=== PATIENT | female | born 1965 | race Caucasian/White ===

== ENCOUNTER 2017-07-12 18:32 | Emergency (ER) | payer BC, SELFPAY ==
[2017-07-12 18:33] VITALS: BP 134/100; PULSE 110; RESP 16; TEMP 36.8; O2SAT 98; BMI 25.4
--- NOTE | 2017-07-12 19:02 | CT_ITS ---
CT abdomen pelvis w con CLINICAL INDICATION: Left lower quadrant pain ITS.REASON: LLQ ABD PAIN ORDERING PHYSICIAN: Luis Schmidt MD PATIENT AGE: 52 years COMPARISON: 01/10/2017 TECHNIQUE: Axial images obtained with sagittal and coronal reformats. PROCEDURE: Oral Contrast: None IV Contrast: 75 mL's of [id number]. FINDINGS: No change lower lobe calcified and noncalcified nodules. Prior cholecystectomy with mild biliary prominence which may be related to the previous cholecystectomy. There are small calcific densities adjacent to the common bile duct unchanged likely due to calcified nodes. The spleen, adrenal glands, and pancreas are unremarkable. There is mild submucosal enhancement of the gastric antrum and followers. No obstructing renal or ureteral calculi. There is a 9 mm stone in the mid aspect of the right kidney within a calyx. There are bilateral renal cysts measuring up to 2.4 cm and the left kidney not significant change dating back to 01/08/2016. Nonobstructing uptake calculus lower pole left kidney at 2 mm. Unremarkable appendix. There is diverticulosis of the descending and sigmoid colon with no evidence of diverticulitis. No intestinal obstruction or free air. Prior hysterectomy. No pelvic mass or abnormal fluid collection. No acute bony anomalies. IMPRESSION: 1. Submucosal enhancement and thickening of the gastric antrum and pylorus which may represent gastritis. 2. Bilateral nephrolithiasis, bilateral renal cysts 3. Colonic diverticulosis
[2017-07-12 19:08] LABS: Microscopic, Urine URINE MICROSCOPIC (MICROSCOPIC)
[2017-07-12 19:09] LABS: Basophils % 0.3 % (0.1-2.0); Eosinophils # 0.1 K/mm3 (0.0-0.4); Hematocrit 51.3 % (37.0-47.0); Hemoglobin 16.4 g/dL (12.2-16.2); Lymphocytes # 1.1 K/mm3 (0.7-4.5); Lymphocytes % 16.1 K/mm3 (10-50); Mean Corpuscular HGB Conc 31.9 g/dL (31.8-35.4); Mean Corpuscular Hemoglobin 29.2 pg (27.0-31.2); Mean Corpuscular Volume 91.5 fl (81-99); Mean Platelet Volume 7.6 fl (7.4-10.4); Monocytes # 0.4 K/mm3 (0.1-1.0); Monocytes % 6.3 % (1.7-9.3); Neutrophils # 5.1 K/mm3 (1.8-7.8); Neutrophils % 76.3 % (37.0-80.0); Platelet Count 233 K/mm3 (142-424); Red Blood Count 5.61 M/mm3 (4.20-5.40); Red Cell Distribution Width 12.6 % (11.5-17.5); White Blood Count 6.6 K/mm3 (4.8-10.8)
--- NOTE | 2017-07-12 19:09 | HMH.EDABDPAI ---
ED Disposition Clinical Impression: Gastritis Qualifiers: Gastritis type: other gastritis Chronicity: acute Gastritis bleeding: without bleeding Qualified Code(s): K29.00 - Acute gastritis without bleeding Disposition: Home, Self-Care Condition on Discharge: Good Instructions: [place] Diet, DI for Gastritis Additional Instructions: This is a bland diet, avoid alcohol, NSAIDs, coffee, etc. Take the Protonix daily, as discussed. Follow-up with Dr. Kincaid (GI specialist) if not better. Prescriptions: Pantoprazole Sodium [Protonix 40mg tablet] 40 mg PO DAILY 30 Days #30 tab Referrals: Whit Gee MD [Primary Care Provider] - Dwain Kincaid MD [Staff Physician] - Time of Disposition: 22:08 - Critical Care Critical Care Time: No Attestation: On , the high probability of a clinically significant, sudden or life threatening deterioration of the following system(s) required my full and direct attention, intervention and personal management. The time I documented below is in addition to time spent performing reported procedures but includes the following listed in this critical care notation. Medical Decision Making - Medical Records Medical records reviewed: Yes: I reviewed the patient's medical records. Vital Signs: 07/12/17 18:33 Temperature 98.3 F Temperature Source Oral Pulse Rate [Right Brachial] 110 H Respiratory Rate 16 Blood Pressure [Right Arm] 134/100 Blood Pressure Mean [Right Arm] 111 Blood Pressure Source [Right Arm] Automatic Cuff Blood Pressure Position [Right Arm] Sitting 02 Sat by Pulse Oximetry 98 Oxygen Delivery Method Room Air - Lab Data Lab results reviewed: Yes: I reviewed the patient's lab results. Lab Results 07/12/17 19:00: Urine Color Yellow, Urine Appearance Clear, Urine pH 6.0, Ur Specific [place] 1.025, Urine Protein Negative, Urine Glucose (UA) Negative, Urine Ketones 15, Urine Blood Trace-i, Urine Nitrate Negative, Urine Bilirubin Negative, Urine Urobilinogen 0.2, Ur Leukocyte Esterase Negative, Urine RBC 3-5, Urine WBC 3-5, Ur Squamous Epith Cells 5-10, Urine Bacteria 2+, Urine Mucus 3+ 07/12/17 19:00: WBC 6.6, RBC 5.61 H, Hgb 16.4 H, Hct 51.3 H, MCV 91.5, MCH 29.2, MCHC 31.9, RDW 12.6, Plt Count 233, MPV 7.6, Neut % (Auto) 76.3, Lymph % (Auto) 16.1, [place] % (Auto) 6.3, Eos % (Auto) 1.0, Baso % (Auto) 0.3, Neut # (Auto) 5.1, Lymph # (Auto) 1.1, [place] # (Auto) 0.4, Eos # (Auto) 0.1, Baso # (Auto) 0.0 07/12/17 19:00: Sodium 139, Potassium 3.5, Chloride 102, Carbon Dioxide 32, Anion Gap 8.5, BUN 10, Creatinine 0.73, Estimated Creat Clear 91, Estimated GFR 84, Est GFR ( Amer) 102, Glucose 101, Calcium 8.7, Total Bilirubin 0.5, AST 22, ALT 26, Alkaline Phosphatase 66, Total Protein 7.5, Albumin 3.9, Globulin 3.6 H, Albumin/Globulin Ratio 1.1, Amylase 37, Lipase 136 Result diagrams: 07/12/17 19:00 07/12/17 19:00 Orders (Tests/Meds): ED MEDICATIONS Discontinued Medications Generic Name Dose Route Start Last Admin Trade Name Freq PRN Reason Stop Dose Admin Hydromorphone HCl 0.5 mg 07/12/17 18:56 07/12/17 19:07 Dilaudid 2mg/Ml Syringe IV 07/12/17 18:57 0.5 mg ONCE ONE Administration Iopamidol 75 ml 07/13/17 02:29 07/12/17 20:25 [id number]; 75ml Vial IV 07/13/17 02:30 75 ml ONCE ONE Administration Ondansetron HCl 4 mg 07/12/17 18:59 07/12/17 19:07 Zofran 4mg/2ml Vial IV 07/12/17 19:00 4 mg ONCE ONE Administration Ondansetron HCl 4 mg 07/12/17 22:06 07/12/17 22:19 Zofran 4mg/2ml Vial IV 07/12/17 22:07 4 mg ONCE ONE Administration Pantoprazole Sodium 40 mg 07/12/17 21:45 07/12/17 22:19 Protonix 40mg Vial IV 07/12/17 21:46 40 mg ONCE ONE Administration Pantoprazole Sodium 40 mg 07/12/17 22:06 07/12/17 22:19 Protonix 40mg Tablet PO 07/12/17 22:07 40 mg ONCE ONE Administration Promethazine HCl 1 ricci 07/12/17 22:07 07/12/17 22:19 Phenergan 25mg Tablet Take Home Pack (10) PO 07/26
[2017-07-12 19:23] LABS: Alanine Aminotransferase 26 U/L (12-78); Albumin Level 3.9 gm/dL (3.4-5.0); Albumin/Globulin Ratio 1.1 (1.1-1.8); Alkaline Phosphatase 66 U/L (46-116); Amylase 37 U/L (25-125); Anion Gap 8.5 mEq/L (5-15); Aspartate Amino Transferase 22 U/L (15-37); Bilirubin,Total 0.5 mg/dL (0.2-1.0); Blood Urea Nitrogen 10 mg/dL (7-18); Calcium 8.7 mg/dL (8.5-10.1); Carbon Dioxide 32 mmol/L (21.0-32.0); Chloride 102 mmol/L (98-107); Creatinine Clearance Estimated 91 mL/min (0-300); Creatinine,Serum 0.73 mg/dL (0.55-1.02); Estimated Glomerular Filt Rate 84 ml/min (>60); GFR (African American) 102 ML/MIN (>60); Globulin 3.6 gm/dl (1.3-3.2); Glucose 101 mg/dL (74-106); Lipase 136 u/L (73-393); Potassium 3.5 mmoL/L (3.5-5.1); Sodium 139 mmol/L (136-145); Total Protein,Serum 7.5 gm/dL (6.4-8.2)
[2017-07-12 19:24] LABS: Appearance,Urine CLEAR (Clear); Bilirubin,Urine Negative (Negative); Blood, Urine TRACE-I (Negative); Color,Urine YELLOW (Yellow); Glucose,Urine (UA) Negative (Negative); Ketones,Urine 15 (Negative); Leukocyte Esterase,Urine Negative (Negative); Nitrate,Urine Negative (Negative); Protein,Urine Negative (Negative); Specific Gravity, Urine 1.025 (1.005-1.030); Urobilinogen,Urine 0.2 EU/dl (0.2)
[2017-07-12 20:18] LABS: Bacteria,Urine 2+ /lpf; Mucus,Urine 3+ /lpf
== END 2017-07-12 22:24 | disposition home or self-care (01) ==
LOC: ER 19:12
PROVIDERS: Emergency Provider Emergency Medicine; Family Provider Family Medicine; PCP Family Medicine
DX: K29.00 Acute gastritis without bleeding (principal); Z88.8 Allergy status to other drugs, medicaments and biological substances
CPT/HCPCS: 74177; 80053; 81001; 82150; 83690; 85025; 87086; 96360; 96365; 96366; 96375; 96376; 99282; J2405; Q9967

== ENCOUNTER → 2017-07-18 13:25 | Outpatient (CLI) | payer BC, SELFPAY ==
[2017-07-18 16:41] LABS: Free T4 (Free Thyroxine) 1.42 ng/dl (0.76-1.46); Thyroid Stimulating Hormone 0.82 uIU/ml (0.358-3.740)
[2017-07-20 18:23] LABS: Triiodothyronine (T3) Free 2.7 pg/mL (2.0-4.4)
== END ==
PROVIDERS: PCP Family Medicine; Visit Provider Internal Medicine Endocrinology, Diabetes & Metabolism
DX: E03.8 Other specified hypothyroidism (principal); E06.3 Autoimmune thyroiditis
CPT/HCPCS: 36415; 84439; 84443; 84481

== ENCOUNTER → 2017-09-25 17:15 | Outpatient (CLI) | payer BC, SELFPAY ==
[2017-09-25 19:59] LABS: Free T4 (Free Thyroxine) 1.26 ng/dl (0.76-1.46); Thyroid Stimulating Hormone 0.33 uIU/ml (0.358-3.740)
[2017-09-27 09:11] LABS: Triiodothyronine (T3) Free 3.2 pg/mL (2.0-4.4)
== END ==
PROVIDERS: PCP Family Medicine; Visit Provider Internal Medicine Endocrinology, Diabetes & Metabolism
DX: E03.8 Other specified hypothyroidism (principal); E06.3 Autoimmune thyroiditis
CPT/HCPCS: 36415; 84439; 84443; 84481

== ENCOUNTER → 2017-11-01 17:48 | Outpatient (CLI) | payer BC, SELFPAY ==
[2017-11-01 19:23] LABS: Free T4 (Free Thyroxine) 1.21 ng/dl (0.76-1.46); Thyroid Stimulating Hormone 0.76 uIU/ml (0.358-3.740)
[2017-11-04 06:27] LABS: Triiodothyronine (T3) Free 2.6 pg/mL (2.0-4.4)
== END ==
PROVIDERS: Visit Provider Internal Medicine Endocrinology, Diabetes & Metabolism
DX: E03.8 Other specified hypothyroidism (principal); E06.3 Autoimmune thyroiditis
CPT/HCPCS: 36415; 84439; 84443; 84481

== ENCOUNTER → 2018-02-15 10:22 | Outpatient (CLI) | payer BC, SELFPAY ==
[2018-02-15 11:49] LABS: Basophils % 0.5 % (0.1-2.0); Eosinophils # 0.1 K/mm3 (0.0-0.4); Eosinophils % 1.5 % (0.1-12.0); Hematocrit 46.6 % (37.0-47.0); Hemoglobin 14.7 g/dL (12.2-16.2); Lymphocytes # 2.1 K/mm3 (0.7-4.5); Lymphocytes % 34.6 K/mm3 (10-50); Mean Corpuscular HGB Conc 31.6 g/dL (31.8-35.4); Mean Corpuscular Hemoglobin 28.6 pg (27.0-31.2); Mean Corpuscular Volume 90.6 fl (81-99); Mean Platelet Volume 7.9 fl (7.4-10.4); Monocytes # 0.3 K/mm3 (0.1-1.0); Monocytes % 4.6 % (1.7-9.3); Neutrophils # 3.5 K/mm3 (1.8-7.8); Neutrophils % 58.7 % (37.0-80.0); Platelet Count 248 K/mm3 (142-424); Red Blood Count 5.14 M/mm3 (4.20-5.40); Red Cell Distribution Width 12.5 % (11.5-17.5); White Blood Count 5.9 K/mm3 (4.8-10.8)
[2018-02-15 12:38] LABS: Cholesterol 208 mg/dL (140-200); Potassium 4.4 mmoL/L (3.5-5.1); Sodium 141 mmol/L (136-145)
[2018-02-15 13:01] LABS: Anion Gap 15.4 mEq/L (5-15); Blood Urea Nitrogen 14 mg/dL (7-18); Calcium 8.9 mg/dL (8.5-10.1); Carbon Dioxide 28 mmol/L (21.0-32.0); Chloride 102 mmol/L (98-107); Chol/HDL Ratio 2.2 (1-3.5); Creatinine,Serum 0.72 mg/dL (0.55-1.02); Estimated Glomerular Filt Rate 85 ml/min (>60); GFR (African American) 103 ML/MIN (>60); Glucose 102 mg/dL (74-106); HDL Cholesterol 94 mg/dL (29-89); LDL Cholesterol 105 mg/dL (0-130); Thyroid Stimulating Hormone 0.47 uIU/ml (0.358-3.740); Triglycerides 46 mg/dL (30-200); VLDL Cholesterol 9 mg/dL (0-40)
== END ==
PROVIDERS: PCP Internal Medicine Adolescent Medicine; Visit Provider Internal Medicine Adolescent Medicine
DX: E03.9 Hypothyroidism, unspecified (principal); E03.8 Other specified hypothyroidism; E06.3 Autoimmune thyroiditis
CPT/HCPCS: 36415; 80048; 80061; 84443; 85025

== ENCOUNTER → 2018-03-29 15:32 | Outpatient (CLI) | payer BC, SELFPAY ==
[2018-03-29 17:38] LABS: Free T4 (Free Thyroxine) 0.98 ng/dl (0.76-1.46); Thyroid Stimulating Hormone 1.03 uIU/ml (0.358-3.740)
[2018-04-01 04:07] LABS: Triiodothyronine (T3) Free 2.3 pg/mL (2.0-4.4)
== END ==
PROVIDERS: PCP Internal Medicine Adolescent Medicine; Visit Provider Internal Medicine Endocrinology, Diabetes & Metabolism
DX: E03.8 Other specified hypothyroidism (principal); E06.3 Autoimmune thyroiditis
CPT/HCPCS: 36415; 84439; 84443; 84481

== ENCOUNTER 2018-07-05 13:00 | Outpatient (RCR) | payer BC, SELFPAY | END 2018-07-05 13:05 | disposition home or self-care (01) | LOC: PT 13:00 | PROVIDERS: Visit Provider Podiatrist | DX: M54.5 Low back pain (principal); M54.16 Radiculopathy, lumbar region | CPT/HCPCS: 97010; 97012; 97014; 97110; 97140; 97163; G0283 ==

== ENCOUNTER → 2018-09-11 09:32 | Outpatient (CLI) | payer BC, SELFPAY ==
[2018-09-11 11:05] LABS: Free T4 (Free Thyroxine) 1.29 ng/dl (0.76-1.46); Thyroid Stimulating Hormone 0.57 uIU/ml (0.358-3.740)
[2018-09-12 08:18] LABS: Triiodothyronine (T3) Free 2.9 pg/mL (2.0-4.4)
== END ==
PROVIDERS: Visit Provider Internal Medicine Endocrinology, Diabetes & Metabolism
DX: E03.8 Other specified hypothyroidism (principal); E06.3 Autoimmune thyroiditis
CPT/HCPCS: 36415; 84439; 84443; 84481

== ENCOUNTER → 2018-12-10 08:08 | Outpatient (CLI) | payer BC, SELFPAY ==
--- NOTE | 2018-12-10 08:10 | MR_ITS ---
MR lumbar spine wo/w con, MR 3-d myelogram/MRCP HISTORY: Low back pain, bilateral leg pain, numbness and tingling. Left leg worse. Bilateral feet tenderness. Prior Discectomy in . .REASON: PARESTHESIA OF LOWER EXTREMITY, HX OF LUMBAR DISCECTOMY ORDERING PHYSICIAN: Carly Diamond APRN PATIENT AGE: 53 years Comparison: None TECHNIQUE: Standard multiplanar multiecho sequences are performed without and with gadolinium enhancement contrast. 3-D MIP and myelographic images are also rendered and reviewed FINDINGS: There is normal alignment. Spinal cord ends at the T12-L1 level. L1-L2 and L2-L3 have an unremarkable appearance. L3-L4: Mild concentric bulging disc with a small broad-based central disc protrusion slightly eccentric toward the left abutting the anteromedial aspect of the left L4 nerve root without displacement. Mild facet and ligamentum flavum hypertrophy. L4-L5: Degenerative disc disease with bulging disc with facet and ligamentum hypertrophy. Minimal foraminal disc protrusion on the left. The bulging disc does abut the major aspect of both L5 nerve roots. Bilateral lateral recess narrowing present. There is mild right-sided foraminal narrowing. L5-S1: Degenerative disc disease. Prior laminectomy on the left. There is defect within the disc posteriorly on the left this level which may be due to the prior surgery. There is some mild enhancement of the perineural soft tissues medial to the left S1 nerve root consistent with some mild epidural fibrosis. No extruded herniated disc is evident. IMPRESSION: 1. L3-L4: Mild concentric bulging disc with a small broad-based central disc protrusion slightly eccentric toward the left abutting the anteromedial aspect of the left L4 nerve root without displacement. Mild facet and ligamentum flavum hypertrophy. 2. L4-L5: Degenerative disc disease with bulging disc with facet and ligamentum hypertrophy. Minimal foraminal disc protrusion on the left. The bulging disc does abut the anterior aspect of both L5 nerve roots. Bilateral lateral recess narrowing present. There is mild right-sided foraminal narrowing. 3. L5-S1: Degenerative disc disease. Prior laminectomy on the left. There is defect within the disc posteriorly on the left this level which may be due to the prior surgery. There is some mild enhancement of the perineural of the left S1 nerve root consistent with some mild epidural fibrosis. 4. No extruded herniated disc or canal stenosis
== END ==
PROVIDERS: PCP Nurse Practitioner Family; Visit Provider Nurse Practitioner Family
DX: R20.2 Paresthesia of skin (principal); Z98.890 Other specified postprocedural states
CPT/HCPCS: 72158; 76376; A9576

== ENCOUNTER → 2018-12-12 17:34 | Outpatient (CLI) | payer BC, SELFPAY ==
[2018-12-12 18:16] LABS: Basophils % 0.4 % (0.1-2.0); Eosinophils # 0.1 K/mm3 (0.0-0.4); Eosinophils % 1.2 % (0.1-12.0); Hematocrit 43.2 % (37.0-47.0); Hemoglobin 13.3 g/dL (12.2-16.2); Lymphocytes # 2.3 K/mm3 (0.7-4.5); Lymphocytes % 27.4 % (10-50); Mean Corpuscular HGB Conc 30.7 g/dL (31.8-35.4); Mean Corpuscular Hemoglobin 27.2 pg (27.0-31.2); Mean Corpuscular Volume 88.7 fl (81-99); Mean Platelet Volume 7.6 fl (7.4-10.4); Monocytes # 0.5 K/mm3 (0.1-1.0); Monocytes % 5.5 % (1.7-9.3); Neutrophils # 5.4 K/mm3 (1.8-7.8); Neutrophils % 65.5 % (37.0-80.0); Platelet Count 284 K/mm3 (142-424); Red Blood Count 4.87 M/mm3 (4.20-5.40); Red Cell Distribution Width 12.3 % (11.5-17.5); White Blood Count 8.2 K/mm3 (4.8-10.8)
[2018-12-12 19:02] LABS: Free Thyroxine Index 3.6 ug/dL (5.93-13.13); T4 (Thyroxine) 11.4 ug/dl (4.7-13.3); Triiodothryronine (T3) Uptake 32 % (31-39)
[2018-12-15 21:38] LABS: Vitamin B12 927 pg/mL (232-1245); Vitamin D 25 Hydroxy 38.1 ng/mL (30.0-100.0)
== END ==
PROVIDERS: Visit Provider Nurse Practitioner Family
DX: R20.2 Paresthesia of skin (principal)
CPT/HCPCS: 36415; 82607; 82652; 84436; 84443; 84479; 85025

== ENCOUNTER 2018-12-27 23:12 | Observation (INO) ==
[2018-12-27 23:38] LABS: Microscopic, Urine URINE MICROSCOPIC (MICROSCOPIC)
[2018-12-27 23:40] LABS: Appearance,Urine CLEAR (Clear); Bilirubin,Urine Negative (Negative); Blood, Urine Negative (Negative); Color,Urine YELLOW (Yellow); Glucose,Urine (UA) Negative (Negative); Ketones,Urine 1+ (Negative); Leukocyte Esterase,Urine Negative (Negative); Protein,Urine Negative (Negative); Urobilinogen,Urine 0.2 EU/dl (0.2)
[2018-12-27 23:41] LABS: WBC,Urine Occasional #/hpf (0-3)
[2018-12-27 23:52] LABS: Basophils % 0.3 % (0.1-2.0); Eosinophils # 0.1 K/mm3 (0.0-0.4); Eosinophils % 0.8 % (0.1-12.0); Hematocrit 45.5 % (37.0-47.0); Hemoglobin 13.9 g/dL (12.2-16.2); Lymphocytes # 2.4 K/mm3 (0.7-4.5); Lymphocytes % 19.6 % (10-50); Mean Corpuscular HGB Conc 30.7 g/dL (31.8-35.4); Mean Corpuscular Volume 92.8 fl (81-99); Mean Platelet Volume 7.9 fl (7.4-10.4); Monocytes # 0.5 K/mm3 (0.1-1.0); Monocytes % 4.2 % (1.7-9.3); Neutrophils # 9.2 K/mm3 (1.8-7.8); Platelet Count 314 K/mm3 (142-424); Red Cell Distribution Width 12.9 % (11.5-17.5); White Blood Count 12.3 K/mm3 (4.8-10.8)
[2018-12-28 00:05] LABS: Albumin/Globulin Ratio 1.1 (1.1-1.8); Bilirubin,Total 0.4 mg/dL (0.2-1.0); C-Reactive Protein 11.2 mg/L (0.0-0.9); Calcium 8.6 mg/dL (8.5-10.1); Globulin 3.5 gm/dl (1.3-3.2); Total Protein,Serum 7.5 gm/dL (6.4-8.2)
--- NOTE | 2018-12-28 00:52 | Emergency Department Note ---
ED Disposition Clinical Impression: Diverticulitis Sepsis Qualifiers: Sepsis type: sepsis due to unspecified organism Qualified Code(s): A41.9 - Sepsis, unspecified organism Disposition: Admitted As Inpatient Condition on Discharge: Good Instructions: DI for Acute Abdomen Referrals: Ilya Mejía MD [Primary Care Provider] - - Critical Care Critical Care Time: No Attestation: On 12/27/18, the high probability of a clinically significant, sudden or life threatening deterioration of the following system(s) required my full and direct attention, intervention and personal management. The time I documented below is in addition to time spent performing reported procedures but includes the following listed in this critical care notation. Medical Decision Making - Medical Records Medical records reviewed: Yes: I reviewed the patient's medical records. - Lan Inquiry Pt receiving controlled substance: No Vital Signs: 12/27/18 23:14 12/27/18 23:23 Temperature 98.2 F 98.2 F Temperature Source Oral Oral Pulse Rate [Right] 102 H 102 H Respiratory Rate 20 20 Blood Pressure [Right Arm] 132/52 L 132/52 L Blood Pressure Mean [Right Arm] 78 78 02 Sat by Pulse Oximetry 100 100 - Lab Data Lab results reviewed: Yes: I reviewed the patient's lab results. Lab Results 12/27/18 23:31: Urine Color Yellow, Urine Appearance Clear, Urine pH 7.0, Ur Specific [place] 1.020, Urine Protein Negative, Urine Glucose (UA) Negative, Urine Ketones 1+, Urine Blood Negative, Urine Nitrate Negative, Urine Bilirubin Negative, Urine Urobilinogen 0.2, Ur Leukocyte Esterase Negative, Urine WBC Occasional, Ur Squamous Epith Cells 10-20 12/27/18 23:40: WBC 12.3 H, RBC 4.90, Hgb 13.9, Hct 45.5, MCV 92.8, MCH 28.5, MCHC 30.7 L, RDW 12.9, Plt Count 314, MPV 7.9, Neut % (Auto) 75.0, Lymph % (Auto) 19.6, [place] % (Auto) 4.2, Eos % (Auto) 0.8, Baso % (Auto) 0.3, Neut # (Auto) 9.2 H, Lymph # (Auto) 2.4, [place] # (Auto) 0.5, Eos # (Auto) 0.1, Baso # (Auto) 0.0 12/27/18 23:40: Sodium 139, Potassium 4.0, Chloride 101, Carbon Dioxide 28, Anion Gap 14.0, BUN 13, Creatinine 0.69, Estimated Creat Clear 99, Estimated GFR 89, Est GFR ( Amer) 108, Glucose 89, Calcium 8.6, Total Bilirubin 0.4, AST 24, ALT 34, Alkaline Phosphatase 87, C-Reactive Protein 11.2 H, Total Prote in 7.5, Albumin 4.0, Globulin 3.5 H, Albumin/Globulin Ratio 1.1, Amylase 44, Lipase 361 12/27/18 23:40: Lactate 0.6 12/27/18 23:40: ESR 19 Result diagrams: 12/27/18 23:40 12/27/18 23:40 Orders (Tests/Meds): ED MEDICATIONS Generic Name Dose Route Start Last Admin Trade Name Freq PRN Reason Stop Dose Admin Sodium Chloride 1,000 mls @ 999 mls/hr 12/27/18 23:30 12/27/18 23:41 Sod Chlor 0.9% 1000ml Bag IV 12/28/18 00:30 999 mls/hr .Q1H1M JEFF Administration Clindamycin Phosphate 900 mg/ 106 mls @ 100 mls/hr 12/28/18 01:45 Sodium Chloride IV 01/11/19 01:44 Q8H JEFF Protocol Levofloxacin/Dextrose 750 mg in 150 mls @ 100 mls/hr 12/28/18 01:45 Levofloxacin 750mg/150ml Premix IV 01/11/19 01:44 Q24H JEFF Protocol Discontinued Medications Generic Name Dose Route Start Last Admin Trade Name Freq PRN Reason Stop Dose Admin Ioversol 75 ml 12/28/18 00:37 12/28/18 00:38 Rad-Optiray 350 100ml Vial IV 12/28/18 00:38 75 ml ONCE ONE Administration Protocol Ketorolac Tromethamine 30 mg 12/27/18 23:27 12/27/18 23:41 Toradol 30mg/Ml Vial IV 12/27/18 23:28 30 mg ONCE ONE Administration Ondansetron HCl 4 mg 12/27/18 23:27 12/27/18 23:41 Zofran 4mg/2ml Vial IV 12/27/18 23:28 4 mg ONCE ONE Administration Sodium Chloride 10 ml 12/28/18 00:37 12/28/18 00:38 Rad-Saline Flush 10ml Syringe IV 12/28/18 00:38 10 ml ONCE ONE Administration ORDERS Category Date Time Status CT abdomen pelvis w con Stat Cat Scan 12/27/18 23:26 Taken Blood Culture Stat Micro 12/27/18 23:28 Received - CT Data CT Scan: Abdomen, Pelvis Time Received: 01:[address] Reviewed: Yes: I have viewed the radiologist's interpretation Preliminary Findings: Abnormal (diverticulitis) Nausea/Vomiting/Diarrhea HPI - General Chief complaint: Abdominal Pain Stated complaint: abd pain left side Time Seen by Provider: 12/27/18 23:20 Mode of Arrival: Ambulatory Source of Information: Patient, Medical Record Limitations: No Limitations Description of Symptoms (Recalled from ER Triage Doc. by RN): Pt states since last night she has had lower left sided abd pain with nausea, denies diarrhea or vomiting. - History of Present Illness HPI Narrative: pt with progressive lt lower abd pain with nausea and has hx of diverticulitis MD complaint: nausea, abdominal pain Onset (ago): hour(s) Associated Abdominal Pain: Yes Location of pain: LLQ Severity: moderate Associated symptoms: denies other symptoms - Related Data Home Medications Medication Instructions Recorded Confirmed diazepam 2 mg tablet 2 mg PO QHS tab 06/27/18 12/27/18 levothyroxine 88 mcg tablet 75 mcg PO ONCE tab 06/27/18 12/27/18 Previous Rx's Medication Instructions Recorded phenazopyridine 200 mg tablet 200 mg PO TID 0 Days #6 tab 12/22/18 sulfamethoxazole 800 1 tab PO BID 10 Days #20 tab 12/22/18 mg-trimethoprim 160 mg tablet Allergies Allergy/AdvReac Type Severity Reaction Status Date / Time codeine [CODEINE] Allergy Intermediate SEVERE Verified 12/22/18 17:20 NAUSEA AND VOMITING morphine [MORPHINE] Allergy Intermediate SEVERE Verified 12/22/18 17:20 NAUSEA cefaclor [From CECLOR] Allergy Mild Verified 12/22/18 17:20 metronidazole [From FLAGYL] Allergy Unknown Verified 12/22/18 17:20 [facility] History - Hepatitis A Screen Drug use history?: No High risk sexual behaviors?: No History of sexually transmitted infection?: No Currently employed?: No Childcare worker?: No Do you have indoor plumbing?: Yes Do you have electricity?: Yes Attestation statement:: This patient has been screened for Hepatitis A risk factors. I have reviewed the patient's past medical history: Yes Medical History: Reports:: Gastroesophageal Reflux Disease(GERD) Denies:: Cancer, Diabetes Mellitus Type 1, Diabetes Mellitus Type 2, MRSA Other Medical History: Reports: Hypothyroidism Other Surgeries: Yes: No Previous Surgery, Cholecystectomy, Hysterectomy- Partial, Other Amputation: No Fractures: No - Social History Smoking Status: Never smoker Alcohol Intake: never Substance Use Type: denies use Occupational Status: employed Housing: house Household Members: family Family Hx:: No significant family history ROS Obtained: Yes All systems reviewed & no additional complaints - Constitutional Constitutional: Denies fever(s) - Eyes Eyes: Denies change in vision - ENT Ears, Nose, Mouth, and Throat: Denies sore throat - Cardiovascular Cardiovascular: Denies chest pain - Respiratory Respiratory: No cough - Gastrointestinal Gastrointestingal: Reports: as per HPI, abdominal pain, nausea. Denies: diarrhea, bright red blood in stools, black, tarry stools - Genitourinary Female Genitourinary: Denies abnormal vaginal bleeding, Denies urinary hesitancy, Denies urinary urgency - Musculoskeletal Musculoskeletal: Denies joint pain - Integumentary/Breasts Skin/Breast: Denies rash - Neurologic Neurologic: Denies seizure-like activity Physical Exam - General General appearance: alert, in distress - Head Head exam: normocephalic - Eye Eye exam: Present: PERRL, EOMI. Absent: scleral icterus - ENT ENT exam: Present: mucous membranes dry - Neck Neck exam: Present: trachea midline - Respiratory Respiratory exam: Absent: respiratory distress - Cardiovascular Cardiovascular exam: Present: regular rate, systolic murmur - Abdominal Exam Abdominal exam: Present: soft, tenderness. Absent: guarding, rebound, rigidity Abdominal tenderness: Present: LLQ, moderate - Extremities Exam Extremities exam: Present: full ROM - Back Exam Back exam: Absent: CVA tenderness (L) - Neurological Exam Neurological exam: Present: alert, oriented X3 - Psychiatric Psychiatric exam: Present: normal affect - Skin Skin exam: Absent: rash
[2018-12-28 07:03] LABS: Basophils % 0.2 % (0.1-2.0); Eosinophils % 0.2 % (0.1-12.0); Hematocrit 41.8 % (37.0-47.0); Hemoglobin 12.9 g/dL (12.2-16.2); Lymphocytes % 10.3 % (10-50); Mean Corpuscular HGB Conc 30.9 g/dL (31.8-35.4); Mean Corpuscular Volume 93.4 fl (81-99); Mean Platelet Volume 8.1 fl (7.4-10.4); Monocytes # 0.4 K/mm3 (0.1-1.0); Monocytes % 3.5 % (1.7-9.3); Neutrophils # 8.5 K/mm3 (1.8-7.8); Neutrophils % 85.8 % (37.0-80.0); Platelet Count 246 K/mm3 (142-424); Red Blood Count 4.48 M/mm3 (4.20-5.40); Red Cell Distribution Width 12.8 % (11.5-17.5); White Blood Count 9.9 K/mm3 (4.8-10.8)
[2018-12-28 07:09] LABS: Anion Gap 10.6 mEq/L (5-15); Calcium 8.2 mg/dL (8.5-10.1)
[2018-12-28 07:19] LABS: Lymphocytes % 3 % (10-50); Monocytes % 13 % (2-9); Neutrophils % 79 % (42-76); RBC Morphology Normal; Total Cells Counted 100
--- NOTE | 2018-12-28 08:31 | History & Physical Report ---
*Admission Date: 12/28/18 *Chief complaint: abdominal pain *History of present illness: Ms. Courtney is a 53-year-old female with history of diverticulosis, reflux, anxiety, upper thyroidism, and kidney stones. She states she was camping this for the holiday and had abrupt onset of left lower quadrant abdominal pain and nausea yesterday. She came to the hospital due to the pain where she was found to have tachycardia, elevated white cell count, and a CT positive for pericolonic stranding indicative of diverticulitis. She is denies any nausea this morning, chest pain, shortness of breath, diarrhea, vomiting. States her abdominal pain is slightly better. Of note she was 5 days into a course of Bactrim for a UTI diagnosed on Sunday. Otherwise feels well with no acute complaints. Is afebrile and hemodynamically stable on interview this morning [facility] History I have reviewed the patient's past medical history: Yes Medical History: Reports:: Gastroesophageal Reflux Disease(GERD) Denies:: Cancer, Diabetes Mellitus Type 1, Diabetes Mellitus Type 2, MRSA *Have you ever received a pneumonia vaccine?: No *Have you received a flu vaccine this season?: Yes Other Medical History: Reports: Hypothyroidism Other Surgeries: Yes: No Previous Surgery, Cholecystectomy, Hysterectomy- Partial, Other Amputation: No Fractures: No - *Social History Educational Level: Completed College Smoking Status: Never smoker Alcohol Intake: never Substance Use Type: denies use *Occupational Status:: employed Housing: house Household Members: spouse *Travel in the last 8 weeks: Inside the [facility] - Psychiatric History Expresses thoughts of harming self/others: None Suicide Plan Description: No Plan Family Hx:: No significant family history Review of Systems - Review of Systems Review of systems:: pertinent systems reviewed and negative unless documented below (14pt review of systems performed with pertinent positives and negatives as stated previously.) - *Neurologic Denies seizure-like activity Meds Home Medications Medication Instructions Recorded Confirmed Type diazepam 2 mg tablet 2 mg PO NEEDED PRN tab 06/27/18 12/28/18 History phenazopyridine 200 mg tablet 200 mg PO TID 0 Days #6 tab 12/22/18 12/27/18 Rx sulfamethoxazole 800 1 tab PO BID 10 Days #20 tab 12/22/18 12/28/18 Rx mg-trimethoprim 160 mg tablet Ciprofloxacin HCl [Ciprofloxacin 500 mg PO BID 12 Days #24 tab 12/28/18 Rx 500mg Tab] Doxycycline Hyclate [Doxycycline 100 mg PO Q12 12 Days #24 cap 12/28/18 Rx 100mg Capsule] Levothyroxine Sodium 75 mcg PO DAILY 12/28/18 12/28/18 History [Levothyroxine 75mcg (0.075mg) Tab] Allergies Allergy/AdvReac Type Severity Reaction Status Date / Time codeine [CODEINE] Allergy Intermediate SEVERE Verified 12/22/18 17:20 NAUSEA AND VOMITING morphine [MORPHINE] Allergy Intermediate SEVERE Verified 12/22/18 17:20 NAUSEA cefaclor [From CECLOR] Allergy Mild Verified 12/22/18 17:20 metronidazole [From FLAGYL] Allergy Unknown Verified 12/22/18 17:20 Exam Vital signs and Labs for Last 24 Hours: Temp Pulse Resp BP Pulse Ox 97.6 F 81 18 102/72 L 98 12/28/18 03:58 12/28/18 03:58 12/28/18 03:58 12/28/18 04:00 12/28/18 03:58 Laboratory Results - last 24 hr 12/27/18 23:31: Urine Color Yellow, Urine Appearance Clear, Urine pH 7.0, Ur Specific [place] 1.020, Urine Protein Negative, Urine Glucose (UA) Negative, Urine Ketones 1+, Urine Blood Negative, Urine Nitrate Negative, Urine Bilirubin Negative, Urine Urobilinogen 0.2, Ur Leukocyte Esterase Negative, Urine WBC Occasional, Ur Squamous Epith Cells 10-20 12/27/18 23:40: WBC 12.3 H, RBC 4.90, Hgb 13.9, Hct 45.5, MCV 92.8, MCH 28.5, MCHC 30.7 L, RDW 12.9, Plt Count 314, MPV 7.9, Neut % (Auto) 75.0, Lymph % (Auto) 19.6, [place] % (Auto) 4.2, Eos % (Auto) 0.8, Baso % (Auto) 0.3, Neut # (Auto) 9.2 H, Lymph # (Auto) 2.4, [place] # (Auto) 0.5, Eos # (Auto) 0.1, Baso # (Auto) 0.0 12/27/18 23:40: Sodium 139, Potassium 4.0, Chloride 101, Carbon Dioxide 28, Anion Gap 14.0, BUN 13, Creatinine 0.69, Estimated Creat Clear 99, Estimated GFR 89, Est GFR ( Amer) 108, Glucose 89, Calcium 8.6, Total Bilirubin 0.4, AST 24, ALT 34, Alkaline Phosphatase 87, C-Reactive Protein 11.2 H, Total Protein 7.5, Albumin 4.0, Globulin 3.5 H, Albumin/Globulin Ratio 1.1, Amylase 44, Lipase 361 12/27/18 23:40: Lactate 0.6 12/27/18 23:40: ESR 19 12/28/18 06:27: WBC 9.9, RBC 4.48, Hgb 12.9, Hct 41.8, MCV 93.4, MCH 28.8, MCHC 30.9 L, RDW 12.8, Plt Count 246, MPV 8.1, Neut % (Auto) 85.8 H, Lymph % (Auto) 10.3, [place] % (Auto) 3.5, Eos % (Auto) 0.2, Baso % (Auto) 0.2, Neut # (Auto) 8.5 H, Lymph # (Auto) 1.0, [place] # (Auto) 0.4, Eos # (Auto) 0.0, Baso # (Auto) 0.0, Total Counted 100, Neutrophils % (Manual) 79 H, Lymphocytes % (Manual) 3 L, Atypical Lymphs % 5.0, Monocytes % (Manual) 13 H, Platelet Estimate Normal, RBC Morphology Normal 12/28/18 06:27: Sodium 138, Potassium 4.6, Chloride 104, Carbon Dioxide 28, Anion Gap 10.6, BUN 11, Creatinine 0.67, Estimated Creat Clear 104, Estimated GFR 92, Est GFR ( Amer) 112, Glucose 133 H D, Calcium 8.2 L I & O for Last 24 hours: Intake & Output 12/25/18 12/26/18 12/27/18 12/28/18 23:59 23:59 23:59 23:59 Intake Total 1405 / 1405 Output Total 175 / 175 Balance 1230 / 1230 Weight 65.771 kg 66.848 kg - *Routine HEENT Exam Head: Present: normocephalic Eye: Present: EOMI, PERRL ENT: Present: mucous membranes moist - *Routine Neck Exam Present: supple. Absent: lymphadenopathy - *Routine Respiratory Exam Present: CTA bilaterally - *Routine Cardiovascular Exam Present: RRR - *Routine Abdominal Exam Present: soft, normoactive bowel sounds, tenderness (Left lower quadrant medial to iliac crest. Mild tenderness in right abdomen as well. Nondistended, no guarding.) - *Routine Extremities Exam Absent: cyanosis, clubbing, edema - *Routine Skin Exam Present: warm. Absent: rash - *Routine Neurological Exam Present: alert, oriented X3 - Detailed Eye Exam Eyelids: Left normal inspection Assessment and Plan (1) Diverticulitis Current visit: Yes Status: Acute Category: Medical Code(s): K57.92 - Diverticulitis of intestine, part unspecified, without perforation or abscess without bleeding See CT report for full description. Left lower quadrant, no abscess. Abx as ordered. Advance diet, monitor for improvement. If Sx defervesce, likely DC tomorrow or Sunday pending improvement and hemodynamic stability. (2) Sepsis Current visit: Yes Status: Acute Qualifiers: Sepsis type: sepsis due to unspecified organism Qualified Code(s): A41.9 - Sepsis, unspecified organism Category: Medical Code(s): A41.9 - Sepsis, unspecified organism presented with abdominal pain, leukocytosis >12k, tachycardia. Initaited on IV abx. Cultures obtained. CT positive for diverticulitis and left lower quadrant pericolic stranding. Monitor for improvement in pain. IV opiates PRN for pain. Will advance diet slowly with liquid diet today. (3) Hypothyroidism (acquired) Current visit: Yes Status: Chronic Category: Medical Code(s): E03.9 - Hypothyroidism, unspecified POA. continue home meds. (4) Urinary tract infection Current visit: No Status: Acute Qualifiers: Urinary tract infection type: acute cystitis Category: Medical Code(s): N39.0 - Urinary tract infection, site not specified POA. stopped out pt meds. Covered with inpt IV abx. Sx resolving. - Assessment and plan all Dx Assessment and Plan for all problems:: 53-year-old female with diverticulitis. Continue IV antibiotics and IV fluids. Will advance diet today with clear liquids for lunch and if tolerated, full liquids for dinner. Manage pain and nausea with p.o. meds. If remains stable with improvement in symptoms and advancement of diet, plan for discharge tomorrow on a course of ciprofloxacin and doxycycline to complete 14 days of medical management for diverticulitis.
--- NOTE | 2018-12-28 10:05 | Pharmacy Consult Notes ---
[facility] Pharmacy VTE Monitoring - Patient Demographics Admission date: 12/28/18 Report Date: 12/28/18 Time: 10:05 Allergies/Adverse Reactions: Patient Allergies codeine [CODEINE] Allergy (Intermediate, Verified 12/22/18 17:20) SEVERE NAUSEA AND VOMITING morphine [MORPHINE] Allergy (Intermediate, Verified 12/22/18 17:20) SEVERE NAUSEA cefaclor [From CECLOR] Allergy (Mild, Verified 12/22/18 17:20) metronidazole [From FLAGYL] Allergy (Unknown, Verified 12/22/18 17:20) Height: 1.63 m Weight: 66.848 kg Patient Problems: Current Active Problems (Updated 12/28/18 @ 08:35 by Ilya Mejía MD) Diverticulitis (Acute) Sepsis (Acute) Hypothyroidism (acquired) (Chronic) - VTE Risk Labs: VTE Related Lab Results Hgb 12.9 g/dL (12.2-16.2) 12/28/18 06:27 Hct 41.8 % (37.0-47.0) 12/28/18 06:27 Plt Count 246 K/mm3 (142-424) 12/28/18 06:27 BUN 11 mg/dL (7-18) 12/28/18 06:27 Creatinine 0.67 mg/dL (0.55-1.02) 12/28/18 06:27 Estimated Creat Clear 104 mL/min (50-200) 12/28/18 06:27 Was VTE Risk Assessment Performed: Yes VTE Score: 2 VTE Risk Level: Very Low Risk - Prophylaxis VTE Prophylaxis Ordered?: Yes Types of VTE Prophylaxis: TEDS Knee High Location of Applied Device: Bilateral Lower Extremeties
--- NOTE | 2018-12-28 16:09 | Discharge Summary ---
General - General Admission date:: 12/28/18 Discharge date: 12/29/18 HPI HPI: Ms. Courtney is a 53-year-old female with history of diverticulosis, reflux, anxiety, upper thyroidism, and kidney stones. She states she was camping this weekend for the holiday and had abrupt onset of left lower quadrant abdominal pain and nausea yesterday. She came to the hospital due to the pain where she was found to have tachycardia, elevated white cell count, and a CT positive for pericolonic stranding indicative of diverticulitis. She is denies any nausea this morning, chest pain, shortness of breath, diarrhea, vomiting. States her abdominal pain is slightly better. Of note she was 5 days into a course of Bactrim for a UTI diagnosed on Sunday. Otherwise feels well with no acute complaints. Is afebrile and hemodynamically stable on interview this morning Hospital Course Hospital Course: Initiated on IV antibiotics for diverticulitis. Patient symptoms of abdominal pain improved. Remained afebrile and hemodynamically stable. Transition to oral antibiotics to complete a course of ciprofloxacin and doxycycline. Diet was advanced during hospitalization with good tolerance. Patient improving and meeting criteria for discharge home. Denies nausea, diarrhea, emesis, dysuria, shortness of breath, chest pain. Medically stable for discharge home Objective Vital signs: Temp Pulse Resp BP Pulse Ox 97.5 F L 89 17 104/62 L 98 12/28/18 08:24 12/28/18 08:24 12/28/18 08:24 12/28/18 08:24 12/28/18 11:12 Narrative: - *Routine HEENT Exam Head: Present: normocephalic Eye: Present: EOMI, PERRL ENT: Present: mucous membranes moist - *Routine Neck Exam Present: supple. Absent: lymphadenopathy - *Routine Respiratory Exam Present: CTA bilaterally - *Routine Cardiovascular Exam Present: RRR - *Routine Abdominal Exam Present: soft, normoactive bowel sounds, interval improvement in tenderness (Left lower quadrant medial to iliac crest. Nondistended, no guarding.) - *Routine Extremities Exam Absent: cyanosis, clubbing, edema - *Routine Skin Exam Present: warm. Absent: rash - *Routine Neurological Exam Present: alert, oriented X3 Results Labs on day of discharge: Labs from last 24 hours 12/28/18 12/28/18 12/27/18 06:27 06:27 23:40 WBC 9.9 RBC 4.48 Hgb 12.9 Hct 41.8 MCV 93.4 MCH 28.8 MCHC 30.9 L RDW 12.8 Plt Count 246 MPV 8.1 Neut % (Auto) 85.8 H Lymph % (Auto) 10.3 [place] % (Auto) 3.5 Eos % (Auto) 0.2 Baso % (Auto) 0.2 Neut # (Auto) 8.5 H Lymph # (Auto) 1.0 [place] # (Auto) 0.4 Eos # (Auto) 0.0 Baso # (Auto) 0.0 Total Counted 100 Neutrophils % (Manual) 79 H Lymphocytes % (Manual) 3 L Atypical Lymphs % 5.0 Monocytes % (Manual) 13 H Platelet Estimate Normal RBC Morphology Normal ESR 19 Sodium 138 Potassium 4.6 Chloride 104 Carbon Dioxide 28 Anion Gap 10.6 BUN 11 Creatinine 0.67 Estimated Creat Clear 104 Estimated GFR 92 Est GFR ( Amer) 112 Glucose 133 H D Lactate Calcium 8.2 L Total Bilirubin AST ALT Alkaline Phosphatase C-Reactive Protein Total Protein Albumin Globulin Albumin/Globulin Ratio Amylase Lipase Urine Color Urine Appearance Urine pH Ur Specific [place] Urine Protein Urine Glucose (UA) Urine Ketones Urine Blood Urine Nitrate Urine Bilirubin Urine Urobilinogen Ur Leukocyte Esterase Urine WBC Ur Squamous Epith Cells 12/27/18 12/27/18 12/27/18 23:40 23:40 23:40 WBC 12.3 H RBC 4.90 Hgb 13.9 Hct 45.5 MCV 92.8 MCH 28.5 MCHC 30.7 L RDW 12.9 Plt Count 314 MPV 7.9 Neut % (Auto) 75.0 Lymph % (Auto) 19.6 [place] % (Auto) 4.2 Eos % (Auto) 0.8 Baso % (Auto) 0.3 Neut # (Auto) 9.2 H Lymph # (Auto) 2.4 [place] # (Auto) 0.5 Eos # (Auto) 0.1 Baso # (Auto) 0.0 Total Counted Neutrophils % (Manual) Lymphocytes % (Manual) Atypical Lymphs % Monocytes % (Manual) Platelet Estimate RBC Morphology ESR Sodium 139 Potassium 4.0 Chloride 101 Carbon Dioxide 28 Anion Gap 14.0 BUN 13 Creatinine 0.69 Estimated Creat Clear 99 Estimated GFR 89 Est GFR ( Amer) 108 Glucose 89 Lactate 0.6 Calcium 8.6 Total Bilirubin 0.4 AST 24 ALT 34 Alkaline Phosphatase 87 C-Reactive Protein 11.2 H Total Protein 7.5 Albumin 4.0 Globulin 3.5 H Albumin/Globulin Ratio 1.1 Amylase 44 Lipase 361 Urine Color Urine Appearance Urine pH Ur Specific [place] Urine Protein Urine Glucose (UA) Urine Ketones Urine Blood Urine Nitrate Urine Bilirubin Urine Urobilinogen Ur Leukocyte Esterase Urine WBC Ur Squamous Epith Cells 12/27/18 23:31 WBC RBC Hgb Hct MCV MCH MCHC RDW Plt Count MPV Neut % (Auto) Lymph % (Auto) [place] % (Auto) Eos % (Auto) Baso % (Auto) Neut # (Auto) Lymph # (Auto) [place] # (Auto) Eos # (Auto) Baso # (Auto) Total Counted Neutrophils % (Manual) Lymphocytes % (Manual) Atypical Lymphs % Monocytes % (Manual) Platelet Estimate RBC Morphology ESR Sodium Potassium Chloride Carbon Dioxide Anion Gap BUN Creatinine Estimated Creat Clear Estimated GFR Est GFR ( Amer) Glucose Lactate Calcium Total Bilirubin AST ALT Alkaline Phosphatase C-Reactive Protein Total Protein Albumin Globulin Albumin/Globulin Ratio Amylase Lipase Urine Color Yellow Urine Appearance Clear Urine pH 7.0 Ur Specific [place] 1.020 Urine Protein Negative Urine Glucose (UA) Negative Urine Ketones 1+ Urine Blood Negative Urine Nitrate Negative Urine Bilirubin Negative Urine Urobilinogen 0.2 Ur Leukocyte Esterase Negative Urine WBC Occasional Ur Squamous Epith Cells 10-20 DS: Diagnosis - Discharge Diagnosis (1) Diverticulitis Status: Acute (2) Sepsis Status: Resolved (3) Hypothyroidism (acquired) Status: Chronic (4) Urinary tract infection Status: Resolved Discharge Plan - Patient Discharge Instructions ACTIVITY: Continue current activity DIET: continue same diet Patient Instructions: DI for Diverticulitis, DI for Sepsis -- Adult - Follow up Plan Follow up with: Ilya Mejía MD [Primary Care Provider] - Disposition: Home, Self-Snf Medications: Home Medications Medication Instructions Recorded Confirmed Type diazepam 2 mg tablet 2 mg PO NEEDED PRN tab 06/27/18 12/28/18 History phenazopyridine 200 mg tablet 200 mg PO TID 0 Days #6 tab 12/22/18 12/27/18 Rx sulfamethoxazole 800 1 tab PO BID 10 Days #20 tab 12/22/18 12/28/18 Rx mg-trimethoprim 160 mg tablet Ciprofloxacin HCl [Ciprofloxacin 500 mg PO BID 12 Days #24 tab 12/28/18 Rx 500mg Tab] Doxycycline Hyclate [Doxycycline 100 mg PO Q12 12 Days #24 cap 12/28/18 Rx 100mg Capsule] Levothyroxine Sodium 75 mcg PO DAILY 12/28/18 12/28/18 History [Levothyroxine 75mcg (0.075mg) Tab] Prescriptions/Medication Reconciliation: New Doxycycline Hyclate [Doxycycline 100mg Capsule] 100 mg PO Q12 12 Days #24 cap Ciprofloxacin HCl [Ciprofloxacin 500mg Tab] 500 mg PO BID 12 Days #24 tab Continued diazepam 2 mg tablet 2 mg PO NEEDED PRN tab PRN Reason: TEETH GRINDING Discontinued phenazopyridine 200 mg tablet 200 mg PO TID 0 Days #6 tab sulfamethoxazole 800 mg-trimethoprim 160 mg tablet 1 tab PO BID 10 Days #20 tab No Action Levothyroxine Sodium [Levothyroxine 75mcg (0.075mg) Tab] 75 mcg PO DAILY
== END 2018-12-29 10:07 | disposition home or self-care (01) ==
LOC: ER 23:12 → 2ND 12-28 01:43 → INTOOBSV 12-28 01:55 → 2ND 12-28 01:59
PROVIDERS: ADMIT Emergency Medicine; ATTEND Internal Medicine Adolescent Medicine
DX: Z87.19 Personal history of other diseases of the digestive system; N39.0 Urinary tract infection, site not specified; Z88.6 Allergy status to analgesic agent; K57.92 Diverticulitis of intestine, part unspecified, without perforation or abscess without bleeding; E03.9 Hypothyroidism, unspecified; K21.9 Gastro-esophageal reflux disease without esophagitis; R00.0 Tachycardia, unspecified
CPT/HCPCS: 74177; 80048; 80053; 81001; 82150; 83605; 83690; 85007; 85025; 85651; 86140; 87040; 96365; 96367; 96375; 96376; 99284; G0378; J1956; J2405; Q9967

== ENCOUNTER → 2019-04-16 16:44 | Outpatient (CLI) | payer BC, SELFPAY ==
[2019-04-16 19:18] LABS: Free T4 (Free Thyroxine) 1.21 ng/dl (0.76-1.46)
[2019-04-18 07:34] LABS: Triiodothyronine (T3) Free 3.1 pg/mL (2.0-4.4); Vitamin B12 773 pg/mL (232-1245); Vitamin D 25 Hydroxy 29.7 ng/mL (30.0-100.0)
== END ==
PROVIDERS: Visit Provider Internal Medicine Endocrinology, Diabetes & Metabolism
DX: E03.8 Other specified hypothyroidism (principal); E06.3 Autoimmune thyroiditis; E04.1 Nontoxic single thyroid nodule; R53.83 Other fatigue
CPT/HCPCS: 36415; 82607; 82652; 84439; 84443; 84481

== ENCOUNTER → 2019-04-29 22:00 | Outpatient (CLI) | payer BC, SELFPAY | PROVIDERS: Visit Provider Internal Medicine Endocrinology, Diabetes & Metabolism | DX: R63.5 Abnormal weight gain (principal) ==

== ENCOUNTER → 2019-04-30 22:00 | Outpatient (CLI) | payer BC, SELFPAY | PROVIDERS: Visit Provider Internal Medicine Endocrinology, Diabetes & Metabolism | DX: R63.5 Abnormal weight gain (principal) ==

== ENCOUNTER → 2019-05-03 08:47 | Outpatient (CLI) | payer BC, SELFPAY ==
[2019-05-03 13:11] LABS: Anion Gap 14.5 mEq/L (5-15); Blood Urea Nitrogen 9 mg/dL (7-18); Calcium 8.7 mg/dL (8.5-10.1); Carbon Dioxide 28 mmol/L (21.0-32.0); Chloride 104 mmol/L (98-107); Creatinine,Serum 0.63 mg/dL (0.55-1.02); Estimated Glomerular Filt Rate 99 ml/min (>60); GFR (African American) 120 ML/MIN (>60); Glucose 102 mg/dL (74-106); Phosphorous 3.6 mg/dL (2.4-4.9); Potassium 4.5 mmoL/L (3.5-5.1); Sodium 142 mmol/L (136-145)
[2019-05-03 13:22] LABS: Hemoglobin A1C 5.9 % (0.0-7.0)
[2019-05-06 09:18] LABS: Insulin Level Total 15.4 uIU/mL (2.6-24.9)
== END ==
PROVIDERS: Visit Provider Internal Medicine Endocrinology, Diabetes & Metabolism
DX: R63.5 Abnormal weight gain (principal); E03.8 Other specified hypothyroidism; E06.3 Autoimmune thyroiditis
CPT/HCPCS: 36415; 80069; 82787; 83036; 83525

== ENCOUNTER → 2019-05-13 16:15 | Outpatient (CLI) | payer BC, SELFPAY | PROVIDERS: Visit Provider Internal Medicine Endocrinology, Diabetes & Metabolism | DX: E03.8 Other specified hypothyroidism (principal); E06.3 Autoimmune thyroiditis; E04.1 Nontoxic single thyroid nodule | CPT/HCPCS: 36415; 82787 ==

== ENCOUNTER → 2019-10-02 11:34 | Outpatient (CLI) | payer BC, SELFPAY ==
--- NOTE | 2019-10-02 11:39 | XR_ITS ---
PROCEDURE: XR KNEE RT 4V CLINICAL INDICATION: RT MEDIAL KNEE PAIN COMPARISON: No exams were available for comparison FINDINGS: No fracture or dislocation. No lytic or blastic change. There is normal mineralization. The joint spaces are well-preserved. No significant degenerative/arthritic changes. No erosive changes evident. Other findings:None. IMPRESSION: No acute findings. Dictated by: Moe Garcia MD 10/02/2019 13:06 Electronically signed by Moe Garcia MD in [place] 10/02/2019 13:06
== END ==
PROVIDERS: PCP Nurse Practitioner Family; Visit Provider Nurse Practitioner Family
DX: M25.561 Pain in right knee (principal); M70.51 Other bursitis of knee, right knee
CPT/HCPCS: 73564

== ENCOUNTER → 2019-10-10 10:04 | Outpatient (CLI) | payer BC, SELFPAY ==
--- NOTE | 2019-10-10 10:09 | MR_ITS ---
PROCEDURE: MR KNEE RT WO CON CLINICAL INDICATION: RIGHT MEDIAL KNEE PAIN Right knee popping with pain, severe pain COMPARISON: XR KNEE RT 4V from 10/02/2019 TECHNIQUE: Routine multiplanar multi echo sequences are performed without gadolinium enhancement. FINDINGS: The cruciate ligaments and collateral ligaments as well as the patellar tendon and quadriceps tendon appear intact. The patellar cartilage is preserved. No meniscal tear is evident. There is increased T2 signal involving the medial tibial plateau in the central aspect of the tibia at the interspinous region consistent with a bone bruise. There is a small knee joint effusion. There may be some minimal depression of the medial tibial plateau. No definite fracture lines however are identified. IMPRESSION: 1. Bone bruise of the medial tibial plateau and the central aspect of the tibia at the interspinous region with questionable minimal depression of the medial tibial plateau. 2. No internal derangement Dictated by: Moe Garcia MD 10/11/2019 09:38 Electronically signed by Moe Garcia MD in [place] 10/11/2019 09:38
== END ==
PROVIDERS: PCP Internal Medicine Adolescent Medicine; Visit Provider Nurse Practitioner Family
DX: M25.561 Pain in right knee (principal)
CPT/HCPCS: 73721

== ENCOUNTER → 2019-11-21 11:38 | Outpatient (CLI) | payer BC, SELFPAY ==
[2019-11-21 11:52] LABS: Basophils # 0.1 K/mm3 (0-0.2); Basophils % 0.9 % (0.1-2.0); Eosinophils # 0.1 K/mm3 (0.0-0.4); Eosinophils % 1.7 % (0.1-12.0); Hemoglobin 13.9 g/dL (12.2-16.2); Lymphocytes # 2.2 K/mm3 (0.7-4.5); Lymphocytes % 38.9 % (10-50); Mean Corpuscular HGB Conc 33.1 g/dL (31.8-35.4); Mean Corpuscular Hemoglobin 29.9 pg (27.0-31.2); Mean Corpuscular Volume 90.2 fl (81-99); Mean Platelet Volume 7.7 fl (7.4-10.4); Monocytes # 0.2 K/mm3 (0.1-1.0); Monocytes % 4.2 % (1.7-9.3); Neutrophils # 3.1 K/mm3 (1.8-7.8); Neutrophils % 54.3 % (37.0-80.0); Platelet Count 276 K/mm3 (142-424); Red Blood Count 4.66 M/mm3 (4.20-5.40); White Blood Count 5.7 K/mm3 (4.8-10.8)
[2019-11-21 13:40] LABS: Chloride 103 mmol/L (98-107); Potassium 4.2 mmoL/L (3.5-5.1); Sodium 141 mmol/L (136-145)
[2019-11-21 13:43] LABS: Alanine Aminotransferase 16 U/L (12-78); Albumin Level 4.3 g/dl (3.5-5.0); Albumin/Globulin Ratio 1.7 (1.1-1.8); Alkaline Phosphatase 63 U/L (38-126); Anion Gap 9.2 mEq/L (5-15); Aspartate Amino Transferase 26 U/L (14-36); Bilirubin,Total 0.5 mg/dl (0.2-1.3); Blood Urea Nitrogen 9 mg/dl (7-17); Calcium 9.2 mg/dl (8.4-10.2); Carbon Dioxide 33 mmol/L (22.0-30.0); Estimated Glomerular Filt Rate 105 ml/min (>60); GFR (African American) 127 ML/MIN (>60); Globulin 2.5 g/dL (1.3-3.2); Glucose 60 mg/dl (74-100); Total Protein,Serum 6.8 g/dl (6.3-8.2)
== END ==
PROVIDERS: Visit Provider Internal Medicine Adolescent Medicine
DX: R10.9 Unspecified abdominal pain (principal)
CPT/HCPCS: 36415; 80053; 85025

== ENCOUNTER 2020-01-01 17:26 | Emergency (ER) | payer BC, SELFPAY ==
[2020-01-01 17:40] VITALS: BP 121/67; PULSE 110; RESP 21; TEMP 36.8; O2SAT 99; BMI 27.3
[2020-01-01 17:52] LABS: Apearance,Urine Clear (Clear); Bilirubin,Urine Negative (Negative); Blood, Urine Negative (Negative); Color,Urine Yellow (Yellow); Glucose,Urine (UA) Negative (Negative); Ketones,Urine Negative (Negative); Protein,Urine Negative (Negative); Urobilinogen,Urine 0.2 EU/dl (0.2)
[2020-01-01 17:53] LABS: UTC Leukocyte Esterase,Urine Negative (Negative); UTC Nitrate,Urine Negative (Negative)
--- NOTE | 2020-01-01 18:03 | HMH.EDUTC ---
[facility] [place] Disposition Clinical Impression: Abdominal pain Qualifiers: Abdominal location: generalized Qualified Code(s): R10.84 - Generalized abdominal pain Disposition: Still a Patient Condition on Discharge: Fair Referrals: Ilya Mejía MD [Primary Care Provider] - Medical Decision Making - Medical Records Medical records reviewed: No: I reviewed the patient's medical records. - Lan Inquiry Pt receiving controlled substance: No Vital Signs: 01/01/20 17:40 01/01/20 18:24 Temperature 98.2 F 98.2 F Temperature Source Oral Oral Pulse Rate [Right Brachial] 110 H 110 H Respiratory Rate 21 16 Blood Pressure [Right Arm] 121/67 121/67 Blood Pressure Mean [Right Arm] 85 85 Blood Pressure Source [Right Arm] Automatic Cuff Automatic Cuff Blood Pressure Position [Right Arm] Sitting Sitting 02 Sat by Pulse Oximetry 99 99 Oxygen Delivery Method Room Air Room Air - Lab Data Lab results reviewed: Yes: I reviewed the patient's lab results. Lab Results 01/01/20 17:40: Urine Color Yellow, Urine Appearance Clear, Urine pH 7.0, Ur Specific [place] 1.010, Urine Protein Negative, Urine Glucose (UA) Negative, Urine Ketones Negative, Urine Blood Negative, Urine Nitrate Negative, Urine Bilirubin Negative, Urine Urobilinogen 0.2, Ur Leukocyte Esterase Negative 01/01/20 17:40: Urine Color Yellow, Urine Appearance Clear, Urine pH 7.0, Ur Specific [place] 1.015, Urine Protein Negative, Urine Glucose (UA) Negative, Urine Ketones Negative, Urine Blood Negative, Urine Nitrate Negative, Urine Bilirubin Negative, Urine Urobilinogen 0.2, Ur Leukocyte Esterase Negative, Urine RBC None, Urine WBC None, Ur Squamous Epith Cells 5-10, Urine Bacteria None 01/01/20 18:20: WBC 11.8 H, RBC 4.83, Hgb 14.7, Hct 43.9, MCV 91.0, MCH 30.4, MCHC 33.4, RDW 13.0, Plt Count 243, MPV 8.3, Neut % (Auto) 78.5, Lymph % (Auto) 16.9, [place] % (Auto) 3.5, Eos % (Auto) 0.9, Baso % (Auto) 0.3, Neut # (Auto) 9.3 H, Lymph # (Auto) 2.0, [place] # (Auto) 0.4, Eos # (Auto) 0.1, Baso # (Auto) 0.0 01/01/20 18:20: Sodium 137, Potassium 3.5, Chloride 100, Carbon Dioxide 31 H, Anion Gap 9.5, BUN 10, Creatinine 0.60, Estimated Creat Clear 118, Estimated GFR 105, Est GFR ( Amer) 127, Glucose 174 H, Calcium 9.2, Total Bilirubin 0.6, AST 27, ALT 19, Alkaline Phosphatase 73, Total Protein 7.5, Albumin 4.5, Globulin 3.0, Albumin/Globulin Ratio 1.5, Lipase 108 Result diagrams: 01/01/20 18:20 01/01/20 18:20 Orders (Tests/Meds): ED MEDICATIONS Discontinued Medications Generic Name Dose Route Start Last Admin Trade Name Kristian PRN Reason Stop Dose Admin Ioversol 75 ml 01/01/20 19:09 01/01/20 19:10 Rad-Optiray 350 100ml Vial IV 01/01/20 19:10 75 ml ONCE ONE Administration Protocol Sodium Chloride 10 ml 01/01/20 19:09 01/01/20 19:10 Rad-Saline Flush 10ml Syringe IV 01/01/20 19:10 10 ml ONCE ONE Administration ORDERS Category Date Time Status CT abdomen pelvis w con Stat Cat Scan 01/01/20 18:12 Taken Medical Decision Narrative: She was transferred to the ER for further evaluation. [facility] HPI - General Stated complaint: Abd Pain Time Seen by Provider: 01/01/20 17:50 Mode of Arrival: Ambulatory Source of Information: Patient Limitations: No Limitations Description of Symptoms (Recalled from Triage Doc. by RN): PATIENT C/O LOWER ABDOMINAL CRAMPING THAT RADIATES TO BACK AND IS TENDER TO TOUCH. SHE STATES THE PAIN BEGAN LAST NIGHT AND HAS GOTTEN PROGRESSIVELY WORSE. HAS A HISTORY OF DIVERTICULITIS. DENIES FEVER, N/V/D HEENT Symptoms (Recalled from RN notes): No Resp Symptoms (Recalled from RN notes): No Skin Symptoms (Recalled from RN notes): No MS Symptoms (Recalled from RN notes): No Functional Status (Recalled from RN notes): WNL - History of Present Illness Provider Complaint: She c/o abdominal pain since yesterday. She has a history of diverticulosis. Last year she was hospitalized with an episode of diverticulitis that she states fel
--- NOTE | 2020-01-01 18:09 | PC.NURSE ---
PATIENT SENT TO ER PER KEVIN LOW APRN FOR FURTHER EVALUATION. REPORT GIVEN TO Consuelo LOVING RN
--- NOTE | 2020-01-01 18:12 | CT_ITS ---
PROCEDURE: CT ABDOMEN PELVIS W CON CLINICAL INDICATION: abd pain Generalized abdominal pain COMPARISON: ABDPELW CT abdomen pelvis w con from 12/28/2018 TECHNIQUE: IV Contrast: 75ML OPTIRAY 350 Oral Contrast None Axial images obtained with sagittal and coronal reformats. All CT scans at the facility use one or more dose reduction, viz: automated exposure control, ma/kV adjustment per patient size (including targeted exams where dose is matched to indication, i.e. head), or iterative reconstruction technique. FINDINGS: LOWER THORAX: Stable nodular densities in the left lower lobe ABDOMEN & PELVIS: Small hiatal hernia. Prior cholecystectomy. The liver, spleen, adrenal glands, pancreas, have an unremarkable appearance. 8 mm calculus present in the mid to lower pole of the right kidney. No hydronephrosis. There is a 2.4 cm cyst in the mid polar region of the left kidney and a 3 mm calculus in the lower pole of the left kidney. No evidence of appendicitis There is pancolonic diverticulosis. There is stranding of the pericolic fat in the left lower quadrant at the junction of the descending and sigmoid colon with some thickening of the colon at this area consistent with acute diverticulitis. No abscess or perforation. Post hysterectomy change. Degenerative changes noted in the lumbar spine. There is scattered small sclerotic foci of the femurs consistent with bone islands. IMPRESSION: 1. Acute diverticulitis of the junction of the descending and sigmoid colon with pancolonic diverticulosis 2. No abscess or perforation 3. Stable nodular opacities in the left lower lobe. 4. Bilateral nephrolithiasis Dictated by: Moe Garcia MD 01/02/2020 09:10 Electronically signed by Moe Garcia MD in [place] 01/02/2020 09:10
[2020-01-01 18:24] VITALS: BP 121/67; PULSE 110; RESP 16; TEMP 36.8; O2SAT 99; BMI 26.9
[2020-01-01 18:31] LABS: Basophils % 0.3 % (0.1-2.0); Eosinophils # 0.1 K/mm3 (0.0-0.4); Eosinophils % 0.9 % (0.1-12.0); Hematocrit 43.9 % (37.0-47.0); Hemoglobin 14.7 g/dL (12.2-16.2); Lymphocytes % 16.9 % (10-50); Mean Corpuscular HGB Conc 33.4 g/dL (31.8-35.4); Mean Corpuscular Hemoglobin 30.4 pg (27.0-31.2); Mean Platelet Volume 8.3 fl (7.4-10.4); Monocytes # 0.4 K/mm3 (0.1-1.0); Monocytes % 3.5 % (1.7-9.3); Neutrophils # 9.3 K/mm3 (1.8-7.8); Neutrophils % 78.5 % (37.0-80.0); Platelet Count 243 K/mm3 (142-424); Red Blood Count 4.83 M/mm3 (4.20-5.40); White Blood Count 11.8 K/mm3 (4.8-10.8)
[2020-01-01 18:38] LABS: Chloride 100 mmol/L (98-107)
[2020-01-01 18:39] LABS: Potassium 3.5 mmoL/L (3.5-5.1); Sodium 137 mmol/L (136-145)
[2020-01-01 18:41] LABS: Alanine Aminotransferase 19 U/L (12-78); Alkaline Phosphatase 73 U/L (38-126); Aspartate Amino Transferase 27 U/L (14-36); Bilirubin,Total 0.6 mg/dl (0.2-1.3); Blood Urea Nitrogen 10 mg/dl (7-17); Creatinine Clearance Estimated 118 mL/min (50-200); Estimated Glomerular Filt Rate 105 ml/min (>60); GFR (African American) 127 ML/MIN (>60)
[2020-01-01 18:42] LABS: Microscopic, Urine URINE MICROSCOPIC (MICROSCOPIC)
[2020-01-01 18:42] LABS: Albumin Level 4.5 g/dl (3.5-5.0); Albumin/Globulin Ratio 1.5 (1.1-1.8); Anion Gap 9.5 mEq/L (5-15); Calcium 9.2 mg/dl (8.4-10.2); Carbon Dioxide 31 mmol/L (22.0-30.0); Glucose 174 mg/dl (74-100); Lipase 108 U/L (23-300); Total Protein,Serum 7.5 g/dl (6.3-8.2)
[2020-01-01 18:46] LABS: Appearance,Urine CLEAR (Clear); Bilirubin,Urine Negative (Negative); Blood, Urine Negative (Negative); Color,Urine YELLOW (Yellow); Glucose,Urine (UA) Negative (Negative); Ketones,Urine Negative (Negative); Leukocyte Esterase,Urine Negative (Negative); Nitrate,Urine Negative (Negative); Protein,Urine Negative (Negative); Specific Gravity, Urine 1.015 (1.005-1.030); Urobilinogen,Urine 0.2 EU/dl (0.2)
--- NOTE | 2020-01-01 19:04 | PC.NURSE ---
pt still with rad
--- NOTE | 2020-01-01 19:36 | HMH.EDABDPAI ---
ED Disposition Clinical Impression: Acute diverticulitis Disposition: Home, Self-Care Condition on Discharge: Good Instructions: DI for Diverticulitis Prescriptions: Moxifloxacin HCl 400 mg PO DAILY 10 Days #10 tab Transmission Status: Pending to [facility] # Promethazine HCl [Phenergan 12.5mg tablet] 12.5 mg PO Q6H PRN #6 tab PRN Reason: Vomiting Transmission Status: Pending to [facility] # Referrals: Ilya Mejía MD [Primary Care Provider] - - Critical Care Critical Care Time: No Attestation: On 01/01/20, the high probability of a clinically significant, sudden or life threatening deterioration of the following system(s) required my full and direct attention, intervention and personal management. The time I documented below is in addition to time spent performing reported procedures but includes the following listed in this critical care notation. Medical Decision Making - Medical Records Medical records reviewed: Yes: I reviewed the patient's medical records. - Lan Inquiry Pt receiving controlled substance: No Vital Signs: 01/01/20 17:40 01/01/20 18:24 Temperature 98.2 F 98.2 F Temperature Source Oral Oral Pulse Rate [Right Brachial] 110 H 110 H Respiratory Rate 21 16 Blood Pressure [Right Arm] 121/67 121/67 Blood Pressure Mean [Right Arm] 85 85 Blood Pressure Source [Right Arm] Automatic Cuff Automatic Cuff Blood Pressure Position [Right Arm] Sitting Sitting 02 Sat by Pulse Oximetry 99 99 Oxygen Delivery Method Room Air Room Air - Lab Data Lab Results 01/01/20 17:40: Urine Color Yellow, Urine Appearance Clear, Urine pH 7.0, Ur Specific [place] 1.010, Urine Protein Negative, Urine Glucose (UA) Negative, Urine Ketones Negative, Urine Blood Negative, Urine Nitrate Negative, Urine Bilirubin Negative, Urine Urobilinogen 0.2, Ur Leukocyte Esterase Negative 01/01/20 17:40: Urine Color Yellow, Urine Appearance Clear, Urine pH 7.0, Ur Specific [place] 1.015, Urine Protein Negative, Urine Glucose (UA) Negative, Urine Ketones Negative, Urine Blood Negative, Urine Nitrate Negative, Urine Bilirubin Negative, Urine Urobilinogen 0.2, Ur Leukocyte Esterase Negative, Urine RBC None, Urine WBC None, Ur Squamous Epith Cells 5-10, Urine Bacteria None 01/01/20 18:20: WBC 11.8 H, RBC 4.83, Hgb 14.7, Hct 43.9, MCV 91.0, MCH 30.4, MCHC 33.4, RDW 13.0, Plt Count 243, MPV 8.3, Neut % (Auto) 78.5, Lymph % (Auto) 16.9, [place] % (Auto) 3.5, Eos % (Auto) 0.9, Baso % (Auto) 0.3, Neut # (Auto) 9.3 H, Lymph # (Auto) 2.0, [place] # (Auto) 0.4, Eos # (Auto) 0.1, Baso # (Auto) 0.0 01/01/20 18:20: Sodium 137, Potassium 3.5, Chloride 100, Carbon Dioxide 31 H, Anion Gap 9.5, BUN 10, Creatinine 0.60, Estimated Creat Clear 118, Estimated GFR 105, Est GFR ( Amer) 127, Glucose 174 H, Calcium 9.2, Total Bilirubin 0.6, AST 27, ALT 19, Alkaline Phosphatase 73, Total Protein 7.5, Albumin 4.5, Globulin 3.0, Albumin/Globulin Ratio 1.5, Lipase 108 Result diagrams: 01/01/20 18:20 01/01/20 18:20 Orders (Tests/Meds): ED MEDICATIONS Discontinued Medications Generic Name Dose Route Start Last Admin Trade Name Freq PRN Reason Stop Dose Admin Ioversol 75 ml 01/01/20 19:01/01/20 19:10 Rad-Optiray 350 100ml Vial IV 01/01/20 19:10 75 ml ONCE ONE Administration Protocol Sodium Chloride 10 ml 01/01/20 19:01/01/20 19:10 Rad-Saline Flush 10ml Syringe IV 01/01/20 19:10 10 ml ONCE ONE Administration ORDERS Category Date Time Status CT abdomen pelvis w con Stat Cat Scan 01/01/20 18:12 Taken - CT Data CT Scan: Abdomen, Pelvis Time Received: 19:30 Findings Narrative: CT findings consistent with acute diverticulitis at the junction of the descending colon and sigmoid colon, pulmonary and splenic granulomata, hysterectomy, disc space narrowing. - Reevaluation(s) Time: 19:39 Reevaluation #1: On reevaluation, patient is feeling better. No evidence of dive
[2020-01-01 20:00] VITALS: BP 126/72; PULSE 97; RESP 16; TEMP 36.8; O2SAT 99
== END 2020-01-01 20:03 | disposition home or self-care (01) ==
LOC: UTC 17:32 → ER 18:09
PROVIDERS: Nurse Practitioner Family; Emergency Provider Emergency Medicine; PCP Internal Medicine Adolescent Medicine
DX: R10.84 Generalized abdominal pain (principal); K57.51 Diverticulosis of both small and large intestine without perforation or abscess with bleeding; E03.9 Hypothyroidism, unspecified; K21.9 Gastro-esophageal reflux disease without esophagitis; Z88.5 Allergy status to narcotic agent
CPT/HCPCS: 74177; 80053; 81001; 81003; 83690; 85025; 99283; Q9967

== ENCOUNTER → 2020-02-13 11:42 | Outpatient (CLI) | payer BC, SELFPAY ==
--- NOTE | 2020-02-13 11:46 | CT_ITS ---
PROCEDURE: CT ABDOMEN PELVIS W CON CLINICAL INDICATION: DIVERTICULOSIS, DIVERTICULITIS OF SIGMOID COLON Hx of sigmoid diverticulitis recent antibiotic therapy COMPARISON: CT CT ABDOMEN PELVIS W CON from 01/01/2020 TECHNIQUE: IV Contrast: 75ML OPTIRAY 350 Oral Contrast 450ml Redicat Axial images obtained with sagittal and coronal reformats. All CT scans at the facility use one or more dose reduction, viz: automated exposure control, ma/kV adjustment per patient size (including targeted exams where dose is matched to indication, i.e. head), or iterative reconstruction technique. FINDINGS: LOWER THORAX: There are at least 2 noncalcified nodules in the left lower lobe the largest of which is approximately 6 mm not significantly changed ABDOMEN & PELVIS: Prior cholecystectomy. The liver, spleen adrenal glands, and pancreas have an unremarkable appearance. There is mild nonspecific thickening of the GE junction and the stomach possibly related to nondistention. Esophagitis/gastritis would be included in the differential diagnosis. There are bilateral renal cysts. There is a 13 mm stone in the lower pole of the right kidney. There is some minimal cortical scarring peripheral to this stone. There are punctate left renal calculi measuring up to 2 mm. No ureteral calculi evident. No evidence of appendicitis intestinal obstruction or free air. There is lubin colonic diverticulosis. No evidence of diverticulitis. There is mild nonspecific thickening of the sigmoid colon which may be seen with chronic diverticulosis. Prior hysterectomy. Tiny umbilical hernia containing fat. There are few scattered small mesenteric lymph nodes. No acute bony anomalies. IMPRESSION: Extensive colonic diverticulosis. No evidence of diverticulitis. The previously noted diverticulitis in the left lower quadrant has improved. No abscess or perforation. Bilateral nephrolithiasis with bilateral renal cysts Other nonacute findings as detailed above Dictated by: Moe Garcia MD 02/14/2020 13:57 Moe Garcia MD in [place] 02/14/2020 13:57
== END ==
PROVIDERS: PCP Internal Medicine Adolescent Medicine; Visit Provider Internal Medicine Adolescent Medicine
DX: K57.32 Diverticulitis of large intestine without perforation or abscess without bleeding (principal); K57.90 Diverticulosis of intestine, part unspecified, without perforation or abscess without bleeding
CPT/HCPCS: 74177; Q9967

== ENCOUNTER 2020-07-20 04:52 | Emergency (ER) | payer BC, SELFPAY ==
[2020-07-20 05:05] VITALS: BP 133/82; PULSE 105; RESP 17; TEMP 37; O2SAT 98; BMI 27.8
--- NOTE | 2020-07-20 05:13 | CT_ITS ---
PROCEDURE: CT ABDOMEN PELVIS W CON CLINICAL INDICATION: abd pain Right lower quadrant pain and right flank pain COMPARISON: CT CT ABDOMEN PELVIS W CON from 02/13/2020 TECHNIQUE: IV Contrast: 75ML Isovue 370 Oral Contrast None Axial images obtained with sagittal and coronal reformats. All CT scans at the facility use one or more dose reduction, viz: automated exposure control, ma/kV adjustment per patient size (including targeted exams where dose is matched to indication, i.e. head), or iterative reconstruction technique. FINDINGS: LOWER THORAX: 4 mm noncalcified nodules present in the left lower lobe unchanged. ABDOMEN & PELVIS: Prior cholecystectomy. The liver, spleen, adrenal glands, have an unremarkable appearance. No pancreatic mass or peripancreatic fluid collection. There is a 10 mm stone in the mid to lower pole of the right kidney. There are punctate renal calculi on the left. Small bilateral renal cysts are present the largest in the left kidney anteriorly at 2 cm. No ureteral calculi. No hydronephrosis. The appendix has an unremarkable appearance. There is extensive colonic diverticulosis throughout the colon but no evidence of diverticulitis. Mild amount of retained colonic feces. There has been a prior hysterectomy. No acute bony findings. IMPRESSION: 1. No acute abdominal or pelvic findings. 2. Extensive colonic diverticulosis without diverticulitis. 3. Bilateral renal calculi. No ureteral calculi 4. No evidence of appendicitis. Dictated by: Moe Garcia MD 07/20/2020 06:22 Moe Garcia MD in [place] 07/20/2020 06:22
--- NOTE | 2020-07-20 05:22 | HMH.EDNVD ---
ED Disposition Clinical Impression: Diverticulosis, Sphincter of Oddi dysfunction Abdominal pain Qualifiers: Abdominal location: right upper quadrant Qualified Code(s): R10.11 - Right upper quadrant pain Disposition: Home, Self-Care Condition on Discharge: Good Instructions: DI for Acute Abdominal Pain Additional Instructions: call pcp for follow up today Prescriptions: Dicyclomine HCl [Bentyl 10mg capsule] 10 mg PO TID #15 cap Transmission Status: Pending to [facility] #[id number] Referrals: Jorge Esqueda MD [Primary Care Provider] - - Critical Care Critical Care Time: No Attestation: On , the high probability of a clinically significant, sudden or life threatening deterioration of the following system(s) required my full and direct attention, intervention and personal management. The time I documented below is in addition to time spent performing reported procedures but includes the following listed in this critical care notation. Medical Decision Making - Medical Records Medical records reviewed: Yes: I reviewed the patient's medical records. - Lan Inquiry Pt receiving controlled substance: No Vital Signs: 07/20/20 05:05 07/20/20 07:35 Temperature 98.6 F Temperature Source Oral Pulse Rate [Right Brachial] 105 H 83 Respiratory Rate 17 Blood Pressure [Right Arm] 133/82 118/58 L Blood Pressure Mean [Right Arm] 99 78 Blood Pressure Source [Right Arm] Automatic Cuff Automatic Cuff Blood Pressure Position [Right Arm] Sitting Sitting 02 Sat by Pulse Oximetry 98 96 Oxygen Delivery Method Room Air Room Air - Lab Data Lab results reviewed: Yes: I reviewed the patient's lab results. Lab Results 07/20/20 05:30: Urine Color Yellow, Urine Appearance Clear, Urine pH 6.0, Ur Specific [place] >= 1.030, Urine Protein Negative, Urine Glucose (UA) Negative, Urine Ketones 1+, Urine Blood Negative, Urine Nitrate Negative, Urine Bilirubin 1+ A, Urine Urobilinogen 0.2, Ur Leukocyte Esterase Negative, Urine RBC Occasional, Urine WBC 3-5, Ur Squamous Epith Cells 3-5 07/20/20 05:30: WBC 3.3 L, RBC 4.98, Hgb 14.5, Hct 44.5, MCV 89.5, MCH 29.0, MCHC 32.5, RDW 13.4, Plt Count 201, MPV 8.1, Neut % (Auto) 51.8, Lymph % (Auto) 38.4, [place] % (Auto) 7.8, Eos % (Auto) 1.4, Baso % (Auto) 0.5, Neut # (Auto) 1.7 L, Lymph # (Auto) 1.3, [place] # (Auto) 0.3, Eos # (Auto) 0.1, Baso # (Auto) 0.0, ESR 17 07/20/20 05:30: Sodium 136, Potassium 3.7, Chloride 101, Carbon Dioxide 25, BUN 15, Creatinine 0.60, Estimated Creat Clear 121, Estimated GFR 104, Est GFR ( Amer) 126, Glucose 116 H, Calcium 9.1, Total Bilirubin 0.4, Direct Bilirubin 0.3, Conjugated Bilirubin 0.0, Indirect Bilirubin 0.1, Unconjugated Bilirubin 0.1, AST 29, ALT 17, Alkaline Phosphatase 74, C-Reactive Protein 22.8 H, Total Protein 7.4, Albumin 4.3, Amylase 52 07/20/20 05:30: SARS-CoV-2 IgG Ab (Rapid) Negative, SARS-CoV-2 IgM Ab (Rapid) Negative 07/20/20 05:30: Lipase 115 Result diagrams: 07/20/20 05:30 07/20/20 05:30 Orders (Tests/Meds): ED MEDICATIONS Discontinued Medications Generic Name Dose Route Start Last Admin Trade Name Christophq PRN Reason Stop Dose Admin Hydromorphone HCl 1 mg 07/20/20 07:34 07/20/20 07:36 Hydromorphone 2mg/Ml Syringe IV 07/20/20 07:35 1 mg ONCE ONE Administration Iopamidol 75 ml 07/20/20 06:07 07/20/20 06:08 Iopamidol-370 (76%);100ml Bottle IV 07/20/20 06:08 75 ml ONCE ONE Administration Ketorolac Tromethamine 30 mg 07/20/20 06:39 07/20/20 06:45 Ketorolac 30mg/Ml Vial IV 07/20/20 06:40 30 mg ONCE ONE Administration Ondansetron HCl 4 mg 07/20/20 07:34 07/20/20 07:36 Ondansetron 4mg/2ml Vial IV 07/20/20 07:35 4 mg ONCE ONE Administration Sodium Chloride 10 ml 07/20/20 06:07 07/20/20 06:08 Sodium Chloride 0.9% 10ml Syr (Rad Only) IV 07/20/20 06:08 10 ml ONCE ONE Administration ORDERS Category Date Time Status Amylase Stat Lab 07/20/20 05:30 Results Basic
[2020-07-20 05:54] LABS: Microscopic, Urine URINE MICROSCOPIC (MICROSCOPIC)
[2020-07-20 05:58] LABS: Basophils % 0.5 % (0.1-2.0); Eosinophils # 0.1 K/mm3 (0.0-0.4); Eosinophils % 1.4 % (0.1-12.0); Hematocrit 44.5 % (37.0-47.0); Hemoglobin 14.5 g/dL (12.2-16.2); Lymphocytes # 1.3 K/mm3 (0.7-4.5); Lymphocytes % 38.4 % (10-50); Mean Corpuscular HGB Conc 32.5 g/dL (31.8-35.4); Mean Corpuscular Volume 89.5 fl (81-99); Mean Platelet Volume 8.1 fl (7.4-10.4); Monocytes # 0.3 K/mm3 (0.1-1.0); Monocytes % 7.8 % (1.7-9.3); Neutrophils # 1.7 K/mm3 (1.8-7.8); Neutrophils % 51.8 % (37.0-80.0); Platelet Count 201 K/mm3 (142-424); Red Blood Count 4.98 M/mm3 (4.20-5.40); Red Cell Distribution Width 13.4 % (11.5-17.5); White Blood Count 3.3 K/mm3 (4.8-10.8)
[2020-07-20 06:04] LABS: Lipase 115 U/L (23-300)
[2020-07-20 06:05] LABS: Alanine Aminotransferase 17 U/L (12-78); Albumin Level 4.3 g/dl (3.5-5.0); Alkaline Phosphatase 74 U/L (38-126); Amylase 52 U/L (30-110); Aspartate Amino Transferase 29 U/L (14-36); Bilirubin,Direct 0.3 mg/dl (0.0-0.4); Bilirubin,Indirect 0.1 mg/dL (0.0-0.9); Bilirubin,Total 0.4 mg/dl (0.2-1.3); Bilirubin,Unconjugated 0.1 mg/dL (0.0-1.1); Blood Urea Nitrogen 15 mg/dl (7-17); Calcium 9.1 mg/dl (8.4-10.2); Carbon Dioxide 25 mmol/L (22.0-30.0); Creatinine Clearance Estimated 121 mL/min (50-200); Estimated Glomerular Filt Rate 104 ml/min (>60); GFR (African American) 126 ML/MIN (>60); Glucose 116 mg/dl (74-100); Potassium 3.7 mmoL/L (3.5-5.1); Sodium 136 mmol/L (136-145); Total Protein,Serum 7.4 g/dl (6.3-8.2)
[2020-07-20 06:11] LABS: C-Reactive Protein 22.8 mg/L (0-4)
[2020-07-20 06:26] LABS: Coronavirus 19 IgG Antibody Negative (Negative); Coronavirus 19 IgM Antibody Negative (Negative)
[2020-07-20 06:29] LABS: Chloride 101 mmol/L (98-107)
[2020-07-20 06:31] LABS: Erythrocyte Sedimentation Rate 17 mm/hr (0-30)
[2020-07-20 06:40] LABS: Appearance,Urine CLEAR (Clear); Blood, Urine Negative (Negative); Color,Urine YELLOW (Yellow); Glucose,Urine (UA) Negative (Negative); Ketones,Urine 1+ (Negative); Leukocyte Esterase,Urine Negative (Negative); Nitrate,Urine Negative (Negative); Protein,Urine Negative (Negative); Specific Gravity, Urine >= 1.030 (1.005-1.030); Urobilinogen,Urine 0.2 EU/dl (0.2)
[2020-07-20 06:41] LABS: Bilirubin,Urine 1+ (Negative)
[2020-07-20 06:47] LABS: RBC,Urine Occasional #/hpf (0-3)
[2020-07-20 07:35] VITALS: BP 118/58; PULSE 83; O2SAT 96
[2020-07-20 08:08] VITALS: BP 110/59; PULSE 83; RESP 16; TEMP 37; O2SAT 98
== END 2020-07-20 08:09 | disposition home or self-care (01) ==
PROVIDERS: Emergency Provider Emergency Medicine; PCP Internal Medicine Adolescent Medicine
DX: K57.92 Diverticulitis of intestine, part unspecified, without perforation or abscess without bleeding (principal); K83.4 Spasm of sphincter of Oddi; K21.9 Gastro-esophageal reflux disease without esophagitis; E03.9 Hypothyroidism, unspecified; Z88.5 Allergy status to narcotic agent; Z01.84 Encounter for antibody response examination
CPT/HCPCS: 74177; 80048; 80076; 81001; 82150; 83690; 85025; 85651; 86140; 86328; 96374; 96375; 99283; J2405; Q9967

== ENCOUNTER → 2020-08-04 15:50 | Outpatient (CLI) | payer BC, SELFPAY | PROVIDERS: Visit Provider Internal Medicine Adolescent Medicine | DX: R35.0 Frequency of micturition (principal) | CPT/HCPCS: 87086 ==

== ENCOUNTER → 2020-12-13 13:05 | Outpatient (POV) | payer BC, SELFPAY | PROVIDERS: Visit Provider Nurse Practitioner Family | DX: Z00.00 Encounter for general adult medical examination without abnormal findings (principal) ==

== ENCOUNTER → 2020-12-21 15:19 | Outpatient (CLI) | payer BC, SELFPAY ==
--- NOTE | 2020-12-21 15:21 | US_ITS ---
PROCEDURE: US THYROID CLINICAL INDICATION: THYROID NODULE COMPARISON: No exams were available for comparison FINDINGS: Right lobe: 4.2 x 1.5 x 1.6 cm. Left lobe: 4 x 1 x 1.6 cm. Isthmus: Unremarkable Additional findings: Homogeneous echogenicity of both lobes. No cyst or nodule apparent IMPRESSION: Unremarkable thyroid ultrasound Dictated by: Moe Garcia MD 12/21/2020 17:47 Moe Garcia MD in [place] 12/21/2020 17:47
== END ==
LOC: RAD 15:19
PROVIDERS: PCP Internal Medicine Adolescent Medicine; Visit Provider Internal Medicine Endocrinology, Diabetes & Metabolism
DX: E04.1 Nontoxic single thyroid nodule (principal)
CPT/HCPCS: 76536

== ENCOUNTER 2021-05-09 16:34 | Emergency (ER) | payer BC, SELFPAY ==
[2021-05-09 16:44] VITALS: BP 0/0; PULSE 0; RESP 0; TEMP -17.7; TEMP 0
== END 2021-05-09 16:51 | disposition left against medical advice (07) ==
LOC: UTC 16:36
PROVIDERS: Emergency Provider Nurse Practitioner; PCP Internal Medicine Adolescent Medicine
DX: Z53.21 Procedure and treatment not carried out due to patient leaving prior to being seen by health care provider (principal)

== ENCOUNTER → 2021-05-11 18:45 | Outpatient (CLI) | payer BC, SELFPAY | PROVIDERS: Visit Provider Nurse Practitioner Family | DX: R30.0 Dysuria (principal) | CPT/HCPCS: 87086 ==

== ENCOUNTER → 2021-05-25 17:43 | Outpatient (CLI) | payer BC, SELFPAY | PROVIDERS: Visit Provider Nurse Practitioner Family | DX: R35.0 Frequency of micturition (principal) | CPT/HCPCS: 87086 ==

== ENCOUNTER → 2021-07-07 14:05 | Outpatient (CLI) | payer BC, SELFPAY ==
--- NOTE | 2021-07-07 14:17 | CT_ITS ---
FINAL REPORT CLINICAL HISTORY: PULOMONARY NODULE COMPARISON: 01/01/2020 FINDINGS: Axial CT images of the chest were obtained with contrast. Coronal reformatted images were also obtained. This study was performed with techniques to keep radiation doses as low as reasonably achievable, (ALARA). Individualized dose reduction techniques using automated exposure control or adjustment of mA and/or KV according to the patient's size were employed. There is no evidence of mediastinal or hilar mass or adenopathy. No axillary mass or adenopathy is identified. There are several calcified granulomas. There are 2, noncalcified nodules in left lower lobe measuring 4 mm each. Findings are stable since prior. No localized pulmonary inflammatory process is identified. Limited images of the upper abdomen reveal the patient to be status post cholecystectomy. IMPRESSION: Noncalcified left lower lobe nodules. Findings are stable since 01/01/2020 and most likely benign. If indicated, consider additional follow-up in 12 months. Reviewed, Interpreted and Dictated by Nicolas Hawley III, MD Transcribed by Tona Cooper Authenticated by Nicolas Hawley III, MD on 07/07/2021 03:51:[address] [facility]
[2021-07-07 14:43] LABS: Blood Urea Nitrogen 11 mg/dl (7-17); Estimated Glomerular Filt Rate 87 ml/min (>60); GFR (African American) 105 ML/MIN (>60)
== END ==
LOC: RAD 14:05
PROVIDERS: PCP Internal Medicine Adolescent Medicine; Visit Provider Obstetrics & Gynecology Gynecology
DX: Z01.818 Encounter for other preprocedural examination (principal); R91.1 Solitary pulmonary nodule
CPT/HCPCS: 36415; 71260; 82565; 84520; Q9967

== ENCOUNTER → 2021-07-21 09:43 | Outpatient (CLI) | payer BC, SELFPAY ==
--- NOTE | 2021-07-21 09:50 | MR_ITS ---
FINAL REPORT CLINICAL HISTORY: SPONDYLOSIS WITH RADICULOPATHY, NKI. FINDINGS: Multiplanar MR imaging of the lumbar spine was performed without contrast. On the sagittal T2-weighted images, there is abnormal decreased signal throughout the lumbar discs. There is moderate loss of disc height at L4-5 and L5-S1. The vertebrae are of normal height. The vertebral alignment is normal. L1-2: There is no significant canal stenosis or neural foraminal narrowing. L2-3: There is no significant canal stenosis or neural foraminal narrowing. L3-4: There is a small midline disc protrusion with mild compromise on the spinal canal. L4-5: There is a wjsj-xj-szfkwdvc diffuse disc bulge with mild bilateral neural foraminal narrowing. L5-S1: There is a ngic-cj-lsxhvtbs diffuse disc bulge with fxyg-qu-xlezrdki bilateral neural foraminal narrowing. IMPRESSION: Small midline disc protrusion at L3-L4. Diffuse disc bulges at L4-5 and L5-S1 with associated neural foraminal compromise. Reviewed, Interpreted and Dictated by Carloz Flores MD Transcribed by Giovanny West Authenticated by Carloz Flores MD on 07/21/2021 11:54:[address] [facility]
== END ==
LOC: RAD 09:44
PROVIDERS: PCP Internal Medicine Adolescent Medicine; Visit Provider Nurse Practitioner Family
DX: M47.26 Other spondylosis with radiculopathy, lumbar region
CPT/HCPCS: 72148

== ENCOUNTER → 2021-08-19 14:58 | Outpatient (CLI) | payer BC, SELFPAY ==
[2021-08-19 16:36] LABS: Alanine Aminotransferase 20 U/L (12-78); Albumin Level 4.1 g/dl (3.5-5.0); Albumin/Globulin Ratio 1.8 (1.1-1.8); Alkaline Phosphatase 63 U/L (38-126); Aspartate Amino Transferase 29 U/L (14-36); Bilirubin,Total 0.6 mg/dl (0.2-1.3); Blood Urea Nitrogen 18 mg/dl (7-17); Calcium 8.7 mg/dl (8.4-10.2); Carbon Dioxide 33 mmol/L (22.0-30.0); Chloride 99 mmol/L (98-107); Estimated Glomerular Filt Rate 87 ml/min (>60); GFR (African American) 105 ML/MIN (>60); Globulin 2.3 g/dL (1.3-3.2); Glucose 79 mg/dl (74-100); Sodium 138 mmol/L (136-145); Total Protein,Serum 6.4 g/dl (6.3-8.2)
[2021-08-19 16:52] LABS: Hemoglobin A1C 5.5 % (4.0-6.0)
[2021-08-19 16:53] LABS: Free T4 (Free Thyroxine) 1.73 ng/dl (0.78-2.19)
[2021-08-19 17:22] LABS: Thyroid Stimulating Hormone 0.14 uIU/mL (0.465-4.68)
[2021-08-21 08:12] LABS: Triiodothyronine (T3) Free 2.7 pg/mL (2.0-4.4)
== END ==
PROVIDERS: Visit Provider Internal Medicine Endocrinology, Diabetes & Metabolism
DX: E03.8 Other specified hypothyroidism (principal); E06.3 Autoimmune thyroiditis; R73.03 Prediabetes
CPT/HCPCS: 36415; 80053; 83036; 84439; 84443; 84481

== ENCOUNTER → 2021-09-15 10:29 | Outpatient (POV) | payer BC, SELFPAY ==
[2021-09-15 11:13] VITALS: BP 130/70; PULSE 94; RESP 20; TEMP 36.7; O2SAT 100; BMI 26.9
--- NOTE | 2021-09-15 12:44 | HMH.PMCON ---
Assessment and Plan (1) Bilateral sacroiliitis Status: Acute Category: Medical Code(s): M46.1 - Sacroiliitis, not elsewhere classified (2) Degenerative disc disease, lumbar Status: Acute Category: Medical Code(s): M51.36 - Other intervertebral disc degeneration, lumbar region (3) Lumbar radiculopathy Status: Acute Category: Medical Code(s): M54.16 - Radiculopathy, lumbar region - Assessment and plan all Dx Assessment and Plan for all problems:: CLINICAL HISTORY: SPONDYLOSIS WITH RADICULOPATHY, NKI. FINDINGS: Multiplanar MR imaging of the lumbar spine was performed without contrast. On the sagittal T2-weighted images, there is abnormal decreased signal throughout the lumbar discs. There is moderate loss of disc height at L4-5 and L5-S1. The vertebrae are of normal height. The vertebral alignment is normal. L1-2: There is no significant canal stenosis or neural foraminal narrowing. L2-3: There is no significant canal stenosis or neural foraminal narrowing. L3-4: There is a small midline disc protrusion with mild compromise on the spinal canal. L4-5: There is a euia-uq-dklkopdg diffuse disc bulge with mild bilateral neural foraminal narrowing. L5-S1: There is a cxya-oz-blgkdlya diffuse disc bulge with thfl-ye-aoytdfpv bilateral neural foraminal narrowing. IMPRESSION: Small midline disc protrusion at L3-L4. Diffuse disc bulges at L4-5 and L5-S1 with associated neural foraminal compromise. Reviewed, Interpreted and Dictated by Carloz Flores MD Transcribed by Giovanny West Authenticated by Carloz Flores MD on 07/21/2021 11:54:[address] [facility] Patient presents today as a new patient with chronic low back pain, bilateral hip pain. Patient states that she has pain on her bilateral upper buttock that radiates to her bilateral thighs and does not cross her knees. She cannot tolerate any full activity such as sitting, standing, and walking. Her bilateral SI are positive for EMILY, [place]'s, [place]'s, [place]'s, compression, and distraction. These presentations are consistent for bilateral sacroiliitis. I will schedule the patient for a bilateral SI injection. Risks and benefits of the procedure have been explained to the patient. Patient would like to proceed with the procedure. Patient has been instructed to contact the clinic with any concerns before the next appointment. Dr. Shepherd has reviewed this note and agrees with this plan of care. This note was dictated using voice recognition software and make contain errors or omissions. HPI - Data of Consult Patient: new to practice Consult date: 09/15/21 Requesting Physician: ARLENE Mcdonald - Consult Narrative Reason for consult: Chronic low back pain History of present illness: Ms. Courtney is a 56 year old female who presents today as a new patient. Patient is referred by Dr. Esqueda. Thank you for the referral. Patient presents today for chronic low back pain will lower extremities. She states that she has had low back pain since 1996. She has a history of back surgery 1997. She says that she continues to have pain since then but has been tolerating it. She tried and failed injective therapy in the past with Dr. Robbins. She has also gone to physical therapy with no relief. She does chiropractic adjustments twice a week for several years now. Even with these interventions, patient says that she started to have increasing right lower extremity pain since June. She denies any recent falls or traumas. She says that her left leg has been always bothering her until about 2 to 3 months ago. For other pain management she, she takes ibuprofen about 600 mg a day. Her pain today as 9 out of 10. [facility] #[id number] with an active morphine equivalent of 0. CC: ARLENE Mcdonald [facility] History I have reviewed the patient's past medical history: Yes Medical History: Reports:: Gastroesophageal Reflux Disease(GERD) Denies:: Cancer, Diabetes [place]
== END ==
PROVIDERS: Visit Provider Student in an Organized Health Care Education/Training Program
DX: M46.1 Sacroiliitis, not elsewhere classified (principal); M51.16 Intervertebral disc disorders with radiculopathy, lumbar region
CPT/HCPCS: 99202; G0463

== ENCOUNTER → 2021-11-22 13:40 | Outpatient (CLI) | payer BC, SELFPAY ==
[2021-11-22 15:40] LABS: Alanine Aminotransferase 17 U/L (12-78); Albumin Level 4.1 g/dl (3.5-5.0); Albumin/Globulin Ratio 1.8 (1.1-1.8); Alkaline Phosphatase 70 U/L (38-126); Aspartate Amino Transferase 28 U/L (14-36); Bilirubin,Total 0.2 mg/dl (0.2-1.3); Blood Urea Nitrogen 12 mg/dl (7-17); Calcium 8.8 mg/dl (8.4-10.2); Carbon Dioxide 29 mmol/L (22.0-30.0); Chloride 101 mmol/L (98-107); Estimated Glomerular Filt Rate 104 ml/min (>60); GFR (African American) 126 ML/MIN (>60); Globulin 2.3 g/dL (1.3-3.2); Glucose 128 mg/dl (74-100); Sodium 138 mmol/L (136-145); Total Protein,Serum 6.4 g/dl (6.3-8.2)
[2021-11-22 15:48] LABS: Hemoglobin A1C 5.5 % (4.0-6.0)
[2021-11-22 15:55] LABS: Free T4 (Free Thyroxine) 1.24 ng/dl (0.78-2.19)
[2021-11-22 16:10] LABS: Thyroid Stimulating Hormone 0.24 uIU/mL (0.465-4.68)
[2021-11-24 08:29] LABS: Triiodothyronine (T3) Free 3.3 pg/mL (2.0-4.4)
== END ==
LOC: LAB 13:44
PROVIDERS: PCP Internal Medicine Adolescent Medicine; Visit Provider Internal Medicine Endocrinology, Diabetes & Metabolism
DX: E03.8 Other specified hypothyroidism (principal); E06.3 Autoimmune thyroiditis; R73.03 Prediabetes
CPT/HCPCS: 36415; 80053; 83036; 84439; 84443; 84481

== ENCOUNTER 2021-12-11 04:45 | Emergency (ER) | payer BC, SELFPAY ==
[2021-12-11 04:46] VITALS: BP 141/74; PULSE 92; RESP 16; TEMP 36.6; O2SAT 100; BMI 26.9
[2021-12-11 05:03] LABS: Microscopic, Urine URINE MICROSCOPIC (MICROSCOPIC)
--- NOTE | 2021-12-11 05:13 | HMH.EDUROGF ---
ED Disposition Clinical Impression: Urinary tract infection Qualifiers: Urinary tract infection type: site unspecified Hematuria presence: without hematuria Qualified Code(s): N39.0 - Urinary tract infection, site not specified Disposition: Home, Self-Care Condition on Discharge: Good Instructions: DI for Urinary Tract Infection (UTI) Additional Instructions: use meds and see pcp for follow up Prescriptions: levoFLOXacin [Levaquin 500mg tab] 500 mg PO DAILY #7 tab Transmission Status: Pending to [facility] Referrals: Jorge Esqueda MD [Primary Care Provider] - - Critical Care Critical Care Time: No Attestation: On 12/11/21, the high probability of a clinically significant, sudden or life threatening deterioration of the following system(s) required my full and direct attention, intervention and personal management. The time I documented below is in addition to time spent performing reported procedures but includes the following listed in this critical care notation. Medical Decision Making - Medical Records Medical records reviewed: Yes: I reviewed the patient's medical records. - Lan Inquiry Pt receiving controlled substance: No Vital Signs: 12/11/21 04:46 Temperature 97.8 F Temperature Source Oral Pulse Rate [Left Radial] 92 H Respiratory Rate 16 Blood Pressure [Right Arm] 141/74 H Blood Pressure Mean [Right Arm] 96 Blood Pressure Source [Right Arm] Automatic Cuff Blood Pressure Position [Right Arm] Standing 02 Sat by Pulse Oximetry 100 Oxygen Delivery Method Room Air - Lab Data Lab results reviewed: Yes: I reviewed the patient's lab results. Lab Results 12/11/21 04:50: Urine Color Red, Urine Appearance Turbid, Urine pH 7.0, Ur Specific [place] 1.020, Urine Protein 2+, Urine Glucose (UA) Negative, Urine Ketones Negative, Urine Blood 2+, Urine Nitrate Positive, Urine Bilirubin Negative, Urine Urobilinogen 0.2, Ur Leukocyte Esterase 1+ A, Urine RBC Tntc, Urine WBC 50-100 Orders (Tests/Meds): ORDERS Category Date Time Status Urine Culture Stat Micro 12/11/21 04:50 Received Medical Decision Narrative: has uti and will use meds and ask pt to check on culture with pcp Female Urogenital HPI - General Chief complaint: Urogenital-Female Stated complaint: poss UTI Time Seen by Provider: 12/11/21 05:13 Mode of Arrival: Ambulatory Source of Information: Patient, Medical Record Limitations: No Limitations Description of Symptoms (Recalled from ER Triage Doc. by RN): URINARY FREQUENCY, PAIN AND BURNING WITH URINATION. PT REPORTS SHE TOOK OTC MEDS FOR RELIEF PRIOR TO ARRIVAL. PT DENIES ALL ABDOMINAL PAIN. - History of Present Illness HPI Narrative: acute onset of uti sx Complaint: dysuria Onset (ago): hour(s) Radiation: suprapubic Severity: moderate Urinary Symptoms: dysuria : No Associated symptoms: denies other symptoms - Related Data Home Medications Medication Instructions Recorded Confirmed Cholecalciferol (Vitamin D3) 1,000 unit PO DAILY 07/20/20 12/11/21 [Vitamin D3] Cyanocobalamin (Vitamin B-12) 1,000 mcg PO DAILY 07/20/20 12/11/21 [Vitamin B-12 1000mcg Tablet] Fluticasone Propionate [Flonase 2 spr NS DAILY 07/20/20 12/11/21 50mcg nasal spray 16gm] Levothyroxine Sodium [Synthroid 75 mcg PO DAILY 07/20/20 12/11/21 75mcg (0.075mg) tablet] Psyllium Husk (with Sugar) [Fiber 368 gm PO DAILY 07/20/20 12/11/21 Powder] Previous Rx's Medication Instructions Recorded levoFLOXacin [Levaquin 500mg 500 mg PO DAILY #7 tab 12/11/21 tab] Allergies Allergy/AdvReac Type Severity Reaction Status Date / Time codeine [CODEINE] Allergy Intermediate SEVERE Verified 08/13/20 15:10 NAUSEA AND VOMITING morphine [MORPHINE] Allergy Intermediate SEVERE Verified 08/13/20 15:10 NAUSEA cefaclor [From CECLOR] Allergy Mild Verified 08/13/20 15:10 metronidazole [From FLAGYL] Allergy Unknown Verified 08/13/20 15
[2021-12-11 05:30] LABS: Appearance,Urine TURBID (Clear); Bilirubin,Urine Negative (Negative); Blood, Urine 2+ (Negative); Color,Urine RED (Yellow); Glucose,Urine (UA) Negative (Negative); Ketones,Urine Negative (Negative); Leukocyte Esterase,Urine 1+ (Negative); Nitrate,Urine POSITIVE (Negative); Protein,Urine 2+ (Negative); Urobilinogen,Urine 0.2 EU/dl (0.2)
[2021-12-11 05:33] LABS: RBC,Urine TNTC #/hpf (0-3); WBC,Urine 50-100 #/hpf (0-3)
[2021-12-11 05:51] VITALS: BP 134/78; PULSE 88; RESP 16; TEMP 36.6; O2SAT 97
== END 2021-12-11 05:52 | disposition home or self-care (01) ==
PROVIDERS: Emergency Provider Emergency Medicine; PCP Internal Medicine Adolescent Medicine
DX: N39.0 Urinary tract infection, site not specified (principal); B96.20 Unspecified Escherichia coli [E. coli] as the cause of diseases classified elsewhere
CPT/HCPCS: 81001; 87086; 87088; 87186; 99283

== ENCOUNTER 2022-03-01 14:00 | Outpatient (RCR) | payer BC, SELFPAY ==
--- NOTE | 2022-01-26 17:28 | HMH.PTOPEV ---
PT Outpatient Evaluation Rehab PT Outpatient Evaluation Start: 01/26/22 15:49 Freq: Status: Active Protocol: Document 01/26/22 16:38 RAFAELGARDENIA (Rec: 01/26/22 17:27 CHARITY [id number]) Electronically Signed By Sagar Oviedo PT 01/26/22 16:38 Outpatient Therapy Subjective History Subjective History This is the initial Physical Therapy evaluation for Yodit Courtney. Pt reports to Pt for c/o chronic LBP. Pt reports pain began in 1996 when she herniated a disc - pt reports L4/L5 - pt states afterwards she had discectomy in 1997. Pt reports she has had chronic pain since this time. Pt states she has had multiple epidurals w/out relief, so much so she says I can't have anymore . Pt reports no relief from pain pills, muscle relaxers or steroids. Pt states she had nerve ablation ~ 1 month ago. Pt does state this decreased neural pain but this back pain bout has been aggravated since before . Chief Complaint Pain,Spasms,Stiff,Weakness Symptom Type Ache,Throb,Dull Symptoms Relieved By Nothing Symptoms Aggravated By Physical Activity Prior Functional Limitations Housework,Recreation Activity Current Functional Limitations Housework,Driving,Sleeping, Standing,Sitting,Recreation Activity,Walking,Bending/ Stooping Symptom Description Constant but Variable Level of pain today (0-10) 5 Pain scale - at its best (0-10) 4 Pain scale - at its worst (0-10) 8 Lumbopelvic Eval Posture Lumbar Spine Posture Standing Position Flattened Assistive device Assistive Devices None / NA Palapation tenderness bilateral lumbar spinal tenderness Yes paraspinal tenderness Yes buttock tenderness Yes Lumbar/Sacral Palpation Findings Tenderness Lumbar/Sacral Palpation Overall Comment TTP along R>L paraspinal , TTP B SIJ supierior ligament Range of Motion Lumbar Spine Active Flexion Range of 40 Motion (degrees) Lumbar Spine Active Extension Range of 10 Motion (degrees) Lumbar Spine ROM Limitations Soft Tissue Tightness,Pain Special Tests
== END 2022-03-01 14:05 | disposition home or self-care (01) ==
LOC: PT 14:00
PROVIDERS: PCP Internal Medicine Adolescent Medicine; Visit Provider Nurse Practitioner Family
DX: M54.50 Low back pain, unspecified (principal)
CPT/HCPCS: 97110; 97113; 97163

== ENCOUNTER → 2022-03-24 09:09 | Outpatient (CLI) | payer BC, SELFPAY ==
[2022-03-24 10:05] LABS: Hemoglobin A1C 5.5 % (4.0-6.0)
[2022-03-24 10:11] LABS: Albumin Level 3.9 g/dl (3.5-5.0); Anion Gap 11.5 mEq/L (5-15); Blood Urea Nitrogen 12 mg/dl (7-17); Calcium 8.5 mg/dl (8.4-10.2); Carbon Dioxide 31 mmol/L (22.0-30.0); Chloride 100 mmol/L (98-107); Estimated Glomerular Filt Rate 104 ml/min (>60); GFR (African American) 126 ML/MIN (>60); Glucose 109 mg/dl (74-100); Phosphorous 3.9 mg/dl (2.5-4.5); Potassium 4.5 mmoL/L (3.5-5.1); Sodium 138 mmol/L (136-145)
[2022-03-24 10:27] LABS: Free T4 (Free Thyroxine) 1.15 ng/dl (0.78-2.19)
[2022-03-24 10:42] LABS: Thyroid Stimulating Hormone 0.62 uIU/mL (0.465-4.68)
== END ==
PROVIDERS: PCP Internal Medicine Adolescent Medicine; Visit Provider Internal Medicine Endocrinology, Diabetes & Metabolism
DX: E03.8 Other specified hypothyroidism (principal); E06.3 Autoimmune thyroiditis; R73.03 Prediabetes
CPT/HCPCS: 36415; 80069; 83036; 84439; 84443

== ENCOUNTER 2022-09-07 17:06 | Emergency (ER) | payer BC, SELFPAY ==
--- NOTE | 2022-09-07 17:37 | EXP.UTC ---
Discharge Plan Disposition Patient Disposition: Home, Self-Care Condition: Good Prescriptions Prescriptions: New phenazopyridine [Pyridium] 200 mg tablet 200 mg PO Q8H 2 Days Qty: 6 0RF sulfamethoxazole-trimethoprim [Bactrim DS] 800-160 mg Tablet 1 tab PO BID Qty: 14 0RF acyclovir [Zovirax] 5 % cream 1 applic topical 5XDAY 4 Days Qty: 5 1RF No Action levofloxacin 500 MG tablet 500 mg PO DAILY Qty: 7 0RF cyanocobalamin (vitamin B-12) 1,000 MCG tablet 1,000 mcg PO DAILY levothyroxine 75 MCG tablet 75 mcg PO DAILY fluticasone propionate 120 SPR/BOT bottle 2 spr NS DAILY cholecalciferol (vitamin D3) 400 UNIT capsule 1,000 unit PO DAILY psyllium husk (with sugar) 368 GM powder 368 gm PO DAILY Referrals Follow up/Referrals: Jorge Esqueda MD [Primary Care Provider] - See instructions Activity Restrictions/Add. Instructions Additional Instructions/Restrictions: Drink plenty of fluids. Take tylenol or ibuprofen for pain or fever. Take the medications as directed. Follow up with your regular doctor. GO TO THE ER FOR ANY WORSENING SYMPTOMS The pyridium will make your urine turn orange, this is an expected side effect. It will stain your clothes if it comes into contact with them. We will culture the urine. That will tell what bacteria is causing your infection and which antibiotics will treat it best. Sometimes the first antibiotic we prescribe turns out to not work against different bacteria. So, make sure you follow up within 3 days if you are not getting better. Clinical Impressions Clinical Impression: UTI (urinary tract infection), Fever blister Instructions Patient Instructions: Urine Culture, DI for Urinary Tract Infection (UTI), DI for Cold Sores, Phenazopyridine Discharge ED Provider: Ilya Hernandez [facility] General Stated complaint: Possible UTI Time Seen by Provider: 09/07/22 17:37 History of Present Illness Provider Complaint: She states that for the past 2 days she has had dysuria, fatigue, and urinary frequency. Related Data Home Medications Medication Instructions Recorded Confirmed cholecalciferol (vitamin D3) 10 1,000 unit PO DAILY Supplement 07/20/20 12/11/21 mcg (400 unit) capsule cyanocobalamin (vitamin B-12) 1,000 mcg PO DAILY Supplement 07/20/20 12/11/21 1,000 mcg tablet fluticasone propionate 50 2 spr NS DAILY allergies 07/20/20 12/11/21 mcg/actuation nasal spray,suspension levothyroxine 75 mcg tablet 75 mcg PO DAILY thyroid supplement 07/20/20 12/11/21 psyllium husk (with sugar) 3 368 gm PO DAILY gi contract 07/20/20 12/11/21 gram/12 gram oral powder Previous Rx's Medication Instructions Recorded levofloxacin 500 mg tablet 500 mg PO DAILY #7 tabs 12/11/21 acyclovir 5 % topical cream 1 applic topical 5XDAY 4 days #5 09/07/22 (Zovirax) grams phenazopyridine 200 mg tablet 200 mg PO Q8H 2 days #6 tabs 09/07/22 (Pyridium) sulfamethoxazole 800 1 tab PO BID #14 tabs 09/07/22 mg-trimethoprim 160 mg tablet (Bactrim DS) Allergies Allergy/AdvReac Type Severity Reaction Status Date / Time codeine [CODEINE] Allergy Intermediate SEVERE Verified 08/13/20 15:10 NAUSEA AND VOMITING morphine [MORPHINE] Allergy Intermediate SEVERE Verified 08/13/20 15:10 NAUSEA cefaclor [From CECLOR] Allergy Mild Verified 08/13/20 15:10 metronidazole [From FLAGYL] Allergy Unknown Verified 08/13/20 15:10 PFSH PFS Disclaimer: The information contained in this section may have been updated after the patient was seen, as this information can be updated by other users. Social History Smoking Status: Never smoker alcohol intake: never substance use type: denies use current occupational status: other Travel in the last 8 weeks: None household members: spouse housing: house ROS Obtained: Yes All systems reviewed & no add
[2022-09-07 17:40] VITALS: BP 144/80; PULSE 87; RESP 20; TEMP 36.8; O2SAT 100; BMI 28.3
[2022-09-07 17:56] LABS: Apearance,Urine Clear (Clear); Color,Urine Dark Yellow (Yellow)
[2022-09-07 17:57] LABS: Bilirubin,Urine Negative (Negative); Blood, Urine Negative (Negative); Glucose,Urine (UA) Negative (Negative); Ketones,Urine Negative (Negative); Protein,Urine Negative (Negative); Specific Gravity, Urine 1.015 (1.005-1.030); UTC Leukocyte Esterase,Urine Negative (Negative); UTC Nitrate,Urine Positive (Negative); Urobilinogen,Urine 0.2 EU/dl (0.2)
[2022-09-07 18:03] VITALS: BP 144/80; PULSE 87; RESP 20; TEMP 36.8; O2SAT 100
== END 2022-09-07 18:03 | disposition home or self-care (01) ==
PROVIDERS: Emergency Provider Nurse Practitioner Family; PCP Internal Medicine Adolescent Medicine
DX: N39.0 Urinary tract infection, site not specified (principal); B00.1 Herpesviral vesicular dermatitis
CPT/HCPCS: 81003; 87086; 99212; 99214; G0463

== ENCOUNTER 2022-10-17 08:08 | Emergency (ER) | payer BC, SELFPAY ==
[2022-10-17 08:24] VITALS: BP 135/77; PULSE 91; RESP 18; TEMP 36.7; O2SAT 99; BMI 27.4
[2022-10-17 08:31] LABS: Apearance,Urine Clear (Clear); Bilirubin,Urine Negative (Negative); Blood, Urine Negative (Negative); Color,Urine Yellow (Yellow); Glucose,Urine (UA) Negative (Negative); Ketones,Urine Negative (Negative); Protein,Urine Negative (Negative); UTC Leukocyte Esterase,Urine Negative (Negative); UTC Nitrate,Urine Negative (Negative); Urobilinogen,Urine 0.2 EU/dl (0.2)
--- NOTE | 2022-10-17 08:43 | EXP.UTC ---
Discharge Plan Disposition Patient Disposition: Home, Self-Care Condition: Good Prescriptions Prescriptions: New nitrofurantoin monohyd/m-cryst [Macrobid] 100 mg capsule 100 mg PO Q12H 5 Days Qty: 10 0RF Rx Instructions: must administer with a meal/food phenazopyridine [Pyridium] 200 mg tablet 200 mg PO Q8H 2 Days Qty: 6 0RF No Action cyanocobalamin (vitamin B-12) 1,000 MCG tablet 1,000 mcg PO DAILY levothyroxine 75 MCG tablet 75 mcg PO DAILY fluticasone propionate 120 SPR/BOT bottle 2 spr NS DAILY cholecalciferol (vitamin D3) 400 UNIT capsule 1,000 unit PO DAILY omeprazole 40 mg capsule,delayed release(DR/EC) 40 mg PO DAILY Label Comments: TAKE ONE CAPSULE BY MOUTH EVERY DAY estradiol 10 mcg tablet 10 mcg VAGINAL NEEDED PRN (Reason: yeast) Referrals Follow up/Referrals: Carly Diamond APRN [Primary Care Provider] - See instructions Activity Restrictions/Add. Instructions Additional Instructions/Restrictions: *Increase fluids. Water not Soda or Tea *Start antibiotic immediately and be sure to take as ordered for the FULL length of time although you should start to see improvement over the next 48 hours *Pyridium as needed Remember this medication will turn your urine . This is normal but it will stain what ever it gets on *You should not use Pyridium for more than 48 hours. If so , follow up with your primary physician to review urine culture and ensure that antibiotic is adequate for infection *Be SURE to follow up anytime for new or worsening symptoms with your family doctor. AND in 48 hours for urine culture results with your family doctor, if you do not have a doctor then you may call back to the [facility] for urine culture results and further treatment. We do recommend that you choose and establish care with a Primary Care Physician. ?AND follow up with them ?in 10-14 days to repeat UA to ensure infection is resolved and blood no longer present *Be sure to let your PCP know that we sent urine cultures from the [facility] so they can follow up to ensure that you area the on the correct antibiotic Call your doctor office and make appointment for 48 hours (2 days from today) ?to follow up and get the results of your urine culture and further treatment Clinical Impressions Clinical Impression: UTI symptoms Instructions Patient Instructions: DI for Urinary Tract Infection (UTI), Nitrofurantoin Discharge ED Provider: Callie Roman [facility] HPI General Stated complaint: Possible UTI Mode of Arrival: Ambulatory Source of Information: Patient Limitations: No Limitations Time Seen by Provider: 10/17/22 08:43 Description of Symptoms (Recalled from Triage Doc. by RN): possible UTI - frequent urination, burning while urinating, lower back pain HEENT Symptoms (Recalled from RN notes): No Resp Symptoms (Recalled from RN notes): No Skin Symptoms (Recalled from RN notes): No MS Symptoms (Recalled from RN notes): No Functional Status (Recalled from RN notes): n/a History of Present Illness Provider Complaint: Patient states that she feels like she does when she has a UTI States that she is having burning with urination, frequency urgency and achy like pain in her lower back feels like it does when she has a UTI Related Data Home Medications Medication Instructions Recorded Confirmed cholecalciferol (vitamin D3) 10 1,000 unit PO DAILY Supplement 07/20/20 10/17/22 mcg (400 unit) capsule cyanocobalamin (vitamin B-12) 1,000 mcg PO DAILY Supplement 07/20/20 10/17/22 1,000 mcg tablet fluticasone propionate 50 2 spr NS DAILY allergies 07/20/20 10/17/22 mcg/actuation nasal spray,suspension levothyroxine 75 mcg tablet 75 mcg PO DAILY thyroid supplement 07/20/20 10/17/22 estradiol 10 mcg vaginal tablet 10 mcg vaginal NEEDED PRN yeast 10/17/22 10/17/22 omeprazole 40 mg capsule,delayed 40 mg PO DAILY gerd 10/17/22 10/17/22 release Previous Rx's Medication I
[2022-10-17 09:07] VITALS: BP 135/77; PULSE 91; RESP 16; TEMP 36.7; O2SAT 99
== END 2022-10-17 09:08 | disposition home or self-care (01) ==
PROVIDERS: Emergency Provider Nurse Practitioner; PCP Nurse Practitioner Family
DX: R30.0 Dysuria (principal); M54.59 Other low back pain; R35.0 Frequency of micturition; R39.9 Unspecified symptoms and signs involving the genitourinary system; E03.9 Hypothyroidism, unspecified
CPT/HCPCS: 81003; 87086; 99212; 99214; G0463

== ENCOUNTER 2023-04-28 00:38 | Emergency (ER) | payer BC, SELFPAY ==
[2023-04-28 00:40] VITALS: BP 166/90; PULSE 82; RESP 18; TEMP 36.5; O2SAT 97; BMI 29.6
--- NOTE | 2023-04-28 00:42 | PC.NURSE ---
Provider at bedside. Provider to perform dental block.
--- NOTE | 2023-04-28 00:50 | HMH.EDGENADL ---
Discharge Plan Disposition Patient Disposition: Home, Self-Care Condition: Good Prescriptions Prescriptions: New oxycodone 5 mg tablet 5 mg PO Q8H PRN (Reason: pain) Qty: 12 0RF No Action cyanocobalamin (vitamin B-12) 1,000 MCG tablet 1,000 mcg PO DAILY levothyroxine 75 MCG tablet 75 mcg PO DAILY fluticasone propionate 120 SPR/BOT bottle 2 spr NS DAILY cholecalciferol (vitamin D3) 400 UNIT capsule 1,000 unit PO DAILY omeprazole 40 mg capsule,delayed release(DR/EC) 40 mg PO DAILY Patient Comments: TAKE ONE CAPSULE BY MOUTH EVERY DAY estradiol 10 mcg tablet 10 mcg VAGINAL NEEDED PRN (Reason: yeast) nitrofurantoin monohyd/m-cryst [Macrobid] 100 mg capsule 100 mg PO Q12H 5 Days Qty: 10 0RF Rx Instructions: must administer with a meal/food phenazopyridine [Pyridium] 200 mg tablet 200 mg PO Q8H 2 Days Qty: 6 0RF Referrals Follow up/Referrals: Jorge Esqueda MD [Primary Care Provider] - See instructions Activity Restrictions/Add. Instructions Additional Instructions/Restrictions: Continue to do salt water rinses at home. Recommend using [id number] Orajel as needed. Continue to take Tylenol and ibuprofen. Please take oxycodone as needed for severe pain. Please continue take antibiotics as previously prescribed. Recommend following up with dentist as soon as you can. Clinical Impressions Clinical Impression: Dry tooth socket, Pain, dental Discharge ED Provider: Heber Montalvo General Adult HPI General Chief complaint: Dental/Oral Stated complaint: Pain from dry socket Time Seen by Provider: 04/28/23 00:40 Mode of Arrival: Ambulatory Source of Information: Patient Limitations: No Limitations Description of Symptoms (Recalled from ER Triage Doc. by RN): Patient had left upper tooth extracted on Sunday and has been taking antibiotics and tylenol and motrin since. Patient reports increased pain tonight and thinks that she has dry socket . History of Present Illness HPI narrative: 58-year-old female, history of hypothyroidism, presents with worsening pain in her left maxillary incisor socket after she had a dental extraction on Sunday, 2 days ago. She is doing Tylenol and ibuprofen at home without improvement of pain. She is also doing salt water rinses. It is Sunday and she is unable to get back into a dentist until Sunday. She is currently taking antibiotics that are prescribed by the dentist. She reports no fevers or discharge or swelling. Related Data Home Medications Medication Instructions Recorded Confirmed cholecalciferol (vitamin D3) 10 1,000 unit PO DAILY Supplement 07/20/20 10/17/22 mcg (400 unit) capsule cyanocobalamin (vitamin B-12) 1,000 mcg PO DAILY Supplement 07/20/20 10/17/22 1,000 mcg tablet fluticasone propionate 50 2 spr NS DAILY allergies 07/20/20 10/17/22 mcg/actuation nasal spray,suspension levothyroxine 75 mcg tablet 75 mcg PO DAILY thyroid supplement 07/20/20 10/17/22 estradiol 10 mcg vaginal tablet 10 mcg vaginal NEEDED PRN yeast 10/17/22 10/17/22 omeprazole 40 mg capsule,delayed 40 mg PO DAILY gerd 10/17/22 10/17/22 release Previous Rx's Medication Instructions Recorded nitrofurantoin 100 mg PO Q12H 5 days #10 caps 10/17/22 monohydrate/macrocrystals 100 mg capsule (Macrobid) phenazopyridine 200 mg tablet 200 mg PO Q8H pain 2 days #6 tabs 10/17/22 (Pyridium) oxycodone 5 mg tablet 5 mg PO Q8H PRN pain #12 tabs 04/28/23 Allergies Allergy/AdvReac Type Severity Reaction Status Date / Time codeine [CODEINE] Allergy Intermediate SEVERE Verified 10/17/22 08:17 NAUSEA AND VOMITING morphine [MORPHINE] Allergy Intermediate SEVERE Verified 10/17/22 08:17 NAUSEA cefaclor [From CECLOR] Allergy Mild Verified 10/17/22 08:17 metronidazole [From FLAGYL] Allergy Unknown Verified 10/17/22 08:17 [facility] Disclaimer: The information contained in this section
[2023-04-28 00:57] VITALS: BP 166/90; PULSE 82; RESP 18; TEMP 36.5; O2SAT 98
== END 2023-04-28 00:58 | disposition home or self-care (01) ==
LOC: ER 01:08
PROVIDERS: Emergency Provider Emergency Medicine; PCP Internal Medicine Adolescent Medicine
DX: M27.3 Alveolitis of jaws (principal); K08.89 Other specified disorders of teeth and supporting structures; E03.9 Hypothyroidism, unspecified
CPT/HCPCS: 99283

== ENCOUNTER → 2023-06-15 08:05 | Outpatient (CLI) | payer BC, SELFPAY ==
[2023-06-15 09:48] LABS: Hemoglobin A1C 5.8 % (4.0-6.0)
[2023-06-15 10:00] LABS: Chloride 102 mmol/L (98-107); Sodium 140 mmol/L (136-145)
[2023-06-15 10:01] LABS: Albumin Level 4.5 g/dl (3.5-5.0); Potassium 4.4 mmoL/L (3.5-5.1)
[2023-06-15 10:03] LABS: Blood Urea Nitrogen 13 mg/dl (7-17); Estimated Glomerular Filt Rate 86 ml/min (>60); GFR (African American) 104 ML/MIN (>60)
[2023-06-15 10:04] LABS: Anion Gap 12.4 mEq/L (5-15); Calcium 8.8 mg/dl (8.4-10.2); Carbon Dioxide 30 mmol/L (22.0-30.0); Glucose 111 mg/dl (74-100); Phosphorous 4.1 mg/dl (2.5-4.5)
[2023-06-15 10:22] LABS: Free T4 (Free Thyroxine) 1.26 ng/dl (0.78-2.19)
[2023-06-15 10:36] LABS: Thyroid Stimulating Hormone 0.23 uIU/mL (0.465-4.68)
== END ==
PROVIDERS: PCP Internal Medicine Adolescent Medicine; Visit Provider Internal Medicine Endocrinology, Diabetes & Metabolism
DX: R73.03 Prediabetes (principal); E06.3 Autoimmune thyroiditis; E03.8 Other specified hypothyroidism
CPT/HCPCS: 80069; 83036; 84439; 84443

== ENCOUNTER 2023-07-03 13:32 | Emergency (ER) | payer BC, SELFPAY ==
[2023-07-03 13:40] VITALS: BP 152/93; PULSE 89; RESP 18; TEMP 36.5; O2SAT 100; BMI 28.8
--- NOTE | 2023-07-03 13:58 | EXP.UTC ---
Discharge Plan Disposition Patient Disposition: Home, Self-Care Condition: Good Prescriptions Prescriptions: New phenazopyridine [Pyridium] 200 mg tablet 200 mg PO Q8H 2 Days Qty: 6 0RF nitrofurantoin monohyd/m-cryst [Macrobid] 100 mg Capsule 100 mg PO BID Qty: 10 0RF Rx Instructions: must administer with a meal/food No Action cyanocobalamin (vitamin B-12) 1,000 MCG tablet 1,000 mcg PO DAILY levothyroxine 75 MCG tablet 75 mcg PO DAILY fluticasone propionate 120 SPR/BOT bottle 2 spr NS DAILY cholecalciferol (vitamin D3) 400 UNIT capsule 1,000 unit PO DAILY omeprazole 40 mg capsule,delayed release(DR/EC) 40 mg PO DAILY Patient Comments: TAKE ONE CAPSULE BY MOUTH EVERY DAY Referrals Follow up/Referrals: Jorge Esqueda MD [Primary Care Provider] - See instructions Activity Restrictions/Add. Instructions Additional Instructions/Restrictions: Drink plenty of fluids. Take tylenol or ibuprofen for pain or fever. Take the medications as directed. Follow up with your regular doctor. GO TO THE ER FOR ANY WORSENING SYMPTOMS The pyridium will make your urine turn orange, this is an expected side effect. It will stain your clothes if it comes into contact with them. We will culture the urine. That will tell what bacteria is causing your infection and which antibiotics will treat it best. Sometimes the first antibiotic we prescribe turns out to not work against different bacteria. So, make sure you follow up within 3 days if you are not getting better. Clinical Impressions Clinical Impression: UTI (urinary tract infection) Instructions Patient Instructions: Urine Culture, DI for Urinary Tract Infection (UTI), Phenazopyridine Discharge ED Provider: Ilya Hernandez [facility] General Stated complaint: uti pain Mode of Arrival: Ambulatory Source of Information: Patient Limitations: No Limitations Time Seen by Provider: 07/03/23 13:58 Description of Symptoms (Recalled from Triage Doc. by RN): Pt stated that she has frequent urination, bilateral flank pain, and burning with urination. HEENT Symptoms (Recalled from RN notes): No Resp Symptoms (Recalled from RN notes): No Skin Symptoms (Recalled from RN notes): No MS Symptoms (Recalled from RN notes): No Functional Status (Recalled from RN notes): n/a Related Data Home Medications Medication Instructions Recorded Confirmed cholecalciferol (vitamin D3) 10 1,000 unit PO DAILY Supplement 07/20/20 07/03/23 mcg (400 unit) capsule cyanocobalamin (vitamin B-12) 1,000 mcg PO DAILY Supplement 07/20/20 07/03/23 1,000 mcg tablet fluticasone propionate 50 2 spr NS DAILY allergies 07/20/20 07/03/23 mcg/actuation nasal spray,suspension levothyroxine 75 mcg tablet 75 mcg PO DAILY thyroid supplement 07/20/20 07/03/23 omeprazole 40 mg capsule,delayed 40 mg PO DAILY gerd 10/17/22 07/03/23 release Previous Rx's Medication Instructions Recorded nitrofurantoin 100 mg PO BID #10 caps 07/03/23 monohydrate/macrocrystals 100 mg capsule (Macrobid) phenazopyridine 200 mg tablet 200 mg PO Q8H 2 days #6 tabs 07/03/23 (Pyridium) Allergies Allergy/AdvReac Type Severity Reaction Status Date / Time codeine [CODEINE] Allergy Intermediate SEVERE Verified 07/03/23 13:51 NAUSEA AND VOMITING morphine [MORPHINE] Allergy Intermediate SEVERE Verified 07/03/23 13:51 NAUSEA cefaclor [From CECLOR] Allergy Mild Verified 07/03/23 13:51 metronidazole [From FLAGYL] Allergy Unknown Verified 07/03/23 13:51 Worker's Comp Is this a Worker's Comp case?: No [facility] Disclaimer: The information contained in this section may have been updated after the patient was seen, as this information can be updated by other users. Medical History (Updated 07/03/23 @ 14:15 by Ilya Hernandez APRN) Hypothyroid Urinary tract infection Surgical History History of cholecystectomy History of hysterectomy Previous back surgery Family History Other No significant family history Social History Smoking Status: Never smoker alcohol intake: never substance use type: denies use current occupational status: employed Travel in the last 8 weeks: None household members: spouse housing: house ROS Obtained: Yes All systems reviewed & no additional complaints except as documented Constitutional Constitutional: Reports system reviewed and no additional complaints, except as documented, Denies chills and Denies fever(s) Eyes Eyes: Denies eye discharge ENT Ears, Nose, Mouth, and Throat: Denies dysphagia, Denies sore throat and Denies throat swelling Cardiovascular Cardiovascular: Denies chest pain and Denies dyspnea Respiratory Respiratory: Denies chest congestion, Denies cough and Denies dyspnea Gastrointestinal Gastrointestingal: Denies abdominal pain, constipation, diarrhea, dysphagia, nausea or vomiting Genitourinary Female Genitourinary: Reports as per HPI, Reports dysuria, Reports urinary frequency, Denies urinary incontinence, Reports urinary hesitancy and Reports urinary urgency Musculoskeletal Musculoskeletal: Denies arthralgias and Reports back pain Integumentary/Breasts Skin/Breast: Denies rash Neurologic Neurologic: Denies paresthesias Allergic/Immunologic Allergic/Immunologic: Denies throat swelling Physical Exam General General appearance: alert and in no apparent distress Head Head exam: atraumatic and normocephalic Eye Eye exam: Present normal appearance, PERRL and EOMI ENT ENT exam: Present normal exam, mucous membranes moist, TM's normal bilaterally and normal external ear exam Neck Neck exam: Present normal inspection, full ROM and trachea midline; Absent tenderness, meningismus or lymphadenopathy Chest Chest inspection: Present normal inspection and symmetric chest wall rise; Absent tenderness Respiratory Respiratory exam: Present normal lung sounds bilaterally; Absent respiratory distress, wheezes or stridor Cardiovascular Cardiovascular exam: Present regular rate, normal rhythm and normal heart sounds Abdominal Exam Abdominal exam: Present soft and normal bowel sounds; Absent distention, tenderness, guarding, rebound, rigidity, incision, psoas sign, obturator sign, heel tap sign, Gallo's sign, Rovsing's sign or tenderness at McBurney's Point Extremities Exam Extremities exam: Present normal inspection, full ROM and normal capillary refill; Absent tenderness, edema, joint swelling, calf tenderness or cyanosis Back Exam Back exam: Present normal inspection and full ROM; Absent tenderness, CVA tenderness (R) or CVA tenderness (L) Neurological Exam Neurological exam: Present alert, oriented X3 and normal gait Psychiatric Psychiatric exam: Present normal affect and normal mood Skin Skin exam: Present warm, dry, intact and normal color Lymphatic Lymphatic Findings: no adenopathy Medical Decision Making Medical Records Medical records reviewed: No I reviewed the patient's medical records. Lan Inquiry Pt receiving controlled substance: No Vital Signs: 07/03/23 13:40 Temperature 97.7 F Temperature Source Oral Pulse Rate [Right Radial] 89 Respiratory Rate 18 Blood Pressure [Right Arm] 152/93 H Blood Pressure Mean [Right Arm] 112 Blood Pressure Source [Right Arm] Automatic Cuff Blood Pressure Position [Right Arm] Sitting 02 Sat by Pulse Oximetry 100 Oxygen Delivery Method Room Air Lab Data Lab results reviewed: Yes I reviewed the patient's lab results.
[2023-07-03 14:07] LABS: Apearance,Urine Clear (Clear); Bilirubin,Urine Negative (Negative); Blood, Urine Trace (Negative); Color,Urine Yellow (Yellow); Glucose,Urine (UA) Negative (Negative); Ketones,Urine Negative (Negative); Protein,Urine Negative (Negative); Specific Gravity, Urine 1.015 (1.005-1.030); UTC Leukocyte Esterase,Urine Negative (Negative); UTC Nitrate,Urine Negative (Negative); Urobilinogen,Urine 0.2 EU/dl (0.2)
[2023-07-03 14:27] VITALS: BP 152/93; PULSE 89; RESP 18; TEMP 36.5; O2SAT 100
== END 2023-07-03 14:27 | disposition home or self-care (01) ==
PROVIDERS: Emergency Provider Nurse Practitioner Family; PCP Internal Medicine Adolescent Medicine
DX: N39.0 Urinary tract infection, site not specified (principal); B96.29 Other Escherichia coli [E. coli] as the cause of diseases classified elsewhere; R10.30 Lower abdominal pain, unspecified; M54.59 Other low back pain; E03.9 Hypothyroidism, unspecified
CPT/HCPCS: 81003; 87086; 99212; 99214; G0463

== ENCOUNTER 2023-09-03 16:39 | Outpatient (CLI) | payer BC, SELFPAY ==
[2023-09-03 16:24] LABS: Microscopic, Urine URINE MICROSCOPIC (MICROSCOPIC)
[2023-09-03 16:46] LABS: Appearance,Urine CLEAR (Clear); Bilirubin,Urine Negative (Negative); Blood, Urine Negative (Negative); Color,Urine YELLOW (Yellow); Glucose,Urine (UA) Negative (Negative); Ketones,Urine Negative (Negative); Leukocyte Esterase,Urine Negative (Negative); Nitrate,Urine Negative (Negative); Protein,Urine Negative (Negative); Urobilinogen,Urine 0.2 EU/dl (0.2)
[2023-09-03 17:35] LABS: Bacteria,Urine Trace /lpf
[2023-09-07 00:04] LABS: Atopobium vaginae Low - 0 Score (.); BVAB2 Low - 0 Score (.); Candida albicans NAA Negative (Negative); Candida glabrata Negative (Negative); Chlamydia Trachomatis NAA Negative (Negative); HSV 1 NAA Negative (Negative); HSV 2 NAA Negative (Negative); Megasphaera 1 Low - 0 Score (.); Neisseria gonorrhoeae NAA Negative (Negative); Trich vag NAA Negative (Negative)
[2023-09-16] LABS: Mycoplasma genitalium NAA Negative (Negative)
== END 2023-09-03 23:59 ==
LOC: LAB.DROPOF 16:39
PROVIDERS: PCP Urology; Visit Provider Urology
DX: N95.2 Postmenopausal atrophic vaginitis (principal); N20.0 Calculus of kidney; E03.8 Other specified hypothyroidism; E06.3 Autoimmune thyroiditis; Z79.899 Other long term (current) drug therapy
CPT/HCPCS: 81001; 87491; 87529; 87563; 87591; 87661; 87798; 87801

== ENCOUNTER 2023-09-10 13:50 | Outpatient (CLI) | payer BC, SELFPAY ==
--- NOTE | 2023-09-10 13:50 | XR_ITS ---
FINAL REPORT CLINICAL HISTORY: stones COMPARISON: None FINDINGS: A single supine view the abdomen was obtained. The bowel gas pattern is nonspecific but nonobstructive. A moderate amount of stool is present. There is a 10 mm right renal stone present. Postoperative changes are present in the right upper quadrant. Osseous structures are within normal limits. IMPRESSION: Nonspecific but nonobstructive bowel gas pattern with a moderate stool burden. 10 mm right renal stone is present. Reviewed, Interpreted and Dictated by Nicolas Hawley III, MD Transcribed by Teodora Marie Authenticated and [facility]
--- NOTE | 2023-09-10 13:50 | US_ITS ---
FINAL REPORT CLINICAL HISTORY: .hx of renal stones-- uti COMPARISON: None FINDINGS: RENAL ULTRASOUND: The right kidney measures 9.8 cm in length. There is a 12 mm stone present in the right renal collecting system without evidence of hydronephrosis. No other abnormal foci are identified. There is mild cortical thinning present. The left kidney measures 10.8 cm in appearance, and there is no evidence of stone, hydronephrosis, or other abnormal echogenicities. There is a 2.4 cm left renal cyst present. There is mild cortical thinning present. IMPRESSION: 12 mm stone present in the right renal collecting system without evidence of hydronephrosis. Bilateral mild cortical thinning. 2.4 cm left renal cyst. Reviewed, Interpreted and Dictated by Nicolas Hawley III, MD Transcribed by Teodora Marie Authenticated and [facility]
== END 2023-09-10 23:59 ==
LOC: RAD 13:50
PROVIDERS: PCP Internal Medicine Adolescent Medicine; Visit Provider Urology
DX: N20.0 Calculus of kidney (principal); E03.8 Other specified hypothyroidism; E06.3 Autoimmune thyroiditis
CPT/HCPCS: 74018; 76770

== ENCOUNTER 2023-12-07 08:20 | Outpatient (CLI) | payer BC, SELFPAY ==
[2023-12-07 09:31] LABS: Basophils # 0.1 K/mm3 (0-0.2); Basophils % 0.5 % (0.1-2.0); Eosinophils # 0.1 K/mm3 (0.0-0.4); Eosinophils % 0.5 % (0.1-12.0); Hemoglobin 14.8 g/dL (12.2-16.2); Lymphocytes # 3.4 K/mm3 (0.7-4.5); Lymphocytes % 29.8 % (10-50); Mean Corpuscular HGB Conc 31.4 g/dL (31.8-35.4); Mean Corpuscular Hemoglobin 29.5 pg (27.0-31.2); Mean Corpuscular Volume 93.7 fl (81-99); Mean Platelet Volume 8.7 fl (7.4-10.4); Monocytes # 0.5 K/mm3 (0.1-1.0); Monocytes % 4.3 % (1.7-9.3); Neutrophils # 7.5 K/mm3 (1.8-7.8); Neutrophils % 64.9 % (37.0-80.0); Platelet Count 330 K/mm3 (142-424); Red Blood Count 5.02 M/mm3 (4.20-5.40); Red Cell Distribution Width 13.2 % (11.5-17.5); White Blood Count 11.5 K/mm3 (4.8-10.8)
[2023-12-07 10:03] LABS: Hemoglobin A1C 6.1 % (4.0-6.0)
[2023-12-07 10:10] LABS: Alanine Aminotransferase 18 U/L (12-78); Albumin Level 4.5 g/dl (3.5-5.0); Albumin/Globulin Ratio 1.6 (1.1-1.8); Alkaline Phosphatase 61 U/L (38-126); Anion Gap 13.3 mEq/L (5-15); Aspartate Amino Transferase 25 U/L (14-36); Bilirubin,Total 0.6 mg/dl (0.2-1.3); Blood Urea Nitrogen 17 mg/dl (7-17); Calcium 9.9 mg/dl (8.4-10.2); Carbon Dioxide 31 mmol/L (22.0-30.0); Chloride 101 mmol/L (98-107); Chol/HDL Ratio 2.3 (1-3.5); Cholesterol 235 mg/dl (140-200); Estimated Glomerular Filt Rate 103 ml/min (>60); GFR (African American) 125 ML/MIN (>60); Globulin 2.8 g/dL (1.3-3.2); Glucose 99 mg/dl (74-100); HDL Cholesterol 102 mg/dl (40-60); Potassium 4.3 mmoL/L (3.5-5.1); Sodium 141 mmol/L (136-145); Total Protein,Serum 7.3 g/dl (6.3-8.2); Triglycerides 102 mg/dl (30-150); VLDL Cholesterol 20 mg/dL (0-40)
[2023-12-07 10:20] LABS: Direct LDL Cholesterol 89.57 mg/dL (100-129)
[2023-12-07 10:26] LABS: Free T4 (Free Thyroxine) 1.14 ng/dl (0.78-2.19)
[2023-12-07 10:40] LABS: Thyroid Stimulating Hormone 0.87 uIU/mL (0.465-4.68)
== END 2023-12-07 23:59 | disposition home or self-care (01) ==
LOC: LAB 08:20
PROVIDERS: PCP Internal Medicine Adolescent Medicine; Visit Provider Nurse Practitioner Family
DX: E03.8 Other specified hypothyroidism (principal); E06.3 Autoimmune thyroiditis
CPT/HCPCS: 36415; 80050; 80053; 80061; 83036; 84439; 84443; 85025

== ENCOUNTER 2024-01-31 13:26 | Outpatient (CLI) | payer BC, SELFPAY ==
--- NOTE | 2024-01-31 | MR_ITS ---
FINAL REPORT CLINICAL HISTORY: NECK PAIN COMPARISON: None FINDINGS: Multiplanar MR imaging of the cervical spine was performed without contrast. On the sagittal T2-weighted images, disc degeneration is seen throughout. There is mild retrolisthesis of C5 on C6. The vertebral alignment is normal. The cervical spinal cord has an unremarkable appearance without evidence of mass, edema or syrinx. The cervicomedullary junction is normal. C2-3: Small central disc protrusion. There is no significant canal stenosis or neural foraminal narrowing. C3-4: Small central disc protrusion. There is no significant canal stenosis or neural foraminal narrowing. C4-5: There is no significant canal stenosis or neural foraminal narrowing. C5-6: Disc osteophyte complex. Moderate right and severe left neural foraminal narrowing. Mild central canal stenosis with AP diameter of the thecal sac of 8 mm. C6-7: Disc osteophyte complex. Mild bilateral neural foraminal narrowing. C7-T1: There is no significant canal stenosis or neural foraminal narrowing. IMPRESSION: Multilevel degenerative disc disease as above. Disc protrusions at C2-3 and C3-4. Mild central canal stenosis at C5-6. Reviewed, Interpreted and Dictated by Nicolas Hawley III, MD Transcribed by Zoë Alexis Authenticated and [facility]
== END 2024-01-31 23:59 | disposition home or self-care (01) ==
LOC: RAD 13:27
PROVIDERS: PCP Internal Medicine Adolescent Medicine; Visit Provider Internal Medicine Adolescent Medicine
DX: M54.2 Cervicalgia (principal)
CPT/HCPCS: 72141

== ENCOUNTER 2024-03-20 09:46 | Outpatient (POV) | payer BC, MEDICARE, SELFPAY ==
[2024-03-20 10:12] VITALS: BP 129/85; PULSE 85; RESP 18; O2SAT 98; BMI 27.8
--- NOTE | 2024-03-20 10:23 | EXP.PAIN.SOA ---
[facility] Disclaimer: The information contained in this section may have been updated after the patient was seen, as this information can be updated by other users. Medical History Hypothyroid Urinary tract infection Surgical History Previous back surgery History of cholecystectomy History of hysterectomy Family History Other No significant family history Social History Smoking Status: Never smoker alcohol intake: never substance use type: denies use current occupational status: employed Travel in the last 8 weeks: None household members: spouse housing: house PM Subjective & Objective Subjective Subjective:: Patient is a pleasant 58-year-old female who presents today for follow-up. Today she rates her pain at 3 out of 10 however does state the pain will get much worse as the day goes on to at least a 5 or more. She states her pain is all in her neck with radiating symptoms into her entire right extremity and some into her left shoulder. Patient denies any specific trauma or injury but states that her pain did start to get more severe the last 3 months. Patient states that she feels like the neck pain has been going on for years. Patient has had a recent MRI and did see Dr. Linder for possible evaluation of surgery. He did send her to physical therapy which she is doing and it is helping some. Patient states that this is a constant aching sensation with numbness and tingling that goes down her entire right extremity and starting to go towards her left shoulder. She states the pain does get more intense as it goes down the arm. Patient does state the pain interferes with her ability perform activities of daily living such as cooking and cleaning. Patient denies any prior neck surgery or injection history at this location. Patient states that she has tried dry needling for her neck and it was very painful and could not tolerate it for prolonged periods. Patient does state that she has had prior lumbar surgery back in 1997 and has had some injections for her back with only minimal relief. Patient has also been to the chiropractor in the past. Patient has tried and failed conservative therapy including ibuprofen, Tylenol, gabapentin, heat and ice and topicals. Patient does try and stay active and do exercise and stretching at home. Patient does state that she does not do well with overall pain medicines. Her Lan has been reviewed and is appropriate. Review of Systems: General: No recent weight changes, no fever, no sleep disturbances Respiratory: No cough, no shortness of air, no recurring pulmonary infections Cardiovascular/peripheral vascular: No chest pain, no palpitations, no edema, no shortness of breath Gastrointestinal: No new onset incontinence, normal bowel movements reported Genitourinary: No new onset incontinence Musculoskeletal: Neck pain, left shoulder pain, right arm numbness tingling Psychiatric: [Normal mood/affect] Neurological: [Denies weakness in extremities], [denies balance issues] Pain at rest (0-10 scale): 5 Objective Objective:: Physical Exam: General: Alert and oriented x3, no acute distress, pleasant and cooperative Lungs: Respirations even and unlabored, symmetrical chest expansion Eyes: PERRL Musculoskeletal: Flexion and extension of cervical [spine] somewhat guarded secondary to pain, [antalgic gait noted] positive Spurling's test Neurological: Speech clear, no gross sensory deficit FINDINGS: Multiplanar MR imaging of the cervical spine was performed without contrast. On the sagittal T2-weighted images, disc degeneration is seen throughout. There is mild retrolisthesis of C5 on C6. The vertebral alignment is normal. The cervical spinal cord has an unremarkable appearance without evidence of mass, edema or syrinx. The cervicomedullary junction is normal. C2-3: Small central disc protrusion. There is no significant canal stenosis or neural foraminal narrowing. C3-4: Small central disc protrusion. There is no significant canal stenosis or neural foraminal narrowing. C4-5: There is no significant canal stenosis or neural foraminal narrowing. C5-6: Disc osteophyte complex. Moderate right and severe left neural foraminal narrowing. Mild central canal stenosis with AP diameter of the thecal sac of 8 mm. C6-7: Disc osteophyte complex. Mild bilateral neural foraminal narrowing. C7-T1: There is no significant canal stenosis or neural foraminal narrowing. IMPRESSION: Multilevel degenerative disc disease as above. Disc protrusions at C2-3 and C3-4. Mild central canal stenosis at C5-6. Reviewed, Interpreted and Dictated by Nicolas Hawley III, MD Transcribed by Zoë Alexis Authenticated and . [facility] Has patient had previous pain injection?: No Conservative treatment options previously tried: Home exercise plan Length of treatment: Longer than 6 weeks and Physical Therapy Length of treatment: Ongoing Meds Home Medications and Allergies Home Medications ?Medication ?Instructions ?Recorded ?Confirmed ?Type cholecalciferol (vitamin D3) 10 1,000 unit PO DAILY Supplement 07/20/20 09/17/23 History mcg (400 unit) capsule cyanocobalamin (vitamin B-12) 1,000 mcg PO DAILY Supplement 07/20/20 09/17/23 History 1,000 mcg tablet fluticasone propionate 50 2 spr intranasal DAILY allergies 07/20/20 09/17/23 History mcg/actuation nasal spray,suspension levothyroxine 75 mcg tablet 75 mcg PO DAILY thyroid supplement 07/20/20 09/17/23 History omeprazole 40 mg capsule,delayed 40 mg PO DAILY gerd 10/17/22 09/17/23 History release phenazopyridine 200 mg tablet 200 mg PO Q8H 2 days #6 tabs 07/03/23 09/17/23 Rx (Pyridium) estradiol 0.01% (0.1 mg/gram) See Rx Instructions vaginal 09/17/23 09/17/23 Rx vaginal cream .COMPLEX #42.5 grams nitrofurantoin macrocrystal 100 mg 100 mg PO HS #30 caps 09/17/23 09/17/23 Rx capsule (Macrodantin) prasterone (dhea) 6.5 mg vaginal 6.5 mg vaginal HS #28 ea 09/17/23 09/17/23 Rx insert (Intrarosa) New Prescriptions to Start Prescriptions: Allergies Allergy/AdvReac Type Severity Reaction Status Date / Time codeine [CODEINE] Allergy Intermediate SEVERE Verified 09/17/23 10:12 NAUSEA AND VOMITING morphine [MORPHINE] Allergy Intermediate SEVERE Verified 09/17/23 10:12 NAUSEA cefaclor [From CECLOR] Allergy Mild Verified 09/17/23 10:12 metronidazole [From FLAGYL] Allergy Unknown Verified 09/17/23 10:12 Assessment and Plan *Assessment and plan (1) Degenerative disc disease, cervical: Status: Acute Category: Medical Code(s): M50.30 - Other cervical disc degeneration, unspecified cervical region (2) Cervical radiculopathy: Status: Acute Category: Medical Code(s): M54.12 - Radiculopathy, cervical region (3) Cervical spinal stenosis: Status: Acute Category: Medical Code(s): M48.02 - Spinal stenosis, cervical region Plan Patient is experiencing significant pain throughout her neck with limited range of motion and a positive Spurling's test. Patient does have numbness and tingling down her entire right extremity to her fingers. I did discuss with the patient due to her symptoms and MRI that I do believe she would benefit from a cervical epidural steroid injection. Risk and benefits were discussed with patient and she would like to proceed forward with this plan of care. Patient is not on any blood thinners. Patient has tried and failed conservative therapy including continued at home stretching exercise for longer than 6 weeks and ongoing physical therapy. Patient will be ordered a compounded cream. Patient will be scheduled for a JACQUI C5-C6 under fluoroscopy. Patient has been instructed to contact the clinic with any concerns before the next appointment. Dr. Shepherd has reviewed this note and agrees with this plan of care. This note was dictated using voice recognition software and make contain errors or omissions. All injections are used with Lidocaine or Bupivacaine and Depo Medrol.
== END 2024-03-20 23:59 | disposition home or self-care (01) ==
LOC: SC.PAIN 09:49
PROVIDERS: PCP Internal Medicine Adolescent Medicine; Visit Provider Nurse Practitioner Family
DX: M50.10 Cervical disc disorder with radiculopathy, unspecified cervical region (principal); M48.02 Spinal stenosis, cervical region; Z73.89 Other problems related to life management difficulty
CPT/HCPCS: 99212; G0463

== ENCOUNTER 2024-03-25 09:00 | Outpatient (RCR) | payer BC, SELFPAY | END 2024-03-25 23:59 | disposition home or self-care (01) | LOC: PT 09:00 | PROVIDERS: Visit Provider Neurological Surgery | DX: M54.12 Radiculopathy, cervical region (principal) | CPT/HCPCS: 20560; 97012; 97014; 97035; 97110; 97163; G0283 ==

== ENCOUNTER 2024-04-08 08:59 | Day surgery (SDC) | payer BC, SELFPAY ==
[2024-04-08 09:12] VITALS: BP 135/72; PULSE 88; RESP 16; TEMP 36.6; O2SAT 98; BMI 28.0
[2024-04-08] MEDS: methylPREDNISolone ACETATE 80MG/ML VIAL 80 MG (09:48)
[2024-04-08 09:49] VITALS: BP 131/69; PULSE 89; RESP 18; O2SAT 97
[2024-04-08 09:50] VITALS: BP 131/69; PULSE 89; RESP 18; O2SAT 97
[2024-04-08] MEDS: IOPAMIDOL-200 (41%);10ML VIAL 10 ML IV (09:55)
--- NOTE | 2024-04-08 09:55 | P.PCN_ITS ---
Procedure Date: 04/08/24 Time: 09:45 Anesthesiologist:: Tre Amin CRNA Complications:: None Pre-procedure Diagnosis:: Degenerative disc cervical spine multiple levels. Cervical radiculopathy. Cervical disc bulge multilevel. Post-procedure Diagnosis:: Same. Indications for Procedure:: Patient is a very pleasant 59-year-old female who comes our clinic today for cervical epidural steroid injection. She reports posterior cervical neck pain as well as bilateral arm radicular symptoms she rates her pain 7/10. She describes his posterior cervical neck pain as constant, dull, aching. Procedure Details:: Procedure:Cervical epidural steroid injection Informed consent was obtained and the risks and benefits of the procedure were explained to the patient. The patient was taken to the procedure room and noninvasive monitors placed, including noninvasive blood pressure cuff and pulse oximeter. The neck was prepped using Chloraprep as a cleansing solution. The C6- C7 interspace was viewed using fluroscopy. The skin and subcutaneous tissues were anesthetized using lidocaine 1.5% and a 25-gauge needle. After this an 18- gauge Touhy epidural needle was placed into the C6-C7 interspace under fluroscopy guidance and advanced using loss of resistance to air until the epidural space was encountered. After confirmation of needle placement in the epidural space using contrast dye, a solution containing normal saline, 2 mL and Depo-Medrol 80 mg was incrementally injected into the cervical epidural space.~ The patient tolerated the procedure well with no complications. The patient was observed in the Pain Clinic and then discharged home neurologically intact. Plan and Disposition:: Patient was discharged without incident.
[2024-04-08 10:02] VITALS: BP 130/89; PULSE 82; RESP 16; O2SAT 96
== END 2024-04-08 10:02 | disposition home or self-care (01) ==
PROVIDERS: PCP Internal Medicine Adolescent Medicine; Visit Provider Nurse Anesthetist, Certified Registered
DX: M50.30 Other cervical disc degeneration, unspecified cervical region (principal); M54.12 Radiculopathy, cervical region
CPT/HCPCS: 62321; J1010; Q9966

== ENCOUNTER 2024-04-24 08:23 | Outpatient (POV) | payer BC, SELFPAY ==
[2024-04-24 08:30] VITALS: BP 124/65; PULSE 83; RESP 18; O2SAT 97; BMI 28.0
--- NOTE | 2024-04-24 09:02 | A.OFFVIS_ITS ---
[facility] Disclaimer: The information contained in this section may have been updated after the patient was seen, as this information can be updated by other users. Medical History Hypothyroid Urinary tract infection Surgical History Previous back surgery History of cholecystectomy History of hysterectomy Family History Other No significant family history Social History Smoking Status: Never smoker alcohol intake: never substance use type: denies use current occupational status: employed Travel in the last 8 weeks: None household members: spouse housing: house PM Subjective & Objective Subjective Subjective:: Patient is a pleasant 59-year-old female who presents today for follow-up of cervical epidural of C6-C7 on 04/08/2024. She does right at least 80% improvement following this injection and rates her pain today a 4 out of 10. She does state that she has not had any new injuries or changes however today is a particularly worse today with pain radiating from her right shoulder and down her arm. Patient does state occasionally she will have increased problems with range of motion of this joint. Patient is scheduled to see Dr. Linder for fol low-up next . Her Lan has been reviewed and is appropriate. Review of Systems: General: No recent weight changes, no fever, no sleep disturbances Respiratory: No cough, no shortness of air, no recurring pulmonary infections Cardiovascular/peripheral vascular: No chest pain, no palpitations, no edema, no shortness of breath Gastrointestinal: No new onset incontinence, normal bowel movements reported Genitourinary: No new onset incontinence Musculoskeletal: Right shoulder pain, right arm pain Psychiatric: [Normal mood/affect] Neurological: [Denies weakness in extremities], [denies balance issues] Pain at rest (0-10 scale): 4 Objective Objective:: Physical Exam: General: Alert and oriented x3, no acute distress, pleasant and cooperative Lungs: Respirations even and unlabored, symmetrical chest expansion Eyes: PERRL Musculoskeletal: Flexion and extension of right shoulder somewhat guarded secondary to pain Neurological: Speech clear, no gross sensory deficit Has patient had previous pain injection?: Yes Percent improvement in pain since last injection: 80% Conservative treatment options previously tried: Home exercise plan Length of treatment: Longer than 12 weeks Meds Home Medications and Allergies Home Medications ?Medication ?Instructions ?Recorded ?Confirmed ?Type cholecalciferol (vitamin D3) 10 1,000 unit PO DAILY Supplement 07/20/20 04/08/24 History mcg (400 unit) capsule cyanocobalamin (vitamin B-12) 1,000 mcg PO DAILY Supplement 07/20/20 04/08/24 History 1,000 mcg tablet fluticasone propionate 50 2 spr intranasal DAILY allergies 07/20/20 04/08/24 History mcg/actuation nasal spray,suspension levothyroxine 75 mcg tablet 75 mcg PO DAILY thyroid supplement 07/20/20 04/08/24 History omeprazole 40 mg capsule,delayed 40 mg PO DAILY gerd 10/17/22 04/08/24 History release phenazopyridine 200 mg tablet 200 mg PO Q8H 2 days #6 tabs 07/03/23 04/08/24 Rx (Pyridium) estradiol 0.01% (0.1 mg/gram) See Rx Instructions vaginal 09/17/23 04/08/24 Rx vaginal cream .COMPLEX #42.5 grams nitrofurantoin macrocrystal 100 mg 100 mg PO HS #30 caps 09/17/23 04/08/24 Rx capsule (Macrodantin) prasterone (dhea) 6.5 mg vaginal 6.5 mg vaginal HS #28 ea 09/17/23 04/08/24 Rx insert (Intrarosa) New Prescriptions to Start Prescriptions: Allergies Allergy/AdvReac Type Severity Reaction Status Date / Time codeine [CODEINE] Allergy Intermediate SEVERE Verified 09/17/23 10:12 NAUSEA AND VOMITING morphine [MORPHINE] Allergy Intermediate SEVERE Verified 09/17/23 10:12 NAUSEA cefaclor [From CECLOR] Allergy Mild Verified 09/17/23 10:12 metronidazole [From FLAGYL] Allergy Unknown Verified 09/17/23 10:12 Assessment and Plan *Assessment and plan (1) Right shoulder pain: Status: Acute Category: Medical Code(s): M25.511 - Pain in right shoulder Plan Patient did get her compounded cream and states that she has started to use it. I did discuss with the patient to continue to do this between now and her next visit and see if it does help with her right shoulder. I did also discuss with the patient in future she may benefit from a right shoulder intra-articular injection. We will follow-up with this at future visits. Patient will return to clinic in 2 weeks for reevaluation of symptoms and plan of care. Patient has been instructed to contact the clinic with any concerns before the next appointment. Dr. Shepherd has reviewed this note and agrees with this plan of care. This note was dictated using voice recognition software and make contain errors or omissions. All injections are used with Lidocaine or Bupivacaine and Depo Medrol.
== END 2024-04-24 23:59 | disposition home or self-care (01) ==
LOC: SC.PAIN 08:23
PROVIDERS: PCP Internal Medicine Adolescent Medicine; Visit Provider Nurse Practitioner Family
DX: M25.511 Pain in right shoulder (principal)
CPT/HCPCS: 99212; G0463

== ENCOUNTER 2024-08-22 07:17 | Outpatient (CLI) | payer BC, SELFPAY ==
[2024-08-22 08:46] LABS: Free T4 (Free Thyroxine) 1.12 ng/dl (0.78-2.19)
[2024-08-22 17:08] LABS: Hemoglobin A1C 5.5 % (4.0-6.0)
== END 2024-08-22 23:59 | disposition home or self-care (01) ==
LOC: LAB 07:20
PROVIDERS: PCP Internal Medicine Adolescent Medicine; Visit Provider Internal Medicine Endocrinology, Diabetes & Metabolism
DX: E06.3 Autoimmune thyroiditis (principal); E11.9 Type 2 diabetes mellitus without complications
CPT/HCPCS: 36415; 83036; 84439; 84443; 84481

== ENCOUNTER 2024-12-12 08:29 | Outpatient (CLI) | payer BC, SELFPAY ==
--- OUTSIDE RECORDS SUMMARY | 2024-09-27 17:30 | XMS_ITS ---
Author Organization [facility] Address [address] [place] [address] Care Team Providers Care [employer] Name Role Phone Jorge Esqueda Primary Care Provider Migration, Provider Unavailable Unavailable Allergies Allergen (clinical drug ingredient) Drug/Non Drug Allergy documented on EMR Reaction Allergy Type Onset Date Status CECLOR (uncoded) hives Allergy Act [place] metronidazole Flagyl vomiting Drug Allergy Act [place] codeine Codeine vomiting Drug Allergy Active morphine Morphine vomiting Drug Allergy Active [facility]IT [facility] Conversion Encounter Medications Medication SIG (Take, Route, Frequency, Duration) Notes Start Date End Date Status MiraLax - 17 GRAM ORALLY ONCE A DAY for 30 DAYS prn *Please review and pick correct strength-formulati on from [facility] options. If intended option is not shown, discontinue and re-order from Quick Search* Active B-12 1000 MCG 1 tab(s) orally once a day for 30 day(s) Active Ondansetron HCl 4 MG 1 tab(s) orally every 8 hours as needed for nausea for 3 days 08/11/2024 Active Pyridium 200 MG 1 tab(s) orally 3 times a day (after meals) for 2 days 08/11/2024 Active Omeprazole 40 MG 1 cap(s) orally once a day for 90 days Active Synthroid 75 MCG 1 tab(s) orally once a day Active KONSYL 3.4 G/6.5 G DIRECTED ORALLY ONCE A DAY for 7 DAY(S) *Please review for potential replacement for e-prescription and drug interaction check* Active busPIRone HCl 10 MG 1 tab(s) orally ever y night prn Active Estradiol 0.1 MG/GM as directed intravaginally 3 times a week Active Vitamin D3 25 MCG (1000 UT) 1 tab(s) orally once a day for 30 day(s) Active Encounters Encounter Location Date Provider Diagnosis [facility] [address] [place] [address] 09/27/2024 Provider Migration Plan Of Treatment No Information Progress Notes * BRIANMiriamReneeOB: [birth year] (59 yo F)Acc No.[id number]:09/27/2024 Patient: Nettie BLACKBURN Provider: Gregorio oliveira Migration :1965 A ge:59 Y S ex:Female Date:09/27/2024 Address:[address] [place] [address] [facility] [id number] Pcp:Jorge Esqueda Subjective: * Chief Complaints: * 1 . [facility] To [facility] Conversion Encounter. * Medical History: * Medications: T aking Estradiol 0.1 MG/GM Cream as directed intravaginally 3 times a week , Taking busPIRone HCl 10 MG Tablet 1 tab(s) orally every night , Notes to Pharmacist: prn, Taking KONSYL 3.4 G/6.5 G POWDER FOR RECONSTITUTION DIRECTED ORALLY ONCE A DAY , Notes to Pharmacist: *Please review for potential replacement for e-prescription and drug interaction check*, Taking Synthroid 75 MCG Tablet 1 tab(s) orally once a day , Taking Vitamin D3 25 MCG (1000 UT) Tablet 1 tab(s) orally once a day , Taking B- 12 1000 MCG Tablet 1 tab(s) orally once a day , Taking MiraLax - POWDER FOR RECONSTITUTION 17 GRAM ORALLY ONCE A DAY , Notes to Pharmacist: prn *Please review and pick correct strength-formulation from [facility] options. If intended option is not shown, discontinue and re-order from Quick Search*, Taking Omeprazole 40 MG Capsule Delayed Release 1 cap(s) orally once a day , Taking Pyridium 200 MG Tablet 1 tab(s) orally 3 times a day (after meals) , Taking Ondansetron HCl 4 MG Tablet 1 tab(s) orally every 8 hours as needed for nausea * Allergies: C ECLOR: hives - Allergy, Flagyl: vomiting - Allergy, Morphine: vomiting - Allergy, Codeine: vomiting - Allergy. Objective: * Vitals: Assessment: Plan: * Treatment: * * Electronic signature of Prov ider Migration on 12/12/2024 at 08:33 AM EDT Sign off status: Pending * Provider: Gregorio oliveira Migration Date: 0 09/27/2024 Generated for Avila blount/Di/Krystianitting on: 12/12/2024 08:33 AM EDT
--- OUTSIDE RECORDS SUMMARY | 2024-11-20 05:45 | XMS_ITS ---
Author Organization [facility] Address [address] [place] [address] Care Team Providers Care Credit Department Manager Name Role Phone Jorge Esqueda Primary Care Provider Carly Diamond Unavailable [phone] Allergies Allergen (clinical drug ingredient) Drug/Non Drug Allergy documented on EMR Reaction Allergy Type Onset Date Status CECLOR (uncoded) hives Allergy Act s[place] metronidazole Flagyl vomiting Drug Allergy Act s[place] codeine Codeine vomiting Drug Allergy Active morphine Morphine vomiting Drug Allergy Active REASON FOR VISIT rt ear pain, feels full of water Medications Medication SIG (Take, Route, Frequency, Duration) Notes Start Date End Date Status MiraLax - 17 GRAM ORALLY ONCE A DAY for 30 DAYS prn *Please review and [facility]. If intended option is not shown, discontinue and re-order from Quick Search* Active methylPREDNISolone 4 MG as directed Oral ly as directed for 6 days 11/20/2024 Active Omeprazole 40 MG 1 cap(s) orally once a day for 90 days prn Active busPIRone HCl 10 MG 1 tab(s) orally every night prn Active B-12 1000 MCG 1 tab(s) orally once a day for 30 day(s) Active Vitamin D3 25 MCG (1000 UT) 1 tab(s) orally once a day for 30 day(s) Active Synthroid 75 MCG 1 tab(s) orally once a day Active KONSYL 3.4 G/6.5 G DIRECTED ORALLY ONCE A DAY for 7 DAY(S) *Please review for potential replacement for e-prescription and drug interaction check* Active Estradiol 0.1 MG/GM as directed intravaginally 3 times a week Active Social History Tobacco Use: Social History Observation Description Date Details (start date - stop date) Never Smoker NA - NA Smoking: Question Answer Notes Are you a: nonsmoker Vital Signs Temperature 97.8 degrees Fahrenheit 11/21/19 25 Heart Rate 98 /min 11/20/2024 Blood pressure systolic 132 mm Hg 11/21/19 25 Blood pressure diastolic 86 mm Hg 025 Height 63 in 11/20/2024 Weight 156.4 lbs 11/20/2024 BMI 27.7 kg/m2 11/20/2024 Encounters Encounter Location Date Provider Diagnosis [facility] [address] [place] [address] 11/20/2024 Carly Diamond Otalgia, right ear H92.01 and Dysfunction of right eustachian tube H69.91 Assessments Encounter Date Diagnosis (ICD Code) Assessment Notes Treatment Notes Treatment Clinical Notes Section Notes 11/20/2024 Otalgia, right ear (ICD-10 - H92.01) Reassurance provided, this will typically resolve with time. Continue Zyrtec, routine use of Flonase and short acting decongestant PRN. If no improvement with steroids will refer to ENT 11/20/2024 Dysfunction of right eustachian tube (ICD-10 - H69.91) Plan Of Treatment Medication Medication Name Sig Start Date Stop Date Notes methylPREDNISolone 4 MG as directed Oral ly as directed for 6 days 11/20/2024 Next Appt Details Follow Up: prn, Reason: Progress Notes * BRIANMiriamReneeOB: [birth year] (59 yo F)Acc No.[id number]:11/20/2024 Progress Notes Patient: Nettie BLACKBURN Provider: NESTOR Oseguera :1965 A ge:59 Y S ex:Female Date:11/20/2024 Address:[address] [place] [address] [employer] [facility] Pcp:Jorge Esqueda Subjective: * Chief Complaints: * 1 . Rt ear pain, feels full of water. * HPI: E NT/respiratory: Presents today with about 8 weeks of intermittent right sided ear pain. She is using Flonase and taking Zyrtec routinely. No fevers. She did have some URI symptoms over the past week or so and was given a zpack in the [facility] - they told her that even her left ear was mildly erythematous but it hasn't been symptomatic. No improvement in her ear symptoms. 59 year old female presents with c/o nasal congestion. c/o ear pain r ight side, intermittently, pressure and pain. c/o rhinorrhea. c/o postnasal drip. Denies : sore throat. D enies : cough. D enies : fever.? * ROS: C ONSTITUTIONAL: Reviewed, No Symptoms Reported: Y es. * Medical History: h ashimotos - Dr Pérez, Diverticulitis, GERD, Lumbar DDD, Vit B12 deficiency, TMJ, Dr Bright for [employer] care, Normal breast MRI 08/18, Colonoscopy 09/15 - polyps and diverticulosis - 5 year f/u. * Social History: S moking A re you a: n onsmoker. R ecreational drug use: no. Exercise: yes, walking. Home smoke detector use: yes. Caffeine: yes, 1 cup coffee daily. Living Will: Yes. Alcohol: socially, occasional wine. Sexually active: yes. Travel outside [place]: no. * Medications: T aking Estradiol 0.1 MG/GM [...] 1 cap(s) orally once a day , Notes to Pharmacist: prn, Discontinued Pyridium 200 MG Tablet 1 tab(s) orally 3 times a day (after meals) , Discontinued Ondansetron HCl 4 MG Tablet 1 tab(s) orally every 8 hours as needed for nausea , Medication List reviewed and reconciled with the patient * Allergies: C ECLOR: hives - Allergy, Flagyl: vomiting - Allergy, Morphine: vomiting - Allergy, Codeine: vomiting - Allergy. Objective: * Vitals: N urse: jl, Pain: 4-ear, Temp: 97.8, RR: 20, HR: 98, BP: 132/86, Ht: 63, Wt: 156.4, BMI:27.7. * Examination: E NT/Respiratory: General Appearance : w ell nourished and hydrated, alert.? Ears: a uditory canals normal bilaterally, left tm normal, right tm retracted but normal color. Nose : t urbinates red, mild congestion. Sinuses : n on tender bilaterally. Oral Cavity n o erythema or exudate seen on pharynx. Neck : n o cervical lymphadenopathy. Heart : R RR, normal S1 S2, no murmurs. Lungs : c lear to auscultation bilaterally, no crackles or wheezes. Skin : c lear without rashes. Assessment: * Assessment: 1. O talgia, right ear - H92.01 (Primary) 2 . D ysfunction of right eustachian tube - H69.91 Plan: * Treatment: 2. D ysfunction of right eustachian tube Start methylPREDNISolone Tablet, 4 MG, as directed, Orally, as directed, 6 days, 1 PACK, Refills 0.? * Follow Up: p rn * * Sign off status: Completed true * Provider: NESTOR Oseguera Date: 0 11/20/2024 Generated for Elleni jose alejandro/Di/eTkayitting on: 0 12/12/2024 08:32 AM EDT History and Physical Notes * HPI (History of Present Illness) Category Sub-Category Detail Notes Category Not es ENT/respiratory sore throat ear pain right side, intermit tently, pressure and pain cough fever postnasal drip rhinorrhea nasal congestion Examination Category Sub-Category Detail Notes Category Not es ENT/Respiratory Oral Cavity no erythema or exudate se en on pharynx Sinuses : non tender bilateral ly Ears: auditory canals norm al bilaterally, left tm normal, right tm retracted but normal color Neck : no cervical lymphade nopathy Heart : RRR, normal S1 S2, n o murmurs Lungs : clear to auscultatio n bilaterally, no crackles or wheezes General Appearance : well nourished and hydrated, alert Nose : turbinates red, mild congestion Skin : clear without rashes
--- OUTSIDE RECORDS SUMMARY | 2024-12-12 08:32 | XMS_ITS | Referral Summary ---
Author Organization [employer] [facility] [employer] Address [address] [place] [address] Care Team Providers Care Detention Worker Name Role Phone Jorge Esqueda MD Primary Care Provider Allergies Active Allergy Reactions Criticality Noted Date Comments Cefaclor 06/12/2024 Codeine 06/12/2024 Metronidazole 06/12/2024 Morphine 06/12/2024 Medications levothyroxine (Synthroid) 75 MCG tablet Take 1 tablet (75 mcg total) by mouth Daily (0600). Active omeprazole (PriLOSEC) 40 MG capsule Take 1 capsule (40 mg total) by mouth daily. 4 Active busPIRone (BUSPAR) 10 MG tablet Take 1 tablet (10 mg total) by mouth nightly. 4 Active fluticasone propionate (FLONASE) 50 mcg/actuation nasal spray 1 spray by each nostril route daily as needed. Active cyanocobalamin 1000 MCG tablet Take 1 tablet (1,000 mcg total) by mouth daily. Active estradioL (ESTRACE) 0.01 % (0.1 mg/gram) vaginal cream Place 2 g vaginally every Sunday, Sunday, Sunday. 4 Active Ozempic 0.25 mg or 0.5 mg (2 mg/3 mL) pnij Inject 0.5 mg subcutaneously once a week Wednesdays. Active cholecalcifero l, vitamin D3, 25 mcg (1,000 unit) capsule Take 1 capsule (1,000 Units total) by mouth daily. Active cetirizine (ZyrTEC) 10 MG tablet Take 1 tablet (10 mg total) by mouth daily. Active polyethylene glycol (MIRALAX) 17 gram/dose powder Take 17 g by mouth daily. Active polycarbophiL (FIBERCON) 625 mg tablet Take 1 tablet (625 mg total) by mouth daily. Active Active Problems Problem Noted Date Diagnosed Date Arthritis Diabetes mellitus Overview (06/13/2024): borderline GERD (gastroesophageal reflux disease) Neck pain Thyroid disease Social History Tobacco Use Types Packs/Day Years Used Date Smoking Tobacco: Never Smokeless Tobacco: Never Tobacco Cessation:Counseling Given: Not Answered Alcohol Use Standard Drinks/Week Comments Yes 0 (1 standard drink = 0.6 oz pur e alcohol) rare Humiliation, Afraid, Rape, and Kick questionnair e Answer Date Recorded Within the last year, have y ou been afraid of your partner or ex-partner? No 06/13/2024 Within the last year, have y ou been humiliated or emotionally abused in other ways by your partner or ex-partner? No Within the last year, have y ou been kicked, hit, slapped, or otherwise physically hurt by your partner or ex-partner? No 06/13/2024 Within the last year, have y ou been raped or forced to have any kind of sexual activity by your partner or ex-partner? No 06/13/2024 PHQ-2 Answer Date Recorded Patient Health Questionnaire-2 Score 0 06/13/2024 [facility] Intimate Partner Violence Answer Da te Recorded Within the last year, have y ou been afraid of your partner or ex-partner? No 06/13/2024 Within the last year, have y ou been humiliated or emotionally abused in other ways by your partner or ex-partner? No Within the last year, have y ou been kicked, hit, slapped, or otherwise physically hurt by your partner or ex-partner? No 06/13/2024 Within the last year, have y ou been raped or forced to have any kind of sexual activity by your partner or ex-partner? No 06/13/2024 Comments No Sex and Gender Information Value Date Recorded Sex Assigned at Not on file Legal Sex Female 6:35 PM CDT Gender Identity Not on file Sexual Orientation Not on file Last Filed Vital Signs Vital Sign Reading Time Taken Comments Blood Pressure 125/59 06/20/2024 2:00 PM EST Pulse 94 06/20/2024 2:00 PM EST Temperature 36.1 C (97 F) 06/20/2024 1:41 PM EST Respiratory Rate 16 06/20/2024 1:56 PM EST Oxygen Saturation 97% 06/20/2024 2:00 PM EST Inhaled Oxygen Concentration - - Weight 70.2 kg (154 lb 12.8 oz) 024 10:06 AM EST Height 160 cm (5' 3 ) 06/13/2024 10:06 AM EST Body Mass Index 27.42 06/13/2024 10:06 AM EST Plan of Treatment Upcoming Encounters Date Type Department Care Team (Late st Contact Info) Description 02/26/2025 1:00 PM EDT Hospital Encounter [facility] Preadmission Testing [address] [facility] [address] [place] [address] 03/13/2025 7:30 AM EDT Hospital Encounter [facility] Surgery Department [address] [place] [address] Sri Kim, EDGAR [address] [place] [address] [address] [place] [address] 03/13/2025 7:30 AM EDT - 03/13/2025 10:52 AM EDT Surgery [facility] Surgery Department [address] [place] [address] Sri Kim, EDGAR [address] [place] [address] [address] [place] [address] RIGHT FIRST MPJ ARTHRODESIS, RIGHT LOBO OSTEOTOMY SECOND, 2ND MPJ CAPSULOTOMY Scheduled Procedures Name Priority Associated Diagnoses Date/Ti me FUSION, JOINT, FOOT Right foot pain Hallux rigidus of right foot Flexion deformity, right ankle and toes Metatarsalgia of right foot 03/13/2025 7:30 AM EDT OSTEOTOMY, FOOT Right foot pain Hallux rigidus of right foot Flexion deformity, right ankle and toes Metatarsalgia of right foot 03/13/2025 7:30 AM EDT CAPSULOTOMY, FOOT Right foot pain Hallux rigidus of right foot Flexion deformity, right ankle and toes Metatarsalgia of right foot 03/13/2025 7:30 AM EDT Medical Devices Implanted Type Area Director Of Digital Platforms Device Identifier Shelf Expiration Date Model / Serial / Lot Bone Vivigen Formable Cell 5cc [id number] - [id number] Implanted:Qty : 1 on 06/20/2024 by Fili Pittman Jr., MD at [facility] IMPLANTS N/A: Spine Cervical LIFENET:LIFENET TRANSPLANT SRV 05/20/2025 BL-1600-0 / [id number] / Cage Eit Cif H 6mm 8d S [id number] - [id number] Implanted:Qty : 1 on 06/20/2024 by Fili Pittman Jr., MD at [facility] IMPLANTS N/A: Spine Cervical J &J:DEPUY:DEPUY SPINE 03/14/2034 [id number] / / [id number] Plt Ant Skyln Hybrd Lvl1 12mm - [id number] Implanted:Qty : 1 on 06/20/2024 by Fili Pittman Jr., MD at [facility] IMPLANTS N/A: Spine Cervical J &J:DEPUY:DEPUY SPINE 1867-06-0 12 12 / Scr Skyln Vari Sd 14mm -014 - [id number] Implanted:Qty : 4 on 06/20/2024 by Fili Pittman Jr., MD at [facility] IMPLANTS N/A: Spine Cervical J &J:DEPUY:DEPUY SPINE 50-0 14 / 0 14 / Explanted Type Area Director Of Digital Platforms Device Identifier Shelf Expiration Date Model / Serial / Lot Pin Compr Peak Pa 12mm [id number] - [id number] Explanted:Qty : 2 on 06/20/[address] [facility] IMPLANTS N/A: Spine Cervical J &J:DEPUY:DEPUY SPINE 0 12 / 9-0 12 / Insurance BLUE CROSS/BLUE SHIELD Care Teams Detention Worker Relationship Specialty Start Date End Date Jorge Esqueda MD [address] [place] [address] PCP - General Adolescent Medicine 06/13/24
--- OUTSIDE RECORDS SUMMARY | 2024-12-12 08:32 | XMS_ITS | Clinical Summary ---
Author Organization [facility] Address [address] [place] [address] Phone Care Team Providers Care Plant Ecologist Name Role Phone Destini Napier MA Conditions or Problems Problem Name Problem Code Onset Date Status Entry Date Provider Comment Standard Description Annotate LOW BACK PAIN 250218437 (SNOMED CT) Active Ranjana Teague Low back pain HERNIATED LUMBAR DISC 845871836 (SNOMED CT) Active Maday Selby MD Prolapsed lumbar intervertebral disc Medications Medication Instructions Start Date Stop Date Generic Name NDC Provider MOBIC 15 MG ORAL TABLET 1 PO QD 6 MELOXICAM 02323049174 [facility] ADMINISTRATIVE ASST MOBIC 15 MG ORAL TABLET 1 PO QD 6 MELOXICAM [id number] Maday Selby MD EQL VITAMIN D3 TABLET [facility] 6 CHOLECALCIFEROL TABS [id number] Maday Selby MD FLEXERIL 5 MG TABS [facility] 6 CYCLOBENZAPRINE HCL [id number] Maday Selby MD GABAPENTIN 300 MG CAPS [facility] 6 GABAPENTIN [id number] Maday Selby MD Medications Administered No information available. Allergies, Adverse Reactions, Alerts Allergy Name Reaction Description Start Date Severity Statu s Provider VESNA romero Critical Maday Selby MD Results No information available. Plan of Care No information available. Procedures Code Procedure Name Date Entry Date 26538 MRI Lumbar Spine (with and without) 09/17 A9585 [facility] Vital Signs Date Name Value Unit Description BMI (Body Mass Index) 24.97 kg/m2 Bod y Mass Index (Ratio) BP Diastolic 76 mm[Hg] blood pressu re, diastolic BP Systolic 110 mm[Hg] blood pressur e, systolic Height 63 [in_us] height E&M Weight Measured 141 [lb_av] weight E& M Weight Measured 141 [lb_av] weight E& M Immunizations No information available. Advance Directives No information available.
--- OUTSIDE RECORDS SUMMARY | 2024-12-12 08:32 | XMS_ITS | Patient Health Record ---
Author Organization [facility] D TAB Address [address] [place] [address] Care Team Providers Care Platform Software Engineer Name Role Phone Jorge Esqueda Primary Care Provider Carly Diamond Unavailable [phone] Migration, Provider Unavailable Unavailable Allergies Allergen (clinical drug ingredient) Drug/Non Drug Allergy documented on EMR Reaction Allergy Type Onset Date Status CECLOR (uncoded) hives Allergy Act sachin metronidazole Flagyl vomiting Drug Allergy Act sachin codeine Codeine vomiting Drug Allergy Active morphine Morphine vomiting Drug Allergy Active Results Component Value Reference Range Notes Urinalysis Reviewed date:08/11/2024 02:33:35 PM Interpretation: Performing Lab: Notes/Report: Color/Clarity yellow Leuk trace Nitrite neg Urobili 0.2 Protein neg pH 6.5 Blood trace-intact Sp. Gr. >=1.030 Ketone neg Bili neg Glucose neg Rapid Covid/Flu A-B Combo Reviewed date:07/23/2024 02:46:22 PM Interpretation: Performing Lab: Notes/Report: Rapid Covid Negative Flu A Negative Flu B Negative MRI : Cervical spine without contrast Reviewed date:02/05/2024 02:06:04 PM Interpretation: Performing Lab: Notes/Report: CULTURE, URINE, ROUTINE (395 ) Reviewed date:08/14/2024 01:47:21 PM Interpretation: Performing Lab:CB, [id number] [id number] Tino Barksdale Notes/Report: NON-FASTING CULTURE, URINE, ROUTINE SEE NOTE CULTURE, URINE, ROUTINE Micro Number: [id number] Test Status: Final Specimen Source: Urine Specimen Quality: Adequate Result: 10,000-49,000 CFU/mL of Escherichia coli E.coli INT LESLEY AMOX/CLAVULANATE S 8 AMP/SULBACTAM I 16 CEFAZOLIN NR <=4 2 CEFEPIME S <=0.12 CEFTAZIDIME S <=1 CEFTRIAXONE S <=0.25 CIPROFLOXACIN I 0.5 GENTAMICIN S <=1 IMIPENEM S <=0.25 LEVOFLOXACIN I 1 MEROPENEM S <=0.25 NITROFURANTOIN S <=16 PIP/TAZOBACTAM S <=4 TRIMETHOPRIM/SULFA S <=20 S = Susceptible I = Intermediate R = Resistant NS = Not susceptible SDD = Susceptible Dose Dependent * = Not Tested NR = Not Reported NN = See Therapy Comments THERAPY COMMENTS (Distinguishing susceptible versus intermediate for isolates with LESLEY < or = 4 mcg/mL requires additional testing.) Note 2: For uncomplicated UTI caused by E. coli, K. pneumoniae or P. mirabilis: Cefazolin is susceptible if LESLEY <32 mcg/mL and predicts susceptible to the oral agents cefaclor, cefdinir, cefpodoxime, cefprozil, cefuroxime, cephalexin and loracarbef. Note 1: For infections other than uncomplicated UTI caused by E. coli, K. pneumoniae or P. mirabilis: Cefazolin is resistant if LESLEY > or = 8 mcg/mL. Reason For Referral Reason MRI C-Spine Diagnosis 1 Cervical pain (neck) (M54.2) Diagnosis 2 Abnormal electromyog noe [EMG] (R94.131) Referral Organization [facility] P[facility] TAB Referring Provider First Name Jorge Referring Provider Last Name Dheeraj Referring Provider Speciality Internal M edicine Referred Organization [facility] Referred Address [address] [facility] [address] [facility], [place], [place],[address], Referred Provider Specialty Diagnostic R adiology General Notes Suzanne Birmingham 2023 11:30:07 AM >Pending Precert- Call [phone] to check precertVinnie Nickie 01/14/2024 04:21:48 PM >Left a vm to check status. Had to leave a message and they will call with information., Ector Birminghamie 01/16/2024 11:01:45 AM >left another vm with the precert dept demanding a call back with precert status, Suzanne Birmingham 01/17/2024 02:30:55 PM >No Precert required Ref # [id number] spoke with Minerva CPT Code 89624 Referral Priority Routine Referral Appointment Date 01/31/[address] Cruz - Neurosurg ritesh Diagnosis 1 Cervical pain (neck) (M54.2) Diagnosis 2 Radicular pain in ri ght arm (M79.2) Referral Organization [facility] Referring Provider First Name Carly Referring Provider Last Name Dara Referring Provider [facility] ctsuzette Referred Provider Specialty Neurological Surgery General Notes Suzanne Birmingham 2023 09:34:23 AM >Referral sent to Dr. Cruz. They will contact patient to schedule. Referral Priority Routine Reason ENT Diagnosis 1 Otalgia, right ear ( H92.01) Referral Organization [facility] Referring Provider First Name Carly Referring Provider Last Name Dara Referring Provider [facility] ctice Referred Organization [facility] Referred Address [address] [place] [address], [place], [place],[address], Referred Provider Specialty Otology, Lar yngology, Rhinology General Notes VinnieSuzanne 2024 02:45:41 PM >Sent to [facility] to schedule Referral Priority Routine Medications Medication SIG (Take, Route, Frequency, Duration) Notes Start Date End Date Status busPIRone HCl 10 MG 1 tab(s) orally every night prn Active Estradiol 0.1 MG/GM as directed intravaginally 3 times a week Active MiraLax - 17 GRAM ORALLY ONCE A DAY for 30 DAYS prn *Please review and pick correct strength-formula tion from Medispan options. If intended option is not shown, discontinue and re-order from Quick Search* Active B-12 1000 MCG 1 tab(s) orally once a day for 30 day(s) Active methylPREDNISolone 4 MG as directed Oral ly as directed for 6 days 11/20/2024 Active Omeprazole 40 MG 1 cap(s) orally once a day for 90 days prn Active Vitamin D3 25 MCG (1000 UT) 1 tab(s) orally once a day for 30 day(s) Active Synthroid 75 MCG 1 tab(s) orally once a day Active KONSYL 3.4 G/6.5 G DIRECTED ORALLY ONCE A DAY for 7 DAY(S) *Please review for potential replacement for e-prescription and drug interaction check* Active Immunizations Vaccine Route Administration Date Status Comme nts Influenza-Fluzone 3+years (NON-MEDICARE) Unknown 04/17/2018 Administered Social History Tobacco Use: Social History Observation Description Date Details (start date - stop date) Never Smoker NA - NA Smoking: Question Answer Notes Are you a: nonsmoker Problems Problem Type SNOMED Code ICD Code Onset Dates Problem Status W/U Status Risk Notes Problem 99353727 Other chronic pain (G89.29) Active confirmed Problem 221634762 Other seasonal allergic rhinitis (J30.2) Active confirmed Problem 91175594 Slow transit constipation (K59.01) Active confirmed Problem 554432218514787 Lumbago with sciatica, right side (M54.41) Active confirmed Problem 548911749 Lumbago with sciatica, left side (M54.42) Active confirmed Problem 584465197 Depression with anxiety (F41.8) Active confirmed Problem Urinary frequency (258157751) Urinary frequency (R35.0) Active confirmed Problem 711766339 Diverticulitis (K57.92) Active confirmed Problem 402549063 Overweight (BMI 25.0-29.9) (E66.3) Active confirmed Problem 32808857 Other chronic pain (G89.29) Active confirmed Problem 240610599 BMI 30.0-30.9,adult (Z68.30) Active confirmed Problem 126917057 Acquired hypothyroidism (E03.9) Active confirmed Problem 81859584 DDD (degenerativ e disc disease), lumbosacral (M51.37) Active confirmed Problem 540183901 Diverticulitis o f sigmoid colon (K57.32) Active confirmed Problem 085174176 OAB (overactive bladder) (N32.81) Active confirmed Problem 37738491 Seasonal allergi c rhinitis due to pollen (J30.1) Active confirmed Problem Gastroesophageal reflux disease (disorder) (973655227) Chronic GERD (K21.9) Active confirmed Problem 763892896 Paresthesia of lower extremity (R20.2) Active confirmed Problem 808243771 Diverticulosis (K57.90) Active confirmed Problem 4510535 Gastritis withou t bleeding, unspecified chronicity, unspecified gastritis type (K29.70) Active confirmed Problem 216696493 History of lumba r discectomy (Z98.890) Active confirmed Problem 117987747 Secondary insomnia (G47.09) Active confirmed Vital Signs Heart Rate 98 /min 11/20/2024 Temperature 97.8 degrees Fahrenheit 11/20/2024 Blood pressure diastolic 86 mm Hg 11/20/2024 Height 63 in 11/20/2024 Blood pressure systolic 132 mm Hg 11/20/2024 Weight 156.4 lbs 11/20/2024 BMI 27.7 kg/m2 11/20/2024 Encounters Encounter Location Date Provider Diagnosis [facility] [address] [place] [address] 09/27/2024 Provider Migration [facility] [place] [address] [address] 07/23/2024 Carly Dara Subacute cough R05.2 and URI with cough and congestion J06.9 [facility] [address] [place] [address] 08/11/2024 Carly Dara Dysuria R30.0 ; Prediabetes R73.03 and Routine medical exam Z00.00 [facility] [address] [place] [address] 09/26/2024 Carly Dara Otalgia, right ear H92.01 and Dysfunction of right eustachian tube H69.91 [facility] [address] [facility] [address] [place] [address] 11/20/2024 Carly Dara Otalgia, right ear H92.01 and Dysfunction of right eustachian tube H69.91 [facility] [place] [address] [address] 01/14/2024 Carly Dara [facility] [address] [place] [address] 01/17/2024 Jorge Deanason Cervical pain (neck) M54.2 [facility] [address] [place] [address] 02/05/2024 Carly Diamond [facility] [address] [facility] [address] [place] [address] 12/04/2024 Carly Diamond Assessments Encounter Date Diagnosis (ICD Code) Assessment Notes Treatment Notes Treatment Clinical Notes Section Notes 08/11/2024 Prediabetes (ICD-10 - R73.03) due for monitoring labs 11/20/2024 Otalgia, right ear (ICD-10 - H92.01) Reassurance provided, this will typically resolve with time. Continue Zyrtec, routine use of Flonase and short acting decongestant PRN. If no improvement with steroids will refer to ENT 11/20/2024 Dysfunction of right eustachian tube (ICD-10 - H69.91) 09/26/2024 Otalgia, right ear (ICD-10 - H92.01) Reassurance provided, this will typically resolve with time. Continue Zyrtec, routine use of Flonase and we discussed the addition of a short acting decongestant which may be helpful. If symptoms persist or increase would also be reasonable to try a round of steroids. Return precautions reviewed 09/26/2024 Dysfunction of right eustachian tube (ICD-10 - H69.91) 07/23/2024 URI with cough and congestion (ICD-10 - J06.9) Discussed the etiology and expected course of a viral URI. Discussed supportive care and symptom management with PO fluids, Antipyretics, and antihistamines. Discussed the rational for not prescribing antibiotics for viral infection. Discussed the signs and symptoms of worsening condition and need for reassessment in clinic or ED. 07/23/2024 Subacute cough (ICD-10 - R05.2) 01/17/2024 Cervical pain (neck) (ICD-10 - M54.2) 08/11/2024 Dysuria (ICD-10 - R30.0) Discussed suspected UTI based on symptoms/UA results and need for treatment with antibiotics as well as good water intake. Discussed return precautions including fever, vomiting, intractable pain, etc. 08/11/2024 Routine medical exam (ICD-10 - Z00.00) Plan Of Treatment Pending Test Test Name Order Date CT Scan : Abdomen and Pelvis, with and w ithout contrast 02/11/2020 M-Complete Blood Count Auto Diff 018 M-Complete Blood Count Auto Diff 025 M-Comprehensive Metabolic Panel 08/11/19 25 M-Basic Metabolic Panel 02/15/2018 M-Hemoglobin A1C 08/11/2024 M-Lipid Panel 08/11/2024 M-Lipid Panel 02/15/2018 M-Thyroid Stimulating Hormone 02/15/2018 Physical Therapy : Aquatic Therapy 01/23 Physical Therapy : Aquatic Therapy 12/22 LIPID PANEL, STANDARD (7600) 12/03/2023 COMPREHENSIVE METABOLIC PANEL (01701) CBC (INCLUDES DIFF/PLT) (6399) HEMOGLOBIN A1c (496) 12/03/2023 TSH W/REFLEX TO FT4 (54681) 12/03/2023 Insurance Providers Payer Name Payer Address Payer Phone Subscriber Number Group Number Insured Name Patient Relationship to Insured Coverage Start Date Coverage End Date [facility] [address] [place] [address] [id number] Nettie Munoz Self - patient is the insured Medications Administered Medication Instructions Date of Administration Dosage Notes Dexamethasone 4mg Injection 05/11/2021 4 mg Dexamethasone 4mg Injection 02/13/2023 4 mg Triamcinolone Acetonide 40mg Injection 12/12/2018 1 mL Medical (General) History Medical History History ICD Code hashimotos - Dr Pérez diverticulitis GERD Lumbar DDD Vit B12 deficiency TMJ Dr Bright for 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
--- OUTSIDE RECORDS SUMMARY | 2024-12-12 08:32 | XMS_ITS | Clinical Summary ---
Author Organization [facility] Address [address] [place], [place] [address] Care Team Providers Care Grove Superintendent Name Role Phone Nonstaff, Referring Primary Care Provider [phone] Anay Pérez MD Unavailable [phone] Allergies Active Allergy Reactions Criticality Noted Date Comments Cefaclor Hives High 12/29/2016 Codeine Nausea And Vomiting High 12/29/2016 Metronidazole Nausea And Vomiting High 12/29/2016 Morphine Itching High 12/29/2016 Morpholine Analogues Nausea And Vomiting 2018 Medications Cholecalciferol, Vitamin D3, 1,000 unit Capsule Take 2,000 Units by mouth daily. Active cyanocobalamin 1,000 mcg tablet Take 1,000 mcg by mouth daily. Active busPIRone (BUSPAR) 10 mg tablet Take 1 Tablet (10 mg total) by mouth nightly. 12/14/19 21 Active calcium polycarbophil (KONSYL FIBER PO) Take by mouth. Active gabapentin (NEURONTIN) 300 mg capsule Take 300 mg by mouth 2 times daily. Active estradioL (Estrace) 0.01 % (0.1 mg/gram) Cream Insert 1 g into vagina 2 times weekly. 10/01/19 24 Active semaglutide (Ozempic) 0.25 mg or 0.5 mg (2 mg/3 mL) Pen InjectorIndicatio ns:Type 2 diabetes mellitus without complication, without long-term current use of insulin 0.5 mg by Subcutaneous route once weekly. 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 (Primary Dx); Type 2 diabetes mellitus without complication, without long-term current use of insulin ([facility]); Obesity (BMI 30-39.9); Thyroid nodule; Vitamin D deficiency 09/15/2024 Telephone [facility], [address] [place] [address] Liya Floyd RN Other (Taj JACOBS) from Last 3 Months Family History Medical History Relation Name Comments Diabetes Father Diabetes Maternal Aunt Hypothyroidism Mother Relation Name Status Comments Father Maternal Aunt Mother Social History Tobacco Use Types Packs/Day Years Used Date Smoking Tobacco: Never Smokeless Tobacco: Never Tobacco Cessation:Counseling Given: Not Answered Alcohol Use Standard Drinks/Week Comments No 0 (1 standard drink = 0.6 oz pur e alcohol) Comments No Sex and Gender Information Value Date Recorded Sex Assigned at Not on file Legal Sex Female 5:15 PM EST Gender Identity Not on file Sexual Orientation Not on file Last Filed Vital Signs Vital Sign Reading Time Taken Comments Blood Pressure 118/66 09/15/2024 9:13 AM EDT Pulse 83 04/01/2018 11:31 AM EDT Temperature 36.2 C (97.1 F) 05/03/2020 8:01 AM EST Respiratory Rate - - Oxygen Saturation - - Inhaled Oxygen Concentration - - Weight 69.4 kg (153 lb) 09/15/2024 9:13 AM EDT Height 160 cm (5' 3 ) 09/15/2024 9:13 AM EDT Body Mass Index 27.1 09/15/2024 9:13 AM EDT Plan of Treatment Upcoming Encounters Date Type Department Care Team (Late st Contact Info) Description 09/07/2025 10:00 AM EDT Appointment [facility], [place] [address] [facility] [address] [facility] [address] Anay Pérez MD [address] [place] [address] Health Maintenance Due Date Last Done Comments Cologuard 1966 Colonoscopy 1966 Colorectal Cancer Screening 1966 Diabetes Mellitus Eye Exam (Yearly) 1966 Diabetes Mellitus Foot Care (Yearly) 1966 Diabetes Mellitus Microalbum in (Yearly) 1966 FIT 1966 Lipid Monitoring 1983 Pneumococcal Vaccine: 50+ Ye ars (1 of 1 - PCV) 2016 Zoster-RZV(Shingrix) (1 of 2) 2016 Tetanus Vaccination (Every 1 0 Years) 10/05/2019 10/04/2009 COVID-19 Vaccine ( - 2023-2 5 season) 2024 Diabetes A1c Monitoring 03/12/2024 09/10/19 24, 09/21/2022, 05/17/2021, Additional history exists BMI Counseling 06/25/2024 Depression Screening 06/25/2024 Influenza Vaccination (Seaso n Ended) 2025 Renal Monitoring 06/13/2025 06/13/2024, , 09/21/2022, Additional history exists Breast Cancer Screening 08/13/2025 08/13/19 24, 08/03/2023, 08/03/2023, Additional history exists Procedures Procedure Name Priority Date/Time Associated Diagnosis Comments HGB, A1C (GLYCOHEMOGLOBIN) Routine 09/10/2023 8:39 AM EDT 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 BUN 10 7 - 25 mg/dL [facility] Creatinine 0.68 0.50 - 1.20 mg/dL [facility] Glucose 114(H) 71 - 99 mg/dL [facility] Comment:Reference range (71- 99 mg/dL) refers only to fasting samples, and does not apply to non-fasting samples. eGFR CKD-EPI 2020 102 See Note [facility] Comment: eGFR calculated with 2020 CKD-EPI equation using creatinine, patient's age and gender. Other factors, especially muscle mass, may affect accuracy and need to be considered. Patient values should be interpreted as a trend. The reference interval is >60 mL/min/1.73m2. Calcium 9.4 8.5 - 10.5 mg/dL [facility] Comment:Effective 10/26/2022, the calcium reference range has been updated. Phosphorus 3.4 2.5 - 4.5 mg/dL [facility] Albumin 4.3 3.5 - 5.0 g/dL [facility] BUN/Creatinine Ratio 15 [facility] Serum (Serum) 09/10/2023 8:3 9 AM EDT 09/10/2023 3:09 PM EDT us Anay Pérez MD CHEMISTRY ORDERABLES Jenny turpin Result [facility] [address] [id number] * (ABNORMAL) HGB, A1C (GLYCOHEMOGLOBIN) (09/10/2023 8:39 AM EDT) Hgb A1C 5.8(H) 4.0 - 5.6 % [facility] Comment: Reference Ranges for Hgb A1c: Increased risk for diabetes: 5.7-6.4% Probable diabetes: >=6.5% Desired control for previously diagnosed diabetics: <7.0% Many conditions can affect the Hgb A1c value including hemolysis, recent transfusion, hemoglobin variants, thalassemias, severe chronic hepatic and renal disease and iron deficiency among others. Please note that results from this assay are invalid for patients with abnormal amounts of Hemoglobin (HbF). Results must be interpreted in the proper clinical context. This method is certified by the National Glycohemoglobin Standardization program (NGSP) and traceable to [facility]. Estimated Average Glucose 120(H) 68 - 114 mg/dL [facility] Whole Blood 09/10/2023 8:39 AM EDT 09/10/2023 3:28 PM EDT us Anay Pérez MD CHEMISTRY ORDERABLES Jenny turpin Result [facility] [address] from Last 3 Months or Most Recently Relevant to Health Maintenance Insurance [employer] Care Teams Grove Superintendent Relationship Specialty Start Date End Date Nonstaff, MD Alonso PCP - General 05/27/19 Anay Pérez MD [address] [facility] [address] [place] [address] Endocrinology/Diabetes/Met abolism 08/24/20
--- OUTSIDE RECORDS SUMMARY | 2024-12-12 08:32 | XMS_ITS | Encounter Summary ---
Author Organization [facility] Address [facility] [place] [address] Care Team Providers Care Gas Utility Worker Name Role Phone Nonstaff, Referring MD Primary Care Provider [phone] Anay Pérez MD Unavailable [phone] Reason for Visit * Reason Comments Medications Refill Encounter Details Date Type Department Care Team (Late st Contact Info) Description 06/09/2021 Refill [facility] - [facility], [place] [place] [address] Anay Pérez MD [address] [facility] [address] [place] [address] Medications Refill Social History Tobacco Use Types Packs/Day Years Used Date Smoking Tobacco: Never Smokeless Tobacco: Never Alcohol Use Standard Drinks/Week Comments No 0 (1 standard drink = 0.6 oz pur e alcohol) Comments No Sex and Gender Information Value Date Recorded Sex Assigned at Not on file Legal Sex Female 5:15 PM EST Gender Identity Not on file Sexual Orientation Not on file COVID-19 Exposure Response Date Recorded In the last month, have you been in contact with someone who was confirmed or suspected to have Coronavirus / COVID-19? 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
--- OUTSIDE RECORDS SUMMARY | 2024-12-12 08:32 | XMS_ITS | Clinical Summary ---
Author Organization [facility] Address [address] [place] [address] Care Team Providers Care Sde Name Role Phone Carly Diamond APRN Primary Care Provider +- [phone] Sagar Robbins MD Unavailable [phone] Alicia Mathews DDS Unavailable [phone] Alirio Miranda DMD Unavailable [phone] Allergies Active Allergy Reactions Criticality Noted Date Comments Cefaclor Hives,Unknown - Nedra ent states they do not know rxn details High 12/29/2016 Other reaction(s): hives Codeine Nausea And Vomiting,Unknown - Patient states they do not know rxn details,Other - please document in the comment field High 12/29/2016 Other reaction(s): vomiting Metronidazole Nausea And Vomiting,Unknown - Patient states they do not know rxn details,Other - please document in the comment field High 12/29/2016 Other reaction(s): vomiting Morphine Itching,Nausea And Vomiting,Unknown - Patient states they do not know rxn details,Other - please document in the comment field High 12/29/2016 Other reaction(s): vomiting Medications busPIRone (Buspar) 10 MG tablet 1 tab(s) 1 Active cholecalcifero l (Vitamin D-3) 25 MCG (1000 UT) capsule Take 2 capsules (2,000 Units) by mouth. 9 Active cyanocobalamin (Vitamin B-12) 1000 MCG tablet Take 1 tablet (1,000 mcg) by mouth. Active levothyroxine (Synthroid, Levoxyl) 75 MCG tablet 1 (one) time each day at the same time. 9 Active polyethylene glycol (Miralax) 17 GM/SCOOP powder 1 (one) time each day at the same time. Active Psyllium (Konsyl-D) 52.3 % powder 1 (one) time each day at the same time. Active fluticasone (Flonase) 50 MCG/ACT nasal spray instill 1 SPRAY IN EACH NOSTRIL EVERY DAY 2 Active omeprazole (PriLOSEC) [address] capsule Take 1 capsule (40 mg) by mouth 1 (one) time each day. 2 Active Intrarosa 6.5 MG insert UNWRAP AND INSERT 1 SUPPOSITORY intravaginally EVERY NIGHT AT BEDTIME Active Ozempic, 0.25 or 0.5 MG/DOSE, 2 MG/3ML solution pen-injector Inject 1.5 mg under the skin 1 (one) time per week. Active estradiol (Estrace) 0.1 MG/GM vaginal cream Insert pea sized amount into vagina 3 times a week for prevention of urinary tract infections 42.5 g 11 4 Active Hospital, Clinic, or Other Facility Administered Medication Ordered Dose Route Frequency Start Date End Date Status IV BagIndications:Spondylosis of lumbar region without myelopathy or radiculopathy 100 mL/hr IV Continuous 12/30/2021 Active Active Problems No known active problems Family History Medical History Relation Name Comments Diabetes Father Roque Thibodeaux Heart disease Father Roque Thibodeaux Cardiac disorder Other 1 Diabetes Other 2 Hypertension Other 3 Breast cancer Other 4 Relation Name Status Comments Father Roque Thibodeaux Other 1 Other 2 Other 3 Other 4 Social History Tobacco Use Types Packs/Day Years Used Date Smoking Tobacco: Never Smokeless Tobacco: Never Alcohol Use Standard Drinks/Week Comments Not Currently 0 (1 standard drink = 0.6 oz pur e alcohol) Occasionally PHQ-2 Answer Date Recorded Patient Health Questionnaire-2 Score 0 03/27/2024 Comments Unknown Sex and Gender Information Value Date Recorded Sex Assigned at Not on file Legal Sex Female 7:25 PM EDT Gender Identity Not on file Sexual Orientation Not on file Last Filed Vital Signs Vital Sign Reading Time Taken Comments Blood Pressure 117/80 03/27/2024 1:04 PM EDT Pulse 92 03/27/2024 1:04 PM EDT Temperature 36.8 C (98.3 F) 03/27/2024 1:04 PM EDT Respiratory Rate 16 09/08/2022 11:1 5 AM EDT Oxygen Saturation 98% 03/27/2024 1:04 PM EDT Inhaled Oxygen Concentration - - Weight 73.9 kg (162 lb 14.7 oz) 03/27/2024 1:04 PM EDT Height 157.5 cm (5' 2 ) 03/27/2024 1:04 PM EDT Body Mass Index 29.8 03/27/2024 1:04 PM EDT Plan of Treatment Upcoming Encounters Date Type Department Care Team (Late st Contact Info) Description 03/26/2025 9:30 AM EDT Appointment [facility] Ultrasound [address] [place] [address] 04/09/2025 3:45 PM EDT Office Visit Medical Office Building Urology [address] [facility], [address] [place] [address] Virgilio Marques MD [address] [place] [address] Health Maintenance Due Date Last Done Comments [facility]-HIV Screening 1966 [facility]-Hepatitis C Screening 1966 [facility]-Infant/Child/Adol SDOH Screenings 1966 [id number] Vaccine (#1) 1971 [facility]- SDOH Screenings 1984 [facility]-Adult SDOH Screenings 1984 [facility]-Hepatitis B Vaccines (1 of 3 - 19+ 3-dose series) 1985 CT Colonography 2011 Colonoscopy 2011 FIT-DNA 2011 FIT 2011 FOBT 2011 Sigmoidoscopy 2011 [facility]-Colorectal Cancer Screening 2011 [facility]-Pneumococcal Vaccine: 50+ Years (1 of 1 - PCV) 2016 [facility]-Zoster Vaccines (1 of 2) 2016 [facility]-DTaP,Tdap,and Td Vaccines (2 - Td or Tdap) 10/05/2019 10/04/2009 [facility]-Influenza Vaccine (Season Ended) 2025 [facility]-Depression Screening 03/27/2025 03/27/2024 [facility]-Breast Cancer Screening 08/13/202507/26, 08/03/2023, 08/03/2023, Additional history exists [facility]-Obesity Intervention Completed 024, 11/08/2023, 09/08/2022, Additional history exists HPV Vaccines Aged Out No longer eligi ble based on patient's age to complete this topic [facility]-HIB Vaccines Aged Out No longer e ligible based on patient's age to complete this topic [facility]-Hepatitis A Vaccines Aged Out No longer eligible based on patient's age to complete this topic [facility]-IPV Vaccines Aged Out No longer e ligible based on patient's age to complete this topic [facility]-Rotavirus Vaccines Aged Out No lo nger eligible based on patient's age to complete this topic Insurance [employer] Care Teams Sde Relationship Specialty Start Date End Date Carly Diamond APRN [address] [id number] PCP - General 09/19/21 Sagar Robbins MD [address] [place] [address] Surgeon Neurosurgery 10/04/21 Alicia Mathews DDS [address] [place] [address] Dentist Dentist 04/25/22 Alirio Miranda DMD [address] [place] [address] Dentist 04/25/22
--- OUTSIDE RECORDS SUMMARY | 2024-12-12 08:33 | XMS_ITS | Encounter Summary ---
Author Organization [facility] Address Critical access hospital[address] [place] [address] Care Team Providers Care Process Chemist Name Role Phone Nonstaff, Referring MD Primary Care Provider [phone] Anay Pérez MD Unavailable [phone] Reason for Visit * Reason Onset Date Comments Records 11/08/2021 Encounter Details Date Type Department Care Team (Late st Contact Info) Description 11/08/2021 Telephone [facility] - Diabetes & Endocrine Center, [address] [place] [address] Anay Pérez MD [address] [facility] [address] [place] [address] Records Social History Tobacco Use Types Packs/Day Years Used Date Smoking Tobacco: Never Smokeless Tobacco: Never Alcohol Use Standard Drinks/Week Comments No 0 (1 standard drink = 0.6 oz pur e alcohol) Comments No Sex and Gender Information Value Date Recorded Sex Assigned at Not on file Legal Sex Female 5:15 PM EST Gender Identity Not on file Sexual Orientation Not on file documented as of this encounter Miscellaneous Notes * Telephone Encounter - Brittney Hernandez - 11/08/2021 4:13 PM EDT Release of information request has been received and will be sent to the [employer] ([employer] ) for processing. Scanned request in media. documented in this encounter Plan of Treatment Upcoming Encounters Date Type Department Care Team (Late st Contact Info) Description 09/07/2025 10:00 AM EDT Appointment [facility] Diabetes & Endocrine Center, [place] [address] [facility] [address] [place] [address] Anay Pérez MD [address] [place] [address] documented as of this encounter Visit Diagnoses Not on filedocumented in this encounter Care Teams Process Chemist Relationship Specialty Start Date End Date Nonstaff, MD Alonso PCP - General 05/27/19 Anay Pérez MD [address] [place] [address] Endocrinology/Diabetes/Met abolism 08/24/20 documented as of this encounter
--- OUTSIDE RECORDS SUMMARY | 2024-12-12 08:33 | XMS_ITS | Encounter Summary ---
Author Organization [facility] Address [address] [place] [address] Care Team Providers Care Fisher Swordfish Name Role Phone Trace Gee MD Primary Care Provider [phone] Nonstaff, Referring Primary Care Provider [phone] Anay Pérez MD Unavailable [phone] Reason for Visit * Reason Onset Date Comments Other 03/26/2018 Appointment Encounter Details Date Type Department Care Team (Late st Contact Info) Description 03/26/2018 Telephone [facility] - Diabetes [facility] Endocrine Center, [address] [place] [address] Anay Pérez MD [address] [facility] [address] [place] [address] Other (Appointment) Social History Tobacco Use Types Packs/Day Years Used Date Smoking Tobacco: Never Smokeless Tobacco: Never Alcohol Use Standard Drinks/Week Comments Not Asked 0 (1 standard drink = 0.6 oz pur e alcohol) Comments No Sex and Gender Information Value Date Recorded Sex Assigned at Not on file Legal Sex Female 5:15 PM EST Gender Identity Not on file Sexual Orientation Not on file documented as of this encounter Miscellaneous Notes * Telephone Encounter - Zainab Jennings - 03/26/2018 4:09 PM EDT Called pt and scheduled for 04/01 at 11:30 * Telephone Encounter - Anay Pérez MD - 03/26/2018 2:24 PM EDT I could see her SundayApril 01 at 11:30 * Telephone Encounter - Zainab Jennings - 03/26/2018 1:30 PM EDT Pt called stated she is scheduled for 03/[address] Pérez @ [facility]. Pt stated she is unable to keep appt and needs to schedule next available. I scheduled pt for 04/[address] Péreznext available appt. Pt stated she is unable to wait that long to be seen and would like to see if Dr. Pérez would schedule her in sooner. I have also added the pt to the wait list incase any cancellations come up Pt ph# [phone] documented in this encounter Plan of Treatment Upcoming Encounters Date Type Department Care Team (Late st Contact Info) Description 09/07/2025 10:00 AM EDT Appointment [facility] Diabetes [facility] Endocrine Center, [place] [address] [facility] [address] [place] [address] Anay Pérez MD [address] [facility] [address] [place] [address] documented as of this encounter Visit Diagnoses Not on filedocumented in this encounter Care Teams Fisher Swordfish Relationship Specialty Start Date End Date Trace Gee MD [address] [place] [address] [place] [address] PCP - General Family Medicine 12/28/16 05/26/19 Alonso Olivier MD [address] [place] [address] [place] [id number] PCP - General 05/27/19 Anay Pérez MD [address] [place] [address] Endocrinology/Diabetes/Met abolism 08/24/20 documented as of this encounter
--- OUTSIDE RECORDS SUMMARY | 2024-12-12 08:33 | XMS_ITS | Encounter Summary ---
Author Organization [facility] Address [address] [place] [address] Care Team Providers Care Burglar Alarm Inspector Name Role Phone Samantha Diamondah Sukhi GALLOWAY Primary Care Provider + [phone] Sagar Robbins MD Unavailable [phone] Alicia Mathews DDS Unavailable [phone] Alirio Miranda DMD Unavailable [phone] Encounter Details Date Type Department Care Team (Late Contact Info) Description 09/10/2023 Orders Only External Location [address] [place] [address] Trace Miranda MD [address] [id number] Social History Tobacco Use Types Packs/Day Years Used Date Smoking Tobacco: Never Smokeless Tobacco: Never Alcohol Use Standard Drinks/Week Comments Not Currently 0 (1 standard drink = 0.6 oz pur e alcohol) Occasionally Comments Unknown Sex and Gender Information Value Date Recorded Sex Assigned at Not on file Legal Sex Female 7:25 PM EDT Gender Identity Not on file Sexual Orientation Not on file documented as of this encounter Plan of Treatment Upcoming Encounters Date Type Department Care Team (Late Contact Info) Description 03/26/2025 9:30 AM EDT Appointment [facility] Ultrasound [address] [place] [address] 04/09/2025 3:45 PM EDT Office Visit Medical Office Building Urology [address] [facility], [address] [place] [address] Virgilio Marques MD [address] [place] [address] documented as of this encounter Procedures Procedure Name Priority Date/Time Associated Diagnosis Comments XR OUTSIDE IMAGES 09/10/2023 1:54 PM EDT documented in this encounter Results * XR OUTSIDE IMAGES (09/10/2023 1:54 PM EDT) Anatomical Region Laterality Modality Radiographic Rachael ging 09/10/2023 1:54 PM EDT Trace Miranda MD IMG XR PROCEDURES Final Result documented in this encounter Visit Diagnoses Not on filedocumented in this encounter Additional Health Concerns Assessment Noted Time A fall risk assessment has been complete d for the patient 09/08/2022 11:15 AM EDT A Body Mass Index follow-up plan has been documented for the patient 09/08/2022 11:48 AM EDT documented as of this encounter Care Teams Burglar Alarm Inspector Relationship Specialty Start Date End Date Carly Diamond APRN [address] [place] [address] PCP - General 09/19/21 Sagar Robbins MD [address] [place] [address] Surgeon Neurosurgery 10/04/21 Alicia Mathews DDS [address] [place] [address] Dentist Dentist 04/25/22 Alirio Miranda DMD [address] [place] [address] Dentist 04/25/22 documented as of this encounter
--- OUTSIDE RECORDS SUMMARY | 2024-12-12 08:33 | XMS_ITS | Encounter Summary ---
Author Organization [facility] Address [address] [place] [address] Care Team Providers Care Warehouse Delivery Manager Name Role Phone Trace Gee MD Primary Care Provider [phone] Nonstaff, Referring Primary Care Provider [phone] Anay Pérez MD Unavailable [phone] Reason for Visit * Reason Onset Date Comments Results 07/19/2017 lab results ([facility]) Encounter Details Date Type Department Care Team (Late st Contact Info) Description 07/19/2017 Telephone [facility] - Diabetes & Endocrine Center, [place] [address] [place] [address] Anay Pérez MD [address] [place], [place] [phone] Results (lab results ([facility])) Social History Tobacco Use Types Packs/Day Years Used Date Smoking Tobacco: Never Alcohol Use Standard Drinks/Week Comments Not Asked 0 (1 standard drink = 0.6 oz pur e alcohol) Comments No Sex and Gender Information Value Date Recorded Sex Assigned at Not on file Legal Sex Female 5:15 PM EST Gender Identity Not on file Sexual Orientation Not on file documented as of this encounter Miscellaneous Notes * Telephone Encounter - Lenora King 07/24/2017 3:02 PM EST Labs in for PT , aware of results * Telephone Encounter - Anay Pérez MD - 07/24/2017 8:46 AM EST Let her know thyroid labs are at goal keep same dose of medication (TSh 0.82, FT4 1.42) Repeat tsh, ft4, ft3 PTV * Telephone Encounter - Moni Singer - 07/19/2017 1:59 PM EST Fax received from [facility] Labs collected on 07/18/17 documented in this encounter Plan of Treatment Upcoming Encounters Date Type Department Care Team (Late st Contact Info) Description 09/07/2025 10:00 AM EDT Appointment [facility] - Diabetes & Endocrine Center, [place] [address] [facility] [address] [place] [address] Anay Pérez MD [address] [place], [place] [address] documented as of this encounter Visit Diagnoses Not on filedocumented in this encounter Care Teams Warehouse Delivery Manager Relationship Specialty Start Date End Date Trace Gee MD [address] [place] [address] [place] [address] PCP - General Family Medicine 12/28/16 05/26/19 Alonso Olivier MD [address] [place], [place] [address] PCP - General 05/27/19 Anay Pérez MD [address] [place] [phone] Endocrinology/Diabetes/Met abolism 08/24/20 documented as of this encounter
--- OUTSIDE RECORDS SUMMARY | 2024-12-12 08:33 | XMS_ITS | Encounter Summary ---
Author Organization [facility] Address [address] [place] [address] Care Team Providers Care Tube Filler Name Role Phone Nonstaff, Referring Primary Care Provider [phone] Anay Pérez MD Unavailable [phone] Reason for Visit * Reason Comments Medications Refill Encounter Details Date Type Department Care Team (Late st Contact Info) Description 08/04/2022 Refill [facility] Diabetes & Endocrine [address] [place] [address] Doris Reynolds MD [address] [facility] [address] [place] [address] Medications Refill Social History Tobacco [...] Description 09/07/2025 10:00 AM EDT Appointment [facility] Diabetes & Endocrine [address] [place] [address] Anay Pérez MD [address] [place], [place] [address] documented as of this encounter Visit Diagnoses Diagnosis 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
--- OUTSIDE RECORDS SUMMARY | 2024-12-12 08:33 | XMS_ITS | Clinical Summary ---
Author Organization [facility] Address [address] [place] [address] Care Team Providers Care Junior Qa Analyst Name Role Phone Jorge Esqueda MD Primary Care Provider [phone] Allergies Active Allergy Reactions Criticality Noted Date [...] Description 02/26/2025 1:00 PM EDT Hospital Encounter [facility] Preadmission Testing [address] [facility] [address] [place] [address] 03/13/2025 7:30 AM EDT Hospital Encounter [facility] Surgery Department [address] [place] [address] Sri Kim, EDGAR [address] [place] [address] [address] [place] [address] 03/13/2025 7:30 AM EDT - 03/13/2025 10:52 AM EDT Surgery [facility] Surgery Department [address] [place] [address] Sri Kim, EDGAR [address] [place] [address] [address] [place] [address] RIGHT FIRST MPJ ARTHRODESIS, RIGHT LOBO OSTEOTOMY [...] of right foot 03/13/2025 7:30 AM EDT Health Maintenance Due Date Last Done Comments CT Colonography 1966 Colonoscopy 1966 Colorectal Cancer Screening 1966 Diabetic Kidney Health Evalu ation (KED) 1966 FOBT/FIT 1966 Fit-DNA (Cologuard) 1966 Sigmoidoscopy 1966 Diabetic Eye Exam 1976 Diabetic foot exam 1976 HIV Screening 1981 Hepatitis C Screening 1984 Pneumococcal 50+ years (1 of 2 - PCV) 1985 Pap Smear 1987 Breast Cancer Screening 2006 Lipid Panel 2011 DTAP/TDAP/TD VACCINES (2 - T d or Tdap) 10/05/2019 10/04/2009 COVID-19 VACCINE ( season) 2024 06/23/2021, 11/12/2020, 10/22/2020 Hemoglobin A1C 06/13/2024 Influenza Vaccine (Season Ended) 2025 04/21/20 Depression Screening (12+) 06/13/2025 06/13/2024 Tobacco Cessation Counseling and Screening (12+) 06/20/2025 06/20/2024 Shingles Vaccine (Zoster) Completed 04/11/2021, 03/2020 Medical Devices Implanted Type Area Supply Requirements Officer Device Identifier Shelf Expiration Date Model / Serial / Lot Bone Vivigen Formable Cell 5cc [id number] - [id number] Implanted:Qty : 1 on 06/20/2024 by Fili Pittman Jr., MD at [facility] IMPLANTS N/A: Spine Cervical LIFENET:LIFENET TRANSPLANT SRV 05/20/2025 [id number] / Cage Eit Cif H 6mm 8d S [id number] - [id number] Implanted:Qty : 1 on 06/20/2024 by Fili Pittman Jr., MD at [facility] IMPLANTS N/A: Spine Cervical J &J:DEPUY:DEPUY SPINE 03/14/2034 [id number] / / [id number] Plt Ant Skylmaty Hybrd Lvl1 12mm - [id number] Implanted:Qty : 1 on 06/20/2024 by Fili Pittman Jr., MD at [facility] IMPLANTS N/A: Spine Cervical J &J:DEPUY:DEPUY SPINE 12 / 12 / Scr Skyln Vari Sd 14mm 014 - [id number] Implanted:Qty : 4 on 06/20/2024 by Fili Pittman Jr., MD at [facility] IMPLANTS N/A: Spine Cervical J &J:DEPUY:DEPUY SPINE 14 / 14 / Explanted Type Area Supply Requirements Officer Device Identifier Shelf Expiration Date Model / Serial / Lot Pin Compr [place] 12mm - [id number] Explanted:Qty : 2 on 06/20/2024 at [facility] IMPLANTS N/A: Spine Cervical J &J:DEPUY:DEPUY SPINE 12 / 12 / Insurance BLUE CROSS/BLUE SHIELD Care Teams Junior Qa Analyst Relationship Specialty Start Date End Date Jorge Esqueda MD [address] [place] [address] [place] [address] PCP - General Adolescent Medicine 06/13/24
--- OUTSIDE RECORDS SUMMARY | 2024-12-12 08:33 | XMS_ITS | Data Portability ---
Author Organization [facility] Address [address] [place] [address] Care Team Providers Care Cash Control Specialist Name Role Phone NOEMI MIRELES Primary Care Provider [phone] Assessment Encounter Date Assessment Date Assessment LastModified by Organization Details LastModified Time 02/21/2024 02/21/2024 IMAGING: I personally reviewed the images with Dr. Tate and read the radiologist's report. Moderate to severe canal stenosis at C5-6 with mild cord compression Severe left and moderate to severe right foraminal stenosis at C5-6 C6-7 disc protrusion with bilateral foraminal stenosis, moderate ASSESSMENT: Kim Munoz is a 58-year-old female with history of L4-5 discectomy (performed in 1997) presents to the clinic for an initial visit regarding cervical pain with radiation into her right upper extremity x 3 months, with MRI cervical from [facility] on 01/31/2024. Dr. Tate discussed this with patient that she does have mild cord compression but her symptoms are not clearly dermatomal. We will have her undergo formal cervical physical therapy and also see Dr. Schwartz with pain management for a cervical steroid injection. We will see her back in 6 weeks to see how she is doing overall. If patient has not experienced symptomatic relief we may discuss surgical intervention at that time. We will try to obtain her EMG report in the meantime. Patient agreeable with plan. PLAN: Cervical PT referral Pain management referral for cervical steroid injections Follow-up in 6 weeks Not available 02/21/2024 09:32:48 05/01/2024 05/01/2024 IMAGING: No new imaging for review. MRI from [facility] on 01/31/2024 shows the following: Moderate to severe canal stenosis at C5-6 with mild cord compression Severe left and moderate to severe right foraminal stenosis at C5-6 C6-7 disc protrusion with bilateral foraminal stenosis, moderate ASSESSMENT: Kim Munoz is a 59-year-old who presents to the clinic for a cervical follow-up, post pain management and physical therapy. Due to persistent symptoms despite conservative treatment, Dr. Tate offers a C5-6 ACDF. This procedure was explained in great detail, including risks and recovery time. Patient understands she may spend a night in the hospital. She understands the risk of CSF leak, infection, adjacent segment disease, and the possibility of surgery not improving her symptoms. Patient wants to proceed with surgical intervention but wishes to do so after the holidays. We will introduce her to our surgery coordinator, Anay, to get her placed on the schedule. All questions were answered and patient agreeable to plan. PLAN: C5-6 ACDF Not available 05/01/2024 15:57:00 08/07/2024 08/07/2024 IMAGING: cervica l x-rays through [facility] on 08/07/2024. I personally reviewed the images with Dr. Tate and read the radiologist's report. Hardware satisfactorily in place ASSESSMENT: Kim Munoz is a 59-year-old status post C5-6 ACDF on 06/20/2024, performed by Dr. Roland Tate. Patient looks great on exam. She states she is doing well. We discussed that she may lift up to 20 pounds at this point but is still advised to take things easy as she is still recovering. We will have her follow-up in 2 to 3 months with another set of AP lateral cervical x-rays. Patient agreeable to plan. PLAN: Follow-up in 2 to 3 months with AP lateral cervical x-rays Not available 08/07/2024 09:03:11 10/30/2024 10/30/2024 Doing well after undergoing C5-6 anterior cervical discectomy fusion in late May. Neck and arm symptoms have resolved. She recently underwent biopsies for breast lesions and has some cervical thoracic soreness. I suspect this will gradually improve with time. If she feels like she needs to get into some physical therapy for this she Will call the office and we can make a referral. She does not want to do that now. I can see her on a as needed basis. She was happy with the plan. rosalind Not available 10/30/2024 12:07:12 Plan of Treatment Reminders Order Date Submit Date Provider Last Modified By Organization Details Last Modified Time Details Appointments None record ed. Lab None record ed. Referral None record ed. Procedures None record ed. Surgeries None record ed. Imaging None record ed. Medication Orders None record ed. Patient TargetsNo targets recorded. Patient InstructionsNo instructions recorded. Reason for Referral None Reported. Results Created Date Observation Date Name Description Value Unit Range Abnormal Flag Note LastModifiedBy Organization Detail LastModifiedTime 02/06/20 24 01/31/2024 MRI, cervi cheli spine , w/o contr ast No observ ation record ed. [email or web address] [facility] [address], [id number], 02/06/2024 10:53:28 08/07/19 25 08/07/2024 XR, cervi cheli spine , 2 or [address] [address] Patien t Name: NEVIN MUNOZ Patigriselda t : 966 Patien t 2 Orderi ng Provid er: ROLAND TATE EXAM DATE: 2024 EXAM: XR CERVIC AL AP/LAT CLINIC AL INFORM ATION: IMAGES PROVID ED: AP, latera l, open mouth and submen janneth views of the cervic al spine COMPAR SHANEKA: None. FINDIN GS: Previo us anteri or fixati on and interb sarahi fusion C5-6. No hardwa re loosen ing or compli cation is presen t. The alignm ent is normal . No radiog raphic eviden ce of injury is seen. IMPRES OBIE: Uncomp licate d appear ing C5-6 fusion Interp reted By: Trace Sarah MD Electr onical ly Signed By: Trace Sarah MD on 025 8:02 AM rosalind [facility] [address] [place] [address], [phone], 09/07/2024 22:00:28 10/31/19 25 10/30/2024 XR, cervi cheli spine , 2 or 3 view [place] [id number] Patigriselda t Name: NEVIN Weaver t : 966 Patigriselda t 2 Orderi ng Provid er: ROLAND TATE EXAM DATE: 2024 EXAM: XR CERVIC AL AP/LAT CLINIC AL INFORM ATION: Pain. Surger y follow -up IMAGES PROVID ED: AP, latera l, open mouth and submen janneth views of the cervic al spine COMPAR SHANEKA: 025 FINDIN GS: Previo us anteri or fixati on and interb sarahi fusion C5-6. No compli cation s. No hardwa re loosen ing. The alignm ent is normal . Stable . No radiog raphic eviden ce of injury is seen. IMPRES OBIE: Stable uncomp licate d appear ing C5-6 fusion Interp reted By: Trace Sarah MD Electr onical ly Signed By: Trace Sarah MD on 10/31/19 8:09 AM INTERFACE [facility] [address], [phone], 10/30/2024 08:14:49 Result Notes Documentation Provider Name and Address Organization Details Recorded Time Xr, Cervical Spine, 2 Or 3 View : [address] [address] Patient Name: MADHU MUNOZ Patient : 1965 Patient Ordering Provider: ROLAND TATE EXAM DATE: 08/07/2024 EXAM: XR CERVICAL AP/LAT CLINICAL INFORMATION: IMAGES PROVIDED: AP, lateral, open mouth and submental views of the cervical spine COMPARISON: None. FINDINGS: Previous anterior fixation and interbody fusion C5-6. No hardware loosening or complication is present. The alignment is normal. No radiographic evidence of injury is seen. IMPRESSION: Uncomplicated appearing C5-6 fusion Interpreted By: Trace Sarah MD ND TATE MD [address] [place] [address], [phone], [facility] 09/07/2024 22:00:28 Xr, Cervical Spine, 2 Or 3 View : [facility] [address] [place] [address] Patient Name: MADHU MUNOZ Patient : 1965 Patient Ordering Provider: ROLAND TATE EXAM DATE: 10/30/2024 EXAM: XR CERVICAL AP/LAT CLINICAL INFORMATION: Pain. Surgery follow-up IMAGES PROVIDED: AP, lateral, open mouth and submental views of the cervical spine COMPARISON: 08/07/2024 FINDINGS: Previous anterior fixation and interbody fusion C5-6. No complications. No hardware loosening. The alignment is normal. Stable. No radiographic evidence of injury is seen. IMPRESSION: Stable uncomplicated appearing C5-6 fusion Interpreted By: Trace Sarah MD Not Available [facility] 10/30/2024 08:14:50 Medical Equipment None Reported. Allergies Allergen ID Allergen Name Allergen Category Reaction Reaction Severity Criticality Documentation Date Start Date Code Code System Note Provider Name and Address Organization Details Recorded Time 865031 Ceclor medicatio n Not available Not available Not available 02/21/2024 5 [facility] 08:25:52 [id number] Flagyl medicatio n Not available Not available Not available 02/21/2024 6 RxNorm Emma Hockensmi th null, [facility] 4 08:25:57 635995 morphine medicatio n Not available Not available Not available 02/21/2024 7052 RxNorm [facility] 4 08:26:03 447861 codeine medicatio n Not available Not available Not available 02/21/2024 2670 RxNorm Emma Hockensmi th [facility] 4 08:26:12 Medications Name Sig Start Date Stop Date Status Note LastModified by Organization Details LastModified Time amoxicillin 500 mg capsule TAKE ONE CAPSULE BY MOUTH THREE TIMES DAILY UNTIL GONE active Not Available Not Available N ot Available azithromycin 250 mg tablet TAKE 2 TABLETS BY MOUTH TODAY, THEN TAKE 1 TABLET DAILY FOR 4 DAYS DIRECTED active Not Available Not Available No t Available hydrocodone 5 mg-acetamino phen 325 mg tablet TAKE ONE TABLET BY MOUTH EVERY 6 HOURS MAY CAUSE DROWSINESS active Not Available Not Available N ot Available phenazopyrid ine 200 mg tablet TAKE ONE TABLET BY MOUTH THREE TIMES DAILY AFTER MEALS FOR 2 DAYS active Not Available Not Available N ot Available ondansetron HCl 4 mg tablet TAKE ONE TABLET BY MOUTH EVERY 8 HOURS NEEDED FOR NAUSEA active Not Available Not Available No t Available omeprazole 40 mg capsule,brittany yed release TAKE ONE CAPSULE BY MOUTH EVERY DAY active Not Available Not Available No t Available levothyroxin e 75 mcg tablet active Not Available Not Available Not Available meloxicam 7.5 mg tablet TAKE ONE TABLET BY MOUTH EVERY DAY MAY CAUSE DROWSINESS active Not Available Not Available N ot Available nitrofuranto in macrocrystal 100 mg capsule TAKE ONE CAPSULE BY MOUTH EVERY DAY AT BEDTIME --TAKE WITH FOOD-- active Not Available Not Available No t Available buspirone 10 mg tablet TAKE ONE TABLET BY MOUTH EVERY DAY active Not Available Not Available No t Available gabapentin 100 mg capsule TAKE 1 TO 2 CAPSULE(S) BY MOUTH AT BEDTIME active Not Available Not Available No t Available polyethylene glycol 3350 17 gram/dose oral powder DISSOLVE 17 GRAMS OF POWDER INTO 4 TO 8 OUNCES OF WATER, JUICE, SODA, COFFEE, OR TEA THEN DRINK ONCE DAILY DIRECTED active Not Available Not Available No t Available estradiol 0.01% (0.1 mg/gram) vaginal cream INSERT PEA SIZED AMOUNT OF CREAM VAGINALLY THREE TIMES A WEEK FOR PREVENTION OF URINARY TRACT INFECTIONS active Not Available Not Available N ot Available methylpredni solone 4 mg tablets in a dose pack TAKE ACCORDING TO PACKAGE INSTRUCTION S --TAKE WITH FOOD-- -- FINISH ALL MEDICINE -- active Not Available Not Available Not Available Percocet 5 mg-325 mg tablet Take 1 tablet every 6 hours by oral route as needed. 2023 active Not Available Not Available Not Avai lable fluticasone propionate 50 mcg/actuatio n nasal spray,suspen obie INSTILL 2 SPRAYS IN EACH NOSTRIL ONCE DAILY active Not Available Not Available N ot Available diazepam 5 mg tablet TAKE ONE TABLET BY MOUTH EVERY NIGHT MAY CAUSE DROWSINESS active Not Available Not Available N ot Available amoxicillin 875 mg-potassium clavulanate 125 mg tablet TAKE ONE TABLET BY MOUTH TWICE DAILY UNTIL GONE active Not Available Not Available No t Available cyclobenzapr ine 5 mg tablet Take 1 tablet 3 times a day by oral route. active Not Available Not Available No t Available nitrofuranto in monohydrate/ macrocrystal s 100 mg capsule TAKE ONE CAPSULE BY MOUTH TWICE DAILY FOR 5 DAYS -- FINISH ALL MEDICINE -- active Not Available Not Available Not Available chlorhexidin e gluconate 0.12 % mouthwash AFTER toothbrushi ng FILL SUPPLIED CUP (1/2 OUNCE); SWISH IN MOUTH FOR 30 SECONDS TWICE DAILY (AFTER BREAKFAST & BEFORE BEDTIME). SWISH THEN EXPEL REMAINDER OR USE DIRECTED active Not Available Not Available No t Available omeprazole active Not Available Not Av ailable Not Available Synthroid active Not Available Not Traci ilable Not Available buspirone active Not Available Not Traci ilable Not Available Fiber (dextrin) active Not Available Not Available No t Available Intrarosa 6.5 mg vaginal insert unwrap AND insert 1 suppository in THE VAGINA nightly active Not Available Not Available No t Available Ozempic active Not Available Not Avail able Not Available Plenvu 140 gram-9 gram-5.2 gram powder packs TAKE DIRECTED FOR YOUR COLONSCOPY active Not Available Not Available N ot Available Ozempic 0.25 mg or 0.5 mg (2 mg/3 mL) subcutaneous pen injector inject 0.5mg SUBCUTANEOU SLY ONCE a WEEK active Not Available Not Available No t Available Vitals Date Recorded Body height Body mass index (BMI) Body weight Systolic blood pressure Diastolic blood pressure Provider Name and Address Organization Details Last Updated DateTime 08/07/2024 160.02 cm 28 kg/m2 31347.5 9 g 114 mm[Hg] 78 mm[Hg] [facility] [facility] [place] 08:43:12 Date Recorded Body height Body mass index (BMI) Body weight Systolic blood pressure Diastolic blood pressure Provider Name and Address Organization Details Last Updated DateTime 10/30/2024 160.02 cm 28.5 kg/m2 85806.3 7 g 117 mm[Hg] 76 mm[Hg] [facility] [place] [facility] [place] [facility] 08:49:17 Date Recorded Body height Body mass index (BMI) Body weight Systolic blood pressure Diastolic blood pressure Provider Name and Address Organization Details Last Updated DateTime 02/21/2024 160.02 cm 28 kg/m2 40598.5 9 g 124 mm[Hg] 78 mm[Hg] [facility] [place] [facility] [place] [facility] 08:25:43 Date Recorded Body height Body mass index (BMI) Body weight Systolic blood pressure Diastolic blood pressure Provider Name and Address Organization Details Last Updated DateTime 05/01/2024 160.02 cm 28 kg/m2 61956.5 9 g 112 mm[Hg] 84 mm[Hg] [facility] [place] [facility] [place] [facility] 11:06:11 Social History None recorded. Functional Status None recorded. Mental Status None recorded. Family History Relationship Description Onset Age of this Age Resolved Age Notes LastModified by Organization Details LastModified Time Father Diabetes mellitus [email or web address] Not available 08:26:32 Father Myocardial infarction [email or web address] Not available 0 02/21/2024 08:26:39 Father Cerebrovascu lar accident [email or web address] Not available 02/21/2024 08:26:44 Medical History Condition Response TENS Unit for current problem N Massage Therapy for current problem N Traction for current problem N Gout N Other N Neuro-modulating Drugs for current probl em N Hyperthyroidism N Emphysema N Narcotic Pain Medication for current pro blem N Black Lung N Steroid Pack for current problem N NSAID Use N Hypothyroidism Y COPD N Injections for current problem N Osteoporosis/Osteopenia N Heart Attack ([place]) N Deep Vein Thrombosis N Mental Illness N Diabetes Y Bleeding Disorder N Arthritis N Tuberculosis N Genetic Disorder N AIDS/HIV N Chiropractor treatment for current probl em N Kidney Failure N Cancer N Stroke N Asthma N Ultrasound Treatment for current problem N Epilepsy/Seizures N Sleep Apnea N Thyroid Disorder Y High Cholesterol N Physical Therapy Treatments for current problem N Liver Disease N Pulmonary Embolism N Fibromyalgia N Dialysis N Hypertension N Kidney Disease N Gynecological HistoryNo gynecological history recorded. Obstetrics History GPAL:G 0 P 0 0 0 0 Past Encounters Encounter ID Performer Location Encounter Start Date Encounter Closed Date Diagnosis/Indication Diagnosis SNOMED-CT Code Diagnosis ICD10 Code Diagnosis Note [id number] JOSE FARIAS PA-C [facility] [address] [place] [address] 02/21/2024 08:04:37 02/22/2024 04:42:41 Cervical radiculopathy 78723876 M54.12 Cervical spondylosis 387 923484 M47.812 [id number] JOSE FARIAS PA-C [facility] [address] [place] [address] 05/01/2024 10:40:41 05/02/2024 04:28:57 Cervical radiculopathy 44239818 M54.12 Cervical spondylosis 387 205673 M47.812 [id number] ROLAND TATE MD SURGERY SCHEDULE [address] [place] [address] 06/24/2024 09:47:18 06/26/2024 09:24:15 [id number] JOSE FARIAS PA-C [facility] [address] [place] [address] 08/07/2024 07:47:57 08/15/2024 08:10:56 Postoperative visit 729404685 Z48.89 [id number] ROLAND TATE MD [facility] [address] [place] [address] 10/30/2024 07:58:22 10/31/2024 04:29:29 Cervical spondylosis 248296559 M47.812 Health Concerns Section Related Observation LastModified by Organization Detai ls LastModified Time None Recorded Concern Status LastModified by Organization Details LastModified Time None Recorded Advance Directives Directive None Recorded Payers Insurance Date Sequence Insurance Name Policy Number Policy Hernandes Covered Member ID Hernandes Member ID Guarantor Name 10/30/2024 1 DELVIN-MIGUEL A: [place] [id number] Wilber Munoz [id number] Madhu Munoz Notes Date Note Type Note Provider Name and Address Organization Details Recorded Time 02/21/2024 text/html Kim Munoz is a 58-year-old female with history of L4-5 discectomy (performed in 1997) presents to the clinic for an initial visit regarding cervical pain with radiation into her right upper extremity x 3 months, with MRI cervical from [facility] on 01/31/2024. Patient denies a clear inciting event. She reports a stabbing and shooting pain that originates in her posterior cervical spine with radiation into her right anterior trapezius, posterior lateral proximal arm, posterior forearm, and into the palm of her hand. She reports a significant decrease in clinical rehabilitation aide strength in her right hand. 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 She reports a long history of gait instability but denies worsening balance over the last year. Patient takes NSAIDs as needed and 100 mg gabapentin at night for the last month. She reports gabapentin has not been beneficial for her symptoms thus far. She has seen a chiropractor which has helped her symptoms minimally. She has not seen formal PT or pain management. She states she had an EMG completed at [facility] in [place]. PA and physician visit. JOSE FARIAS PA-C [address] [place] [address], [phone], [facility] 02/21/2024 09:33:12 05/01/2024 text/html Kim Munoz is a 59-year-old who presents to the clinic for a cervical follow-up, post pain management and physical therapy. No new imaging for review. She had an L4-5 discectomy in 1997. To recap, she was evaluated in January of this year and reported a stabbing and shooting pain that originates in her posterior cervical spine with radiation into her right anterior trapezius, posterior lateral proximal arm, posterior forearm, and into the palm of her hand. She reports a significant decrease in clinical rehabilitation aide strength in her right hand. Dr. Tate discussed with her that she was ultimately a surgical candidate but she had not tried conservative measures. She was referred to pain management and cervical PT. She states physical therapy is unfortunately not relieving her symptoms significantly. She received an injection with Dr. Shepherd and states this did alleviate some of her pain but that her symptoms are still quite bothersome. She also states she would rather fix the problem then controlled symptomatically. She is largely concerned about her decreasing clinical rehabilitation aide strength in her right hand. PA and physician visit. JOSE FARIAS PA-C [address] [place], [address], [facility] 05/01/2024 15:57:10 08/07/2024 text/html Kim Munoz is a 59-year-old status post C5-6 ACDF on 06/20/2024, performed by Dr. Roland Tate, with cervical x-rays through [facility] on 08/07/2024. Patient had an L4-5 discectomy in 1997. Prior to surgery, patient was experiencing posterior neck pain with radiation into her posterior lateral right upper extremity. Today, patient states she is doing well and has no concerns. Patient does not work. She states she has some residual numbness along the right side of her jaw but she is not overly concerned. PA and physician visit. JOSE FARIAS PA-C [address] [place], [address], [facility] 08/07/2024 09:03:24 10/30/2024 text/html Status post C5-6 anterior cervical discectomy fusion which I performedDe2023 for neck and right upper extremity pain. She comes in for her last postoperative visit. She recently underwent MRI scans and a breast biopsy and has had some cervical thoracic pain. All the biopsies were negative for cancer. Prior to the biopsy she was doing well. She does not any radicular arm pain. She feels like she is overall doing fine. ROLAND TATE MD [address] [place] [address], [phone], [facility] 10/30/2024 12:07:36 OBGyn Episode No OBEpisode recorded.
[2024-12-12 09:28] LABS: Basophils % 0.4 % (0.1-2.0); Eosinophils # 0.1 Kmm3 (0.0-0.4); Eosinophils % 2.1 % (0.1-12.0); Hematocrit 43.8 % (37.0-47.0); Hemoglobin 13.6 g/dL (12.2-16.2); Immature Granulocytes # 0.02 10^3uL; Immature Granulocytes % 0.4 %; Lymphocytes # 1.9 K/mm3 (0.7-4.5); Lymphocytes % 35.4 % (10-50); Mean Corpuscular HGB Conc 31.1 g/dL (31.8-35.4); Mean Corpuscular Hemoglobin 28.5 pg (27.0-31.2); Mean Corpuscular Volume 91.6 fl (81-99); Mean Platelet Volume 10.1 fl (7.4-10.4); Monocytes # 0.3 K/mm3 (0.1-1.0); Monocytes % 5.9 % (1.7-9.3); Neutrophils # 2.9 K/mm3 (1.8-7.8); Neutrophils % 55.8 % (37.0-80.0); Nucleated Red Blood Cells # 0 10^3/uL; Nucleated Red Blood Cells % 0 %; Platelet Count 248 K/mm3 (142-424); Red Blood Count 4.78 M/mm3 (4.20-5.40); Red Cell Distribution Width 12.4 % (11.5-17.5); Red Cell Distribution Width-SD 41.3 fL; White Blood Count 5.2 K/mm3 (4.8-10.8)
[2024-12-12 10:55] LABS: Hemoglobin A1C 6.6 % (4.0-6.0)
[2024-12-12 11:51] LABS: Alanine Aminotransferase 15 U/L (12-78); Albumin/Globulin Ratio 1.6 (1.1-1.8); Alkaline Phosphatase 65 U/L (38-126); Anion Gap 11.3 mEq/L (5-15); Aspartate Amino Transferase 22 U/L (14-36); Bilirubin,Total 0.8 mg/dl (0.2-1.3); Blood Urea Nitrogen 11 mg/dl (7-17); Calcium 9.1 mg/dl (8.4-10.2); Carbon Dioxide 27 mmol/L (22.0-30.0); Chloride 103 mmol/L (98-107); Chol/HDL Ratio 3.1 (1-3.5); Cholesterol 192 mg/dl (140-200); Estimated Glomerular Filt Rate 86 ml/min (>60); GFR (African American) 104 ML/MIN (>60); Globulin 2.5 g/dL (1.3-3.2); Glucose 100 mg/dl (74-100); HDL Cholesterol 62 mg/dl (40-60); Potassium 4.3 mmoL/L (3.5-5.1); Sodium 137 mmol/L (136-145); Total Protein,Serum 6.5 g/dl (6.3-8.2); Triglycerides 152 mg/dl (30-150); VLDL Cholesterol 30 mg/dL (0-40)
[2024-12-15 15:26] LABS: Thyroid Stimulating Hormone 0.61 uIU/mL (0.465-4.68)
== END 2024-12-12 23:59 | disposition home or self-care (01) ==
LOC: LAB 08:30
PROVIDERS: Internal Medicine Adolescent Medicine; PCP Nurse Practitioner Family; Visit Provider Nurse Practitioner Family
DX: R73.03 Prediabetes; Z00.00 Encounter for general adult medical examination without abnormal findings
CPT/HCPCS: 36415; 80053; 80061; 83036; 84443; 85025

== ENCOUNTER 2025-01-01 12:38 | Outpatient (CLI) | payer BC, SELFPAY ==
--- OUTSIDE RECORDS SUMMARY | 2024-12-23 05:15 | XMS_ITS ---
Author Organization [facility] Address [address] [place] [address] Care Team Providers Care Cement Mixer Name Role Phone Jorge Esqueda Primary Care Provider [phone] Carly Diamond Unavailable [phone] REASON FOR VISIT Lab F/U Encounters Encounter Location Date Provider Diagnosis [facility] [address] [place] [address] 12/23/2024 Carly Diamond Plan Of Treatment No Information Progress Notes * Ryann MUNOZOB: [birth year] (59 yo F)Acc No.[id number]:12/23/2024 Progress Notes Patient: Albina LUISKim NERINettie Provider: NESTOR Oseguera :1965 A ge:59 Y S ex:Female Date:12/23/2024 Address:[facility] [address] , [place], [place] Pcp:Jorge Esqueda Subjective: * Chief Complaints: * 1 . Lab F/U. * Medical History: Objective: * Vitals: Assessment: Plan: * Treatment: * * Electronic signature of Cassidy Diamond APRN on 01/01/2025 at 12:41 PM EDT Sign off status: Pending * Provider: NESTOR Oseguera Date: 0 12/23/2024 Generated for Avila blount/Di/Getachew on: 0 01/01/2025 12:41 PM EDT
--- OUTSIDE RECORDS SUMMARY | 2024-12-24 05:30 | XMS_ITS ---
Author Organization [facility] DONNA D TAB Address [address] [facility] [address] [place] [address] Care Team Providers Care Computational Sciences Professor Name Role Phone Jorge Esqueda Primary Care Provider Carly Diamond Unavailable [phone] Allergies Allergen (clinical drug ingredient) Drug/Non Drug Allergy documented on EMR Reaction Allergy Type Onset Date Status CECLOR (uncoded) hives Allergy Act sachin Flagyl vomiting Drug Allergy Active codeine Codeine vomiting Drug Allergy Active morphine Morphine vomiting Drug Allergy Active Reason For Referral Reason [facility] Proof Carrier Diagnosis 1 Type 2 diabetes eryn itus without complication, without long-term current use of insulin (E11.9) Referral Organization [facility] ANSON BRUSH Referring Provider First Name Carly Referring Provider Last Name Dara Referring Provider Speciality Family Pra ctice Referred Organization [facility] Referred Address [address] [place] [address] [address] [facility], [place], [place],[address], General Notes Suzanne Birmingham 2024 12:48:27 PM >sent to [facility] Referral Priority Routine REASON FOR VISIT lab Follow up Medications Medication SIG (Take, Route, Frequency, Duration) Notes Start Date End Date Status B-12 1000 MCG 1 tab(s) orally once a day; Duration: 30 day(s) Active Synthroid 75 MCG 1 tab(s) orally once a day Active Vitamin D3 25 MCG (1000 UT) 1 tab(s) orally once a day; Duration: 30 day(s) Active busPIRone HCl 10 MG 1 tab(s) orally every night prn Active KONSYL 3.4 G/6.5 G DIRECTED ORALLY ONCE A DAY; Duration: 7 DAY(S) *Please review for potential replacement for e-prescription and drug interaction check* Active Omeprazole 40 MG 1 cap(s) orally once a day; Duration: 90 days prn Active MiraLax - 17 GRAM ORALLY ONCE A DAY; Duration: 30 DAYS prn *Please review and pick correct strength-formulati on from Wishabian options. If intended option is not shown, discontinue and re-order from Quick Search* Active Estradiol 0.1 MG/GM as directed intravaginally 3 times a week Active Social History Tobacco Use: Social History Observation Description Date Details (start date - stop date) Never Smoker NA - NA Smoking: Question Answer Notes Are you a: nonsmoker Problems Problem Type SNOMED Code ICD Code Onset Dates Problem Status W/U Status Risk Notes Problem Type 2 diabetes mellitus without complication, without long-term current use of insulin (E11.9) Active confirmed Vital Signs Temperature 98.1 degrees Fahrenheit 12/25/19 25 Heart Rate 92 /min 12/24/2024 Blood pressure systolic 104 mm Hg 12/25/19 25 Blood pressure diastolic 78 mm Hg 025 Height 63 in 12/24/2024 Weight 156.4 lbs 12/24/2024 BMI 27.7 kg/m2 12/24/2024 Encounters Encounter Location Date Provider Diagnosis [address] [address] 12/24/2024 Carly Diamond Type 2 diabetes mellitus without complication, without long-term current use of insulin E11.9 Assessments Encounter Date Diagnosis (ICD Code) Assessment Notes Treatment Notes Treatment Clinical Notes Section Notes 12/24/2024 Type 2 diabetes mellitus without complication, without long-term current use of insulin (ICD-10 - E11.9) Learning About Type 2 Diabetes material was printed, Hemoglobin A1c: About This Test material was printed Reviewed the diagnosis and management with consistent carb diet, exercise as tolerated, good water intake, annual eye exam and routine foot care. She is agreeable to meet with a dietitian. Prescription for glucometer sent to monitor periodically. Plan to repeat A1c in 4 to 6 months and if there is any increase in her A1c will start pharmacotherapy. Also discussed that SAMM inhibitor and/or statin therapy may be recommended at some point in the future. Plan Of Treatment Treatment Notes Assessment Notes Type 2 diabetes mellitus wit hout complication, without long-term current use of insulin Learning About Type 2 Diabetes material was printed, Hemoglobin A1c: About This Test material was printed Referrals Referral Date Details 12/24/2024 12/24/2024, [facility] Diet manisha, [address] [facility], [place], [address], Next Appt Details Follow Up: 6 Months, Reason: Progress Notes * Ryann MUNOZOB: [birth year] (59 yo F)Acc No.[id number]:12/24/2024 Progress Notes Patient: Nettie BLACKBURN Provider: NESTOR Oseguera :1965 A ge:59 Y S ex:Female Date:12/24/2024 Address:[address] [place] [address] [place] Pcp:Jorge Esqueda Subjective: * Chief Complaints: * 1 . lab Follow up. * HPI: Radha upton: 59-year-old female presents today to review her recent blood work which indicates new onset type 2 diabetes. Her fasting glucose is normal, as it was last year, but her A1c is 6.6. Last year was 6.1. She has actually done very well with losing weight over the past year and a half or so, down at least 10 pounds. She and her already watch a relatively low-carb diet, drinks only water throughout the day. She struggles a bit with exercise because of some of her responsibilities but also disability due to lumbar disc disease. Both of her parents are diabetic, requiring insulin. No neuropathy symptoms, has never had any proteinuria. Blood pressure is normal without medication and her lipid profile is desirable with an LDL of around 80. * ROS: C ONSTITUTIONAL: Reviewed, No Symptoms Reported: Y es. G ASTROENTEROLOGY: Reviewed, No Symptoms Reported: Y es. U ROLOGY: no D ifficulty urinating. n o B lood in urine. F requent urination yes. * Medical History: h ashimotos - Dr Pérez, Diverticulitis, GERD, Lumbar DDD, Vit B12 deficiency, TMJ, Dr Bright for [employer] care, Normal breast MRI 08/18, Colonoscopy 09/15 - polyps and diverticulosis - 5 year f/u. * Surgical History: c holecystectomy , hysterectomy, ovaries remain , L4-[address] Melendrez 1996 , colonoscopy/EGD 2018, ptosis 05/2023. * Hospitalization/Major Diagno stic Procedure: a miles , diverticulitis , diverticulitis 12/2018. * Family History: F ather: alive, diagnosed with Hypertension, Heart Disease, Diabetes. M other: alive. P aternal Grand Father: . P aternal Grand Mother: , diagnosed with Diabetes, Heart Disease. M aternal Grand Father: . M aternal Grand Mother: . P aternal aunt: , heart transplant, diagnosed with Heart Disease. S ibnancy: alive, sister breast ca, diagnosed with Cancer. C marlonsylvester: alive. 1 brother(s) , 2 sister(s) . 2 son(s) , 1 daughter(s) - healthy. . * Social History: S moking A re [...] day , Notes to Pharmacist: prn, Discontinued methylPREDNISolone 4 MG Tablet as directed Orally as directed , Medication List reviewed and reconciled with the patient * Allergies: C ECLOR: hives - Allergy, Flagyl: vomiting - Allergy, Morphine: vomiting - Allergy, Codeine: vomiting - Allergy. Objective: * Vitals: N urse: KJ, Pain: 0, Temp: 98.1, RR: 18, HR: 92, BP: 104/78, Ht: 63, Wt: 156.4, BMI:27.7. * Examination: G eneral Examination: General P leasant and Cooperative, NAD on RA,. Heart: R egular Rate and Rhythm, no murmur, rubs or gallops. Lungs: c lear to auscultation,. Extremities: n o clubbing, no edema, n o foot lesions,.? Psych N ormal Mood/Affect. Assessment: * Assessment: 1. T ype 2 diabetes mellitus without complication, without long-term current use of insulin - E11.9 (Primary) Plan: * Treatment: * Follow Up: 6 Months * * Sign off status: Completed true * Provider: NESTOR Oseguera Date: 12/24/2024 Generated for Avila blount/Di/eTkayitting on: 01/01/2025 12:41 PM EDT History and Physical Notes * Examination Category Sub-Category Detail Notes Category Not es General Examination Heart: Regular Rate and Rhythm, no murmur, rubs or gallops Lungs: clear to auscultatio n, Extremities: no clubbing, no april a, no foot lesions, General Pleasant and Coopera tive, NAD on RA, Psych Normal Mood/Affect Consultation Request Notes Referral Date Referring Provider Referred Provider Not es 12/24/2024 Carly Diamond [facility] Katerin rutledge
--- OUTSIDE RECORDS SUMMARY | 2024-12-24 08:47 | XMS_ITS ---
Author Organization [facility] Address [address] [place] [address] Care Team Providers Care Supervisor Bonding Name Role Phone Jorge Esqueda Primary Care Provider Carly Diamodn Unavailable [phone] REASON FOR VISIT orders Encounters Encounter Location Date Provider Diagnosis [facility] [address] [place] [address] 12/24/2024 Carly Diamond Type 2 diabetes mellitus without complication, without long-term current use of insulin E11.9 Assessments Encounter Date Diagnosis (ICD Code) Assessment Notes Treatment Notes Treatment Clinical Notes Section Notes 12/24/2024 Type 2 diabetes mellitus without complication, without long-term current use of insulin (ICD-10 - E11.9) Plan Of Treatment Pending Test Test Name Order Date Dietary Consult 12/24/2024 Progress Notes * Ryann MUNOZOB: [birth year] (59 yo F)Acc No.[id number]:12/24/2024 Patient: Kim BLACKBURNberlyn :1965 A ge:59 Y S ex:Female Address:[address], [place] [address] Subjective: * Chief Complaints: * O rders * Medical History: * Surgical History: * Hospitalization/Major Diagno stic Procedure: * Medications: Objective: * Vitals: * Physical Examination: Assessment: * Assessment: 1. T ype 2 diabetes mellitus without complication, without long-term current use of insulin - E11.9 Plan: * Treatment: * Procedure Codes: * true * Date: Generated for Avila blount/Di/eTjonathansmitting on: 0 01/01/2025 12:41 PM EDT
--- OUTSIDE RECORDS SUMMARY | 2025-01-01 12:41 | XMS_ITS | Clinical Summary ---
Author Organization [facility] Address [address] [place] [address] Care Team Providers Care Director Retirement Name Role Phone Carly Diamond APRN Primary Care Provider [phone]- [phone] Sagar Robbins MD Unavailable [phone] Alicia Mathews DDS Unavailable [phone] [...] Info) Description 03/26/2025 9:30 AM EDT Appointment [facility] Ultrasound [address] [place] [address] 04/09/2025 3:45 PM EDT Office Visit Medical Office Building Urology [address] [facility] [address], [address] [place] [address] Virgilio Marques MD [address] [place] [address] Health Maintenance Due Date Last Done Comments [facility]-HIV Screening 1965 [facility]-Hepatitis C Screening 1965 [facility]-Infant/Child/Adol SDOH Screenings 1965 [id number] Vaccine (#1) 1971 [facility]- SDOH Screenings 1984 [...] Td or Tdap) 10/05/2019 10/04/2009 [facility]-Influenza Vaccine (#1) 2025 [facility]-Depression Screening 03/27/2025 03/27/2024 [facility]-Breast Cancer [...] complete this topic Insurance KIKA Care Teams Director Retirement Relationship Specialty Start Date End Date Carly Diamond APRN [address] [id number] PCP - General 09/19/21 Sagar Robbins MD [address] [place] [address] Surgeon Neurosurgery 10/04/21 Alicia Mathews DDS [address] [place] [address] Dentist Dentist 04/25/22 Alirio Miranda DMD [address] [place] [address] Dentist 04/25/22
--- OUTSIDE RECORDS SUMMARY | 2025-01-01 12:41 | XMS_ITS | Encounter Summary ---
Author Organization [facility] Address [facility] [place] [address] Care Team Providers Care Field Coil Winder Name Role Phone Nonstaff, Referring MD Primary Care Provider [phone] Anay Pérez MD Unavailable [phone] Reason for Visit * Reason Comments Medications Refill Encounter Details Date Type Department Care Team (Late st Contact Info) Description 06/09/2021 Refill [facility] - Diabetes & Endocrine Center, [place] [address] [facility] [address] [place] [address] Anay Pérez MD [address] [facility] [address] [place] [address] Medications Refill Social History Tobacco [...] 09/07/2025 10:00 AM EDT Appointment 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
--- OUTSIDE RECORDS SUMMARY | 2025-01-01 12:41 | XMS_ITS | Referral Summary ---
Author Organization [facility] ([place], [place], [place], [place]) Address [address] [place] [address] Care Team Providers Care Trench Shovel Operator Name Role Phone Jorge Esqueda MD Primary Care Provider [phone] Allergies Active Allergy Reactions Criticality Noted Date [...] = 0.6 oz pur e alcohol) rare [facility] - Mental Health Answer Date Recorde d Little interest or pleasure in doing things Not at all 06/13/2024 Feeling down, depressed, or hopeless Not at all 06/13/2024 Feeling of Stress Not on file 06/13/2024 [facility] Intimate Partner Violence Answer Da [...] Description 02/26/2025 1:00 PM EDT Hospital Encounter [facility] Preadmission Testing [address] [facility] [address] [place] [address] 03/13/2025 7:30 AM EDT Hospital Encounter [facility] Surgery Department [address] [place] [address] Sri Kim, EDGAR [address] [place] [address] [address] [place] [address] 03/13/2025 7:30 AM EDT - 03/13/2025 10:52 AM EDT Surgery [facility] Surgery Department [address] [place] [address] [place] [address] [place] [address] [address] [place] [address] RIGHT FIRST MPJ ARTHRODESIS, RIGHT LOBO OSTEOTOMY [...] AM EDT Medical Devices Implanted Type Area Receiver/Laborer Device Identifier Shelf Expiration Date Model / Serial / Lot Bone Vivigen Formable Cell [facility] [id number] - [id number] Implanted:Qty : 1 on 06/20/2024 by Fili Pittman Jr., MD at [facility] IMPLANTS N/A: Spine Cervical LIFENET:LIFENET TRANSPLANT SRV 05/20/2025 [id number] / Cage Eit Cif H 6mm 8d S [id number] - [id number] Implanted:Qty : 1 on 06/20/2024 by Fili Pittman Jr., MD at [facility] IMPLANTS N/A: Spine Cervical J &J:DEPUY:DEPUY SPINE 03/14/2034 [id number] / / [id number] Plt Ant Skyln Hybrd Lvl1 12mm - [id number] Implanted:Qty : 1 on 06/20/2024 by Fili Pittman Jr., MD at [facility] IMPLANTS N/A: Spine Cervical J &J:DEPUY:DEPUY SPINE 0 12 / 12 / Scr Skyln Vari Sd 14mm 014 - [id number] Implanted:Qty : 4 on 06/20/2024 by Fili Pittman Jr., MD at [facility] IMPLANTS N/A: Spine Cervical J &J:DEPUY:DEPUY SPINE 500 14 / 14 / Explanted Type Area Receiver/Laborer Device Identifier Shelf Expiration Date Model / Serial / Lot Pin Compr Peak Pa 12mm - [id number] Explanted:Qty : 2 on 06/20/2024 at [facility] IMPLANTS N/A: Spine Cervical J &J:DEPUY:DEPUY SPINE 0 12 / 12 / Insurance BLUE CROSS/BLUE SHIELD Care Teams Trench Shovel Operator Relationship Specialty Start Date End Date Jorge Esqueda MD [address] [place] [address] PCP - General Adolescent Medicine 06/13/24
--- OUTSIDE RECORDS SUMMARY | 2025-01-01 12:41 | XMS_ITS | Encounter Summary ---
Author Organization [facility] Address [address] [place] [address] Care Team Providers Care Furnace Filler Name Role Phone Trace Gee MD Primary Care Provider [phone] Nonstaff, Referring Primary Care Provider [phone] Anay Pérez MD Unavailable [phone] Reason for Visit * Reason Onset Date Comments Results 07/19/2017 lab results ([facility]) Encounter Details Date Type Department Care Team (Late st Contact Info) Description 07/19/2017 Telephone [facility] - Diabetes [facility] Endocrine Center, [place] [address] [place] [address] Anay Pérez MD [address] [place], [place] [address] Results (lab results ([facility])) Social History Tobacco Use Types Packs/Day Years [...] 07/19/2017 1:59 PM EST Fax received from [facility] Labs collected on 07/18/17 documented in this encounter Plan of Treatment Upcoming Encounters Date Type Department Care Team (Late st Contact Info) Description 09/07/2025 10:00 AM EDT Appointment [facility] - [facility], [place] [address] [facility] [address] [place] [address] Anay Pérez MD [address] [place], [place] [address] documented as of this encounter Visit Diagnoses Not on filedocumented in this encounter Care Teams Furnace Filler Relationship Specialty Start Date End Date Trace Gee MD [address] [place], [place] [address] PCP - General Family Medicine 12/28/16 05/26/19 Alonso Olivier MD [address] [place], [place] [address] PCP - General 05/27/19 Anay Pérez MD [address] [place] [id number] Endocrinology/Diabetes/Met abolism 08/24/20 documented as of this encounter
--- OUTSIDE RECORDS SUMMARY | 2025-01-01 12:41 | XMS_ITS | Clinical Summary ---
Author Organization [facility] Address [address] [place], [place] [address] Care Team Providers Care Safety Associate Name Role Phone Nonstaff, Referring Primary Care Provider [phone] Anay Pérez MD Unavailable [phone] Allergies Active Allergy Reactions Criticality Noted Date [...] to Ruben's thyroiditis Fatigue, unspecified type 12/29/2016 Family History Medical History Relation Name Comments [...] Description 09/07/2025 10:00 AM EDT Appointment [facility] - [facility], [place] [address] [facility] [address] [place] [address] Anay Pérez MD [address] [facility] [address] [place] [address] Health Maintenance Due Date Last [...] 1 0 Years) 10/05/2019 10/04/2009 COVID-19 Vaccine (1 - 2023-2 5 season) 2024 Diabetes A1c Monitoring 03/12/2024 09/10/19, 09/21/2022, 05/17/2021, Additional history exists BMI Counseling 06/25/2024 Depression Screening 06/25/2024 Influenza Vaccination (#1) 2025 Renal Monitoring 06/13/2025 06/13/2024, , 09/21/2022, Additional history exists Breast Cancer Screening 08/13/2025 08/13/19, 08/03/2023, 08/03/2023, Additional history exists Procedures Procedure [...] EDT) Sodium 142 135 - 146 mmol/L [facility] Potassium 4.6 3.5 - 5.1 mmol/L [facility] Chloride 105 98 - 110 mmol/L [facility] CO2 27 22 - 29 mmol/L [facility] Anion Gap 10 5 - 13 mmol/L [facility] Comment:Anion gap calculatio n does not include potassium (K+) value. BUN 10 7 - 25 mg/dL [facility] Creatinine 0.68 0.50 - 1.20 mg/dL [facility] Glucose 114(H) 71 - 99 mg/dL [facility] Comment:Reference range (71- 99 mg/dL) refers only to fasting samples, and does not apply to non-fasting samples. eGFR CKD-EPI 2020 102 See Note [facility] Comment: eGFR calculated with 2020 CKD-EPI equation using creatinine, patient's age and gender. Other factors, especially muscle mass, may affect accuracy and need to be considered. Patient values should be interpreted as a trend. The reference interval is >60 mL/min/1.73m2. Calcium 9.4 8.5 - 10.5 mg/dL [facility] Comment:Effective 10/26/2022, the calcium reference range has been updated. Phosphorus 3.4 2.5 - 4.5 mg/dL [facility] Albumin 4.3 3.5 - 5.0 g/dL [facility] BUN/Creatinine Ratio 15 [facility] Serum (Serum) 09/10/2023 8:3 9 AM EDT 09/10/2023 3:09 PM EDT us Anay Pérez MD CHEMISTRY ORDERABLES Jenny turpin Result [facility] [address] * (ABNORMAL) HGB, A1C (GLYCOHEMOGLOBIN) (09/10/2023 8:39 AM EDT) Hgb A1C 5.8(H) 4.0 - 5.6 % [facility] Comment: Reference Ranges for [...] Glycohemoglobin Standardization program (NGSP) and traceable to DCCT. Estimated Average Glucose 120(H) 68 - 114 mg/dL [facility] Whole Blood 09/10/2023 8:39 AM EDT 09/10/2023 3:28 PM EDT us Anay Pérez MD CHEMISTRY ORDERABLES Jenny l Result [facility] [address] from Last 3 Months or Most Recently Relevant to Health Maintenance Insurance ANTHEM ANTHEM Care Teams Safety Associate Relationship Specialty Start Date End Date Nonstaff, MD Alonso PCP - General 05/27/19 Anay Pérez MD [address] [facility] [address] [place] [address] Endocrinology/Diabetes/Met abolism 08/24/20
--- OUTSIDE RECORDS SUMMARY | 2025-01-01 12:41 | XMS_ITS | Patient Health Record ---
Author Organization [facility] Address [address] [facility] [address] [place] [address] Care Team Providers Care Licensing Director Name Role Phone Jorge Esqueda Primary Care Provider Carly Diamond Unavailable [phone] Migration, Provider Unavailable Unavailable Allergies Allergen (clinical drug ingredient) Drug/Non Drug Allergy documented on EMR Reaction Allergy Type Onset Date Status CECLOR (uncoded) hives Allergy Act sachin metronidazole Flagyl vomiting Drug Allergy Act sachin codeine Codeine vomiting Drug Allergy Active morphine Morphine vomiting Drug Allergy Active Results Component Value Reference Range Notes CULTURE, URINE, ROUTINE (395 ) Reviewed date:08/14/2024 01:47:21 PM Interpretation: Performing Lab:[facility], [facility] Center[facility]djsHW[address] Tino Barksdale Notes/Report: NON-FASTING CULTURE, URINE, ROUTINE SEE NOTE CULTURE, URINE, ROUTINE Micro Number: [id number] Test Status: Final Specimen Source: Urine Specimen [...] NN = See Therapy Comments THERAPY COMMENTS Note 1: For infections other than uncomplicated UTI caused by E. coli, K. pneumoniae or P. mirabilis: Cefazolin is resistant if LESLEY > or = 8 mcg/mL. (Distinguishing susceptible versus intermediate for isolates with LESLEY < or = 4 mcg/mL requires additional testing.) Note 2: For uncomplicated UTI caused by E. coli, K. pneumoniae or P. mirabilis: Cefazolin is susceptible if LESLEY <32 mcg/mL and predicts susceptible to the oral agents cefaclor, cefdinir, cefpodoxime, cefprozil, cefuroxime, cephalexin and loracarbef. M-Thyroid Stimulating Hormon e Reviewed date:12/16/2024 09:26:14 PM Interpretation: Performing Lab: Notes/Report: TSH 0.61 0.465-4.68 uIU/mL M-Lipid Panel Reviewed date:12/15/2024 03:17:09 PM Interpretation: Performing Lab: Notes/Report: Patient Fasting? Y TRIG 152 30-150 mg/dl CHOL 192 140-200 mg/dl DLDL 80.10 100-129 mg/dL VLDL 30 0-40 mg/dL HDL 62 40-60 mg/dl CHLHDL 3.1 1-3.5 M-Hemoglobin A1C Reviewed date:12/15/2024 03:17:09 PM Interpretation: Performing Lab: Notes/Report: HGBA1C 6.6 4.0-6.0 % < 6% Non-Diabetic Level < 7% Controlled Diabetic Level > 8% Poorly Controlled Diabetic Level M-Comprehensive Metabolic Pa jonatan Reviewed date:12/15/2024 03:17:08 PM Interpretation: Performing Lab: Notes/Report: NA 137 136-145 mmol/L K 4.3 3.5-5.1 mmoL/L CL 103 98-107 mmol/L CO2 27 22.0-30.0 mmol/L GAP 11.3 5-15 mEq/L BUN 11 7-17 mg/dl CREATT 0.70 0.52-1.04 mg/dl GFRAA 104 >60 ML/MIN EGFR 86 >60 ml/min GLU 100 74-100 mg/dl CA 9.1 8.4-10.2 mg/dl BILIT 0.8 0.2-1.3 mg/dl AST 22 14-36 U/L ALT 15 12-78 U/L TP 6.5 6.3-8.2 g/dl ALB 4.0 3.5-5.0 g/dl GLOB 2.5 1.3-3.2 g/dL AGRATIO 1.6 1.1-1.8 ALP 65 38-126 U/L M-Complete Blood Count Auto Diff Reviewed date:12/15/2024 03:17:08 PM Interpretation: Performing Lab: Notes/Report: WBC 5.2 4.8-10.8 K/mm3 RBC 4.78 4.20-5.40 M/mm3 HGB 13.6 12.2-16.2 g/dL HCT 43.8 37.0-47.0 % MCV 91.6 81-99 fl MCH 28.5 27.0-31.2 pg MCHC 31.1 31.8-35.4 g/dL RDW 12.4 11.5-17.5 % PLT 248 142-424 K/mm3 MPV 10.1 7.4-10.4 fl NE% 55.8 37.0-80.0 % LY% 35.4 10-50 % MO% 5.9 1.7-9.3 % EO% 2.1 0.1-12.0 % BA% 0.4 0.1-2.0 % NE# 2.9 1.8-7.8 K/mm3 LY# 1.9 0.7-4.5 K/mm3 MO# 0.3 0.1-1.0 K/mm3 EO# 0.1 0.0-0.4 Kmm3 BA# 0.0 0-0.2 K/mm3 RDW-SD 41.3 NRBC% 0 IG% 0.4 NRBC# 0 IG# 0.02 Urinalysis Reviewed date:08/11/2024 02:33:35 PM Interpretation: Performing Lab: Notes/Report: Color/Clarity yellow Leuk trace Nitrite neg Urobili 0.2 Protein neg pH 6.5 Blood trace-intact Sp. Gr. >=1.030 Ketone neg Bili neg Glucose neg MRI : Cervical spine without contrast Reviewed date:02/05/2024 02:06:04 PM Interpretation: Performing Lab: Notes/Report: Rapid Covid/Flu A-B Combo Reviewed date:07/23/2024 02:46:22 PM Interpretation: Performing Lab: Notes/Report: Rapid Covid Negative Flu A Negative Flu B Negative Reason For Referral Reason MRI C-Spine Diagnosis 1 Cervical pain (neck) (M54.2) Diagnosis 2 Abnormal electromyog noe [EMG] (R94.131) Referral Organization [facility] Referring Provider First Name Jorge Referring Provider Last Name Dheeraj [facility] Referred Organization [facility] Referred Address [address] [facility] [address] [facility], [place], [place],[address], Referred Provider Specialty Diagnostic R adiology General Notes Suzanne Birmingham 2023 11:30:07 AM >Pending Precert- Call [phone] to check precert, Suzanne Birmingham 01/14/2024 04:21:48 PM >Left a vm to check status. Had to leave a message and they will call with information., Suzanne Birmingham 01/16/2024 11:01:45 AM >left another vm with the precert dept demanding a call back with precert status, Suzanne Birmingham 01/17/2024 02:30:55 PM >No Precert required Ref # [id number] spoke with Minerva CPT Code 38324 Referral Priority Routine Referral Appointment Date 01/31/[address] Cruz - Neurosurg ritesh Diagnosis 1 Cervical pain (neck) (M54.2) Diagnosis 2 Radicular pain in ri ght arm (M79.2) Referral Organization [facility] Referring Provider First Name Carly Referring Provider Last Name Dara [facility]erred Provider Specialty Neurological Surgery General Notes Suzanne Birmingham 2023 09:34:23 AM >Referral sent to Dr. Cruz. They will contact patient to schedule. 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 1 Type 2 diabetes eryn itus without complication, without long-term current use of insulin (E11.9) Referral Organization [facility] Referring Provider First Name Carly Referring Provider Last Name Dara [facility]erred Organization [facility] Referred Address [address] [place],[address],[place] General Notes Suzanne Birmingham 2024 12:48:27 PM >sent to [facility] Referral Priority Routine Medications Medication SIG (Take, Route, Frequency, Duration) Notes Start Date End Date Status Omeprazole 40 MG 1 cap(s) orally once a day; Duration: 90 days prn Active B-12 1000 MCG 1 tab(s) orally once a day; Duration: 30 day(s) Active MiraLax - 17 GRAM ORALLY ONCE A DAY; Duration: 30 DAYS prn *Please review and pick correct strength-formulati on from [employer] options. If intended option is not shown, discontinue and re-order from Quick Search* Active Synthroid 75 MCG 1 tab(s) orally [...] directed intravaginally 3 times a week Active Immunizations Vaccine Route Administration Date Status Comme nts Influenza-Fluzone 3+years (NON-MEDICARE) Unknown 04/17/2018 Administered Social History Tobacco Use: Social History Observation Description Date Details (start date - stop date) Never Smoker NA - NA Smoking: Question Answer Notes Are you a: nonsmoker Problems Problem Type SNOMED Code ICD Code Onset Dates Problem Status W/U Status Risk Notes Problem Chronic pain (08329703) Other chronic pain (G89.29) Active confirmed Problem Seasonal allergic rhinitis (908423839) Other seasonal allergic rhinitis (J30.2) Active confirmed Problem Slow transit constipation (86710341) Slow transit constipation (K59.01) Active confirmed Problem Sciatica (06236383) Lumbago with sciatica, right side (M54.41) Active confirmed Problem Sciatica (33071440) Lumbago with sciatica, left side (M54.42) Active confirmed Problem Mixed anxiety and depressive disorder (933028249) Depression with anxiety (F41.8) Active confirmed Problem Hypothyroidism (58726584) Hypothyroidism (E03.9) Active confirmed Problem Urinary frequency (398896914) Urinary frequency (R35.0) Active confirmed Problem Diverticulitis (96341168) Diverticulitis (K57.92) Active confirmed Problem Overweight (391116675) Overweight (BMI 25.0-29.9) (E66.3) Active confirmed Problem Chronic pain (04239950) Other chronic pain (G89.29) Active confirmed Problem Body mass index 30+ - obesity (327870838) BMI 30.0-30.9,adult (Z68.30) Active confirmed Problem Acquired hypothyroidism (529102233) Acquired hypothyroidism (E03.9) Active confirmed Problem Degeneration of lumbosacral intervertebral disc (40713675) DDD (degenerative disc disease), lumbosacral (M51.37) Active confirmed Problem Diverticulitis of sigmoid colon (818957208) Diverticulitis of sigmoid colon (K57.32) Active confirmed Problem Overactive urinary bladder (disorder) (051214361) OAB (overactive bladder) (N32.81) Active confirmed Problem Allergic rhinitis caused by pollen (43629568) Seasonal allergic rhinitis due to pollen (J30.1) Active confirmed Problem Gastroesophageal reflux disease (disorder) (549690293) Chronic GERD (K21.9) Active confirmed Problem Type II diabetes mellitus without complication (726608386) Type 2 diabetes mellitus without complication, without long-term current use of insulin (E11.9) Active confirmed Problem Paresthesia of lower extremity (078527949) Paresthesia of lower extremity (R20.2) Active confirmed Problem Diverticular disease of colon (105000047) Diverticulosis (K57.90) Active confirmed Problem Gastroduodenitis (102530731) Gastritis without bleeding, unspecified chronicity, unspecified gastritis type (K29.70) Active confirmed Problem History of lumbar discectomy (43923762956932311) History of lumbar discectomy (Z98.890) Active confirmed Problem Secondary insomnia (G47.09) Active confirmed Vital Signs Heart Rate 92 /min 12/24/2024 Temperature 98.1 degrees Fahrenheit 12/24/2024 Blood pressure diastolic 78 mm Hg 12/24/2024 Height 63 in 12/24/2024 Blood pressure systolic 104 mm Hg 12/24/2024 Weight 156.4 lbs 12/24/2024 BMI 27.7 kg/m2 12/24/2024 Encounters Encounter Location Date Provider Diagnosis [facility] [address] [place] [address] 09/27/2024 Provider Migration [facility] [place] [address] [address] 07/23/2024 Carly Diamond Subacute cough R05.2 and URI with cough and congestion J06.9 [facility] [address] [place] [address] 08/11/2024 Carly Diamond Dysuria R30.0 ; Prediabetes R73.03 and Routine medical exam Z00.00 [facility] [address] [place] [address] 09/26/2024 Carly Montagueence Otalgia, right ear H92.01 and Dysfunction of right eustachian tube H69.91 [facility] [address] [place] [address] 11/20/2024 Carly Montagueence Otalgia, right ear H92.01 and Dysfunction of right eustachian tube H69.91 [facility] [place] [address] [address] 12/24/2024 Carly Diamond Type 2 diabetes mellitus without complication, without long-term current use of insulin E11.9 [facility] [address] [address] 01/14/2024 Carly Montagueence [facility] [address] [place] [address] 01/17/2024 Jorge Esqueda Cervical pain (neck) M54.2 [facility] [address] [place] [address] 02/05/2024 Carly Diamond [facility] [place] [address] [facility] [address] [place] [address] 12/04/2024 Carly Diamond [facility] [address] [place] [address] 12/15/2024 Jorge Esqueda Hypothyroidism E03.9 [facility] [address] [place] [address] 12/24/2024 Carly Diamond [facility] [address] [place] [address] 12/24/2024 Carly Diamond Type 2 diabetes mellitus without complication, without long-term current use of insulin E11.9 Assessments Encounter Date Diagnosis (ICD Code) Assessment Notes Treatment Notes Treatment Clinical Notes Section Notes 01/17/2024 Cervical pain (neck) (ICD-10 - M54.2) 07/23/2024 URI with cough and congestion (ICD-10 - J06.9) Discussed the etiology and expected course of a viral URI. Discussed supportive care and symptom management with PO fluids, Antipyretics, and antihistamines. Discussed the rational for not prescribing antibiotics for viral infection. Discussed the signs and symptoms of worsening condition and need for reassessment in clinic or ED. 07/23/2024 Subacute cough (ICD-10 - R05.2) 08/11/2024 Dysuria (ICD-10 - R30.0) Discussed suspected UTI based on symptoms/UA results and need for treatment with antibiotics as well as good water intake. Discussed return precautions including fever, vomiting, intractable pain, etc. 08/11/2024 Prediabetes (ICD-10 - R73.03) due for monitoring labs 09/26/2024 Otalgia, right ear (ICD-10 - H92.01) Reassurance provided, this will typically resolve with time. Continue Zyrtec, routine use of Flonase and we discussed the addition of a short acting decongestant which may be helpful. If symptoms persist or increase would also be reasonable to try a round of steroids. Return precautions reviewed 09/26/2024 Dysfunction of right eustachian tube (ICD-10 - H69.91) 11/20/2024 Otalgia, right ear (ICD-10 - H92.01) Reassurance provided, this will typically resolve with time. Continue Zyrtec, routine use of Flonase and short acting decongestant PRN. If no improvement with steroids will refer to ENT 11/20/2024 Dysfunction of right eustachian tube (ICD-10 - H69.91) 12/15/2024 Hypothyroidism (ICD-10 - E03.9) 12/24/2024 Type 2 diabetes mellitus without complication, [...] any increase in her A1c will start pharmacotherapy . Also discussed that SAMM inhibitor and/or statin therapy may be recommended at some point in the future. 12/24/2024 Type 2 diabetes mellitus without complication, without long-term current use of insulin (ICD-10 - E11.9) 08/11/2024 Routine medical exam (ICD-10 - Z00.00) Plan Of Treatment Pending Test Test Name Order Date CT Scan : Abdomen and Pelvis, with and w ithout contrast 02/11/2020 Dietary Consult 12/24/2024 M-Complete Blood Count Auto Diff 025 M-Complete Blood Count Auto Diff 018 M-Comprehensive Metabolic Panel 08/11/19 25 M-Basic Metabolic Panel 02/15/2018 M-Hemoglobin A1C 08/11/2024 M-Lipid Panel 08/11/2024 M-Lipid Panel 02/15/2018 M-Thyroid Stimulating Hormone 02/15/2018 M-Thyroid Stimulating Hormone 12/15/2024 Physical Therapy : Aquatic Therapy 01/23 Physical Therapy : Aquatic Therapy 12/22 LIPID PANEL, STANDARD (7600) 12/03/2023 COMPREHENSIVE METABOLIC PANEL (89886) CBC (INCLUDES DIFF/PLT) (6399) HEMOGLOBIN A1c (496) 12/03/2023 TSH W/REFLEX TO FT4 (56993) 12/03/2023 Insurance Providers Payer Name Payer Address Payer Phone Subscriber Number Group Number Insured Name Patient Relationship to Insured Coverage Start Date Coverage End Date [facility] [address] [place] [address] [id number] Nettie Munoz Self - patient is the insured Medications Administered Medication Instructions Date of Administration Dosage Notes Dexamethasone 4mg Injection 05/11/2021 4 mg Dexamethasone 4mg Injection 02/13/2023 4 mg Triamcinolone Acetonide 40mg Injection 12/12/2018 1 mL Medical (General) History Medical History History ICD Code hashimotos - Dr Pérez diverticulitis GERD Lumbar DDD Vit B12 deficiency TMJ Dr Bright for [employer] care Normal breast MRI 08/18 Colonoscopy 09/15 - polyps and diverticul osis - 5 year f/u Surgical History Surgery Date(Month/Year) cholecystectomy hysterectomy, ovaries remain L4-[address] Melendrez 1996 colonoscopy/EGD 2019 ptosis 05/2023 Hospitalization History Reason Date(Month/Year) diverticulitis above diverticulitis 12/2018
--- OUTSIDE RECORDS SUMMARY | 2025-01-01 12:41 | XMS_ITS | Clinical Summary ---
Author Organization [employer] ([place], [place], [place] Address [address] [place] [address] Care Team Providers Care Photo Offset Printer Name Role Phone Jorge Esqueda MD Primary [...] = 0.6 oz pur e alcohol) rare [facility] - Mental Health Answer Date Recorde d [...] Description 02/26/2025 1:00 PM EDT [facility] [address] [facility] [address] [place] [address] 03/13/2025 7:30 AM EDT [facility] [address] [place] [address] Sri Kim, ZARA [address] [facility] [address] [place] [address] 03/13/2025 7:30 AM EDT - 03/13/2025 10:52 AM EDT Surgery [facility] [address] [place] [address] Sri Kim DPM [address] [facility] [address] [place] [address] RIGHT FIRST MPJ ARTHRODESIS, RIGHT LOBO OSTEOTOMY [...] 1966 Sigmoidoscopy 1966 Diabetic Eye Exam 1976 HIV Screening 1981 Hepatitis C Screening 1984 Pneumococcal 50+ years (1 of 2 - PCV) 1985 Pap Smear 1987 Breast Cancer Screening 2006 Lipid Panel 2011 DTAP/TDAP/TD VACCINES (2 - T d or Tdap) 10/05/2019 10/04/2009 COVID-19 VACCINE ( season) 2024 06/23/2021, 11/12/2020, 10/22/2020 Hemoglobin A1C 06/13/2024 Influenza Vaccine (#1) 2025 04/21/2021 Depression Screening (12+) 06/13/2025 06/13/2024 Tobacco Cessation Counseling and Screening (12+) 06/20/2025 06/20/2024 Shingles Vaccine (Zoster) Completed 04/11/2021, 03/2020 Medical Devices Implanted Type Area Supervisor Paint Device Identifier Shelf Expiration Date Model / Serial / Lot Bone Vivigen Formable Cell 5cc [id number] - [id number] Implanted:Qty : 1 on 06/20/2024 by Fili Pittman Jr., MD at [facility] IMPLANTS N/A: Spine Cervical LIFENET:LIFENET TRANSPLANT SRV 05/20/2025 [id number] 02 / [id number] / Cage Eit Cif H 6mm 8d S [id number] - [id number] Implanted:Qty : 1 on 06/20/2024 by Fili Pittman Jr., MD at [facility] IMPLANTS N/A: Spine Cervical J &J:DEPUY:DEPUY SPINE 03/14/2034 [id number] / / [id number] Plt Ant Skyln Hybrd Lvl1 12mm 186--[id number] - [id number] Implanted:Qty : 1 on 06/20/2024 by Fili Pittman Jr., MD at [facility] IMPLANTS N/A: Spine Cervical J &J:DEPUY:DEPUY SPINE 0 12 / 12 / Scr Skyln Vari Sd 14mm [id number] - [id number] Implanted:Qty : 4 on 06/20/2024 by Fili Pittman Jr., MD at [facility] IMPLANTS N/A: Spine Cervical J &J:DEPUY:DEPUY SPINE 0 14 / 14 / Explanted Type Area Supervisor Paint Device Identifier Shelf Expiration Date Model / Serial / Lot Pin Compr Peak Pa 12mm - [id number] Explanted:Qty : 2 on 06/20/2024 at [facility] IMPLANTS N/A: Spine Cervical J &J:DEPUY:DEPUY SPINE 12 / 12 / Insurance BLUE CROSS/BLUE SHIELD Care Teams Photo Offset Printer Relationship Specialty Start Date End Date Jorge Esqueda MD [address] [place] [address] PCP - General Adolescent Medicine 06/13/24
--- OUTSIDE RECORDS SUMMARY | 2025-01-01 12:42 | XMS_ITS | Encounter Summary ---
Author Organization [facility] Address [facility] [place] [address] Care Team Providers Care Bar Supervisor Name Role Phone Nonstaff, Referring MD Primary Care Provider [phone] Anay Pérez MD Unavailable [phone] Reason for Visit * Reason Onset Date Comments Records 11/08/2021 Encounter Details Date Type Department Care Team (Late st Contact Info) Description 11/08/2021 Telephone [facility] - [facility], [address] [place] [address] Anay Pérez MD [address] [facility] [address] [place] [address] Records Social History Tobacco Use [...] received and will be sent to the Walk-in (formallyknown as [employer] ) for processing. Scanned request in media. documented in this encounter Plan of Treatment Upcoming Encounters Date Type Department Care Team (Late st Contact Info) Description 09/07/2025 10:00 AM EDT Appointment [facility], [place] [address] [facility] [address] [place] [address] Anay Pérez MD [address] [place] [address] documented as of this encounter Visit Diagnoses Not on filedocumented in this encounter Care Teams Bar Supervisor Relationship Specialty Start Date End Date Nonstaff, MD Alonso PCP - General 05/27/19 Anay Pérez MD [address] [place] [address] Endocrinology/Diabetes/Met abolism 08/24/20 documented as of this encounter
--- OUTSIDE RECORDS SUMMARY | 2025-01-01 12:42 | XMS_ITS | Encounter Summary ---
Author Organization Healthcare Address [address] [place] [address] Care Team Providers Care Assistant Counsel Name Role Phone Samantha Diamondah Sukhi GALLOWAY Primary Care Provider + [phone] Sagar Robbins MD Unavailable [phone] Alicia Mathews DDS Unavailable [phone] Alirio Miranda DMD Unavailable [phone] Encounter Details Date Type Department Care Team (Late Contact Info) Description 09/10/2023 Orders Only External Location [address] [place] [address] Trace Miranda MD [address] [id number] Social History Tobacco Use Types Packs/Day Years [...] Info) Description 03/26/2025 9:30 AM EDT Appointment [facility] Ultrasound [address] [place] [address] 04/09/2025 3:45 PM EDT Office Visit Medical Office Building Urology [address] [facility], [address] [place] [address] Virgilio Marques MD [address] [place] [address] documented as of this encounter [...] documented as of this encounter Care Teams Assistant Counsel Relationship Specialty Start Date End Date Carly Diamond APRN [address] [place] [address] PCP - General 09/19/21 Sagar Robbins MD [address] [place] [address] Surgeon Neurosurgery 10/04/21 Alicia Mathews DDS [address] [place] [address] Dentist Dentist 04/25/22 Alirio Mirnada DMD [address] [place] [address] Dentist 04/25/22 documented as of this encounter
--- OUTSIDE RECORDS SUMMARY | 2025-01-01 12:42 | XMS_ITS | Encounter Summary ---
Author Organization [facility] Address [address] [place] [id number] Care Team Providers Care Director Presales Name Role Phone Trace Gee MD Primary Care Provider [phone] Nonstaff, Referring Primary Care Provider [phone] Anay Pérez MD Unavailable [phone] Reason for Visit * Reason Onset Date Comments Other 03/26/2018 Appointment Encounter Details Date Type Department Care Team (Late st Contact Info) Description 03/26/2018 Telephone [facility] - [facility], [address] [place] [address] Anay Pérez MD [address] [facility] [address] [place] [address] Other (Appointment) Social History Tobacco [...] at 11:30 * Telephone Encounter - Anay éPrez MD - 03/26/2018 2:24 PM EDT I could see her SundayApril 01 at 11:30 * Telephone Encounter - Zainab Jennings - 03/26/2018 1:30 PM EDT Pt called stated she is scheduled for 03/[address] Pérez @ [facility]. Pt stated she is unable to keep [...] incase any cancellations come up Pt ph# [phone] documented in this encounter Plan of Treatment Upcoming Encounters Date Type Department Care Team (Late st Contact Info) Description 09/07/2025 10:00 AM EDT Appointment [facility], [place] [address] [facility] [address] [place] [address] Anay Pérez MD [address] [facility] [address] [place] [address] documented as of this encounter Visit Diagnoses Not on filedocumented in this encounter Care Teams Director Presales Relationship Specialty Start Date End Date Trace Gee MD [address] [place] [address] PCP - General Family Medicine 12/28/16 05/26/19 Alonso Olivier MD [address] [place] [id number] PCP - General 05/27/19 Anay Pérez MD [address] [place] [address] Endocrinology/Diabetes/Met abolism 08/24/20 documented as of this encounter
--- OUTSIDE RECORDS SUMMARY | 2025-01-01 12:42 | XMS_ITS | Encounter Summary ---
Author Organization [facility] Address [address] [place] [address] Care Team Providers Care Grinding Wheel Facer Name Role Phone Nonstaff, Referring Primary Care Provider [phone] Anay Pérez MD Unavailable [phone] Reason for Visit * Reason Comments Medications Refill Encounter Details Date Type Department Care Team (Late st Contact Info) Description 08/04/2022 Refill [facility] Diabetes & Endocrine [address] [place] [address] Doris Reynolds MD [address] 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
== END 2025-01-01 23:59 | disposition home or self-care (01) ==
LOC: DIETICIAN 12:39
PROVIDERS: PCP Nurse Practitioner Family; Visit Provider Nurse Practitioner Family
DX: E11.9 Type 2 diabetes mellitus without complications (principal); E03.8 Other specified hypothyroidism; E06.3 Autoimmune thyroiditis
CPT/HCPCS: 97802